=== PATIENT | male | born 1950 | race Caucasian/White ===

== ENCOUNTER 2020-10-27 14:17 | Inpatient (IN) ==
[2020-10-27 14:52] LABS: ABG BASE EXCESS -1.2 mmol/L (-2.0-2.0); ABG HCO3 23.6 mmol/L (22-26)
[2020-10-27 14:53] LABS: ABG ALLEN TEST POS
[2020-10-27 15:06] LABS: BASOPHILS % (AUTO) 0.3 % (0.2-1.0); EOSINOPHILS % (AUTO) 0.1 % (0.9-2.9); HEMATOCRIT 49.3 % (42.0-54.0); HEMOGLOBIN 15.9 g/dL (13.5-18.0); LYMPHOCYTES # (AUTO) 0.4 X10^3/uL (1.3-2.9); LYMPHOCYTES % (AUTO) 3.4 % (21.0-51.0); MEAN CORPUSCULAR HEMOGLOBIN 27.7 pg (27.0-34.0); MEAN CORPUSCULAR HGB CONC 32.3 g/dL (33.0-35.0); MEAN CORPUSCULAR VOLUME 85.6 fL (80.0-100.0); MEAN PLATELET VOLUME 7.2 fL (7.4-11.0); MONOCYTES # (AUTO) 0.4 x10^3/uL (0.3-0.8); MONOCYTES % (AUTO) 3.5 % (0.0-13.0); NEUTROPHILS # (AUTO) 9.9 x10^3/uL (2.2-4.8); NEUTROPHILS % (AUTO) 92.7 % (42.0-75.0); PLATELET COUNT 217 X10^3/uL (150.0-450.0); RED BLOOD COUNT 5.76 X10^6/uL (4.7-6.0); RED CELL DISTRIBUTION WIDTH 14.2 % (11.6-16.5); WHITE BLOOD COUNT 10.7 X10^3/uL (3.6-10.0)
--- NOTE | 2020-10-27 15:08 | RAD ---
HISTORYCOVID, INFUSIONSTUDYCHEST, 1 VIEWCOMPARISONMarch 2019[facility], AP portable projection, 1 imageFINDINGSNo cardiomegaly.Left lower lung hazy airspace opacities and patchy peripheral right lung airspace opacities.No pleural effusion.No pneumothorax.No acute osseous abnormality.IMPRESSIONLeft lower lung hazy airspace opacities and patchy peripheral right lung airspace opacities. Findings consistent with a Covid 19 respiratory infection.Electronically signed by: Kirk Muse (Oct 27, 2020 15:06:23)
[2020-10-27 15:10] VITALS: BMI 36.9
--- NOTE | 2020-10-27 15:18 | DR.FEVERAD ---
HPI Time seen Time Seen by Provider: 10/27/20 15:06 PCP Primary Care Physician: JEVON HPI Comment HPI Comment: Patient found to be febrile when he showed up for outpatient remdesivir infusion today. Sent to ED for eval by PCP. Complaints/Symptoms Chief Complaint:: PT. WAS HERE AN OUT PATIENT FOR REMDESIVIR INFUSION. UPON ARRIVAL TO THE HOSPITAL, PT'S O2 SAT WAS 64% ON ROOM AIR. DR. ESCOTO WAS NOTIFIED AND ADVISED STAFF TO BRING PT. TO THE ER FOR FURTHER EVALUATION. PT. BEGAN HAVING SYMPTOMS ON MONDAY. PT. C/O FEVER, CHILLS, COUGH, SHORTNESS OF BREATH AND DIARRHEA. O2 SAT 86% ON N/C @ 3LPM UPON ARRIVAL TO THE ER. Source History Provided: Patient and Other Mode of Arrival Mode of Arrival: Wheelchair Timing Onset of Chief Complaint: 10/22/20 PMH PMH Past Medical History: Yes Past Medical History: Hypertension Past Surgical History: Yes Surgical History: Cholecystectomy Family History History of Family Medical Conditions: Yes Family Medical History: Hypertension Social History Does patient currently use any type of tobacco product: No Have you used tobacco products in the last 12 months: No Type of Tobacco Use: None Does any household member use tobacco: No Alcohol Use: None Do you use any recreational Drugs:: No Lives With: Spouse Lives Where: Home Infectious screening In the last 2 months have you had wt loss of >10#?: NO Have you had fever, night sweats or hemotysis?: No Have you traveled outside the country in the last 6 months?: No Isolation: Droplet PE Vital Signs Vitals: Temperature 102.2 F Pulse Rate 103 Respiratory Rate 20 Blood Pressure 113/59 O2 Sat by Pulse Oximetry 89 General Limitations: No Limitations General Appearance: Alert and In No Apparent Distress Head Head Exam: Normal Inspection, Atraumatic and Normocephalic Eyes Eye exam: Normal Appearance, PERRL and EOMI Neck Neck Exam: Normal Inspection, Full ROM and Trachea Midline Respiratory Respiratory Exam: Bilateral: Rhonchi Cardiovascular Cardiovascular Exam: Regular Rate, Normal Rhythm and Normal Heart Sounds Abdominal Exam Abdominal Exam: Normal Inspection, Normal Bowel Sounds and Soft Extremities Extremities Exam: Normal Inspection and Full ROM Psychiatric Psychiatric Exam: Normal Affect and Normal Mood Skin Skin Exam: Warm, Dry and Intact COURSE Consultation Consultation Comments: Spoke with Dr. Escoto who accepts patient for admission. ROR Labs Reviewed Result Diagrams: 10/27/20 14:48 10/27/20 14:48 Laboratory: WBC 10.7 X10^3/uL (3.6-10.0) H 10/27/20 14:48 RBC 5.76 X10^6/uL (4.7-6.0) 10/27/20 14:48 Hgb 15.9 g/dL (13.5-18.0) 10/27/20 14:48 Hct 49.3 % (42.0-54.0) 10/27/20 14:48 MCV 85.6 fL (80.0-100.0) 10/27/20 14:48 MCH 27.7 pg (27.0-34.0) 10/27/20 14:48 MCHC 32.3 g/dL (33.0-35.0) L 10/27/20 14:48 RDW 14.2 % (11.6-16.5) 10/27/20 14:48 Plt Count 217 X10^3/uL (150.0-450.0) 10/27/20 14:48 Plt Count Comment Adequate (ADEQUATE) 10/27/20 14:48 MPV 7.2 fL (7.4-11.0) L 10/27/20 14:48 Neut % (Auto) 92.7 % (42.0-75.0) H 10/27/20 14:48 Lymph % (Auto) 3.4 % (21.0-51.0) L 10/27/20 14:48 [place] % (Auto) 3.5 % (0.0-13.0) 10/27/20 14:48 Eos % (Auto) 0.1 % (0.9-2.9) L 10/27/20 14:48 Baso % (Auto) 0.3 % (0.2-1.0) 10/27/20 14:48 Neut # (Auto) 9.9 x10^3/uL (2.2-4.8) H 10/27/20 14:48 Lymph # (Auto) 0.4 X10^3/uL (1.3-2.9) L 10/27/20 14:48 [place] # (Auto) 0.4 x10^3/uL (0.3-0.8) 10/27/20 14:48 Eos # (Auto) 0.0 x10^3/uL (0.0-0.2) 10/27/20 14:48 Baso # (Auto) 0.0 X10^3/uL (0.0-0.1) 10/27/20 14:48 Absolute Nucleated RBC 0.0 /100WBC 10/27/20 14:48 Total Counted 100 10/27/20 14:48 Neutrophils % (Manual) 88 % (39-76) H 10/27/20 14:48 Band Neutrophils % 7 % (0-10) 10/27/20 14:48 Lymphocytes % (Manual) 3 % (13-43) L 10/27/20 14:48 Monocytes % (Manual) 1 % (4-9) L 10/27/20 14:48 Eosinophils % (Manual) 1 % (0-6) 10/27/20 14:48 Plt Morphology Comment Normal (NORMAL) 10/27/20 14:48 RBC Morphology Normal (NORMAL) 10/27/20 14:48 D-Dimer 1.13 ug/ml (0.0-0.57) H* 10/27/20 14:48 Sample Site Lr 10/27/20 14:46 ABG pH 7.390 (7.35-7.45) 10/27/20 14:46 ABG pCO2 39.0 mmHg (35.0-45.0) 10/27/20 14:46 ABG pO2 45.0 mmHg (80.0-100.0) L* 10/27/20 14:46 ABG HCO3 23.6 mmol/L (22-26) 10/27/20 14:46 ABG O2 Saturation 80.0 % (90-100) L* 10/27/20 14:46 ABG Base Excess -1.2 mmol/L (-2.0-2.0) 10/27/20 14:46 Ramesh Test Pos 10/27/20 14:46 A-a Gradient 56.0 mmHg 10/27/20 14:46 FiO2 21.0 10/27/20 14:46 Blood Gas Comments Maude well cb 10/27/20 14:46 Sodium 131 mmol/L (136-145) L 10/27/20 14:48 Corrected Sodium TNP 10/27/20 14:48 Potassium 4.8 mmol/L (3.5-5.1) 10/27/20 14:48 Chloride 95 mmol/L (98-107) L 10/27/20 14:48 Carbon Dioxide 25.5 mmol/L (21-32) 10/27/20 14:48 BUN 24 mg/dL (7-18) H 10/27/20 14:48 Creatinine 1.70 mg/dL (0.70-1.30) H 10/27/20 14:48 Est GFR (MDRD) Af Amer 51 (>60) L 10/27/20 14:48 Est GFR (MDRD) Non-Af 42 (>60) L 10/27/20 14:48 Glucose 108 mg/dL (65-99) H 10/27/20 14:48 Calcium 9.1 mg/dL (8.5-10.1) 10/27/20 14:48 Corrected Calcium 10.0 mg/dL (8.5-10.1) 10/27/20 14:48 Ferritin 757 ng/mL (26-388) H 10/27/20 14:48 Total Bilirubin 0.30 mg/dL (0.2-1.0) 10/27/20 14:48 AST 57 Units/L (15-37) H 10/27/20 14:48 ALT 32 Units/L (12-78) 10/27/20 14:48 Alkaline Phosphatase 63 Units/L (46-116) 10/27/20 14:48 C-Reactive Protein 96.40 mg/L (0-3.0) H 10/27/20 14:48 B-Natriuretic Peptide 37.6 pg/mL (0-79) 10/27/20 14:48 Total Protein 7.6 g/dL (6.4-8.2) 10/27/20 14:48 Albumin 2.9 g/dL (3.4-5.0) L 10/27/20 14:48 Globulin 4.7 g/dL (2.5-4.5) H 10/27/20 14:48 Albumin/Globulin Ratio 0.6 Ratio (1.1-2.1) L 10/27/20 14:48 Influenza Type A (PCR) Negative (NEGATIVE) 10/27/20 15:21 Influenza Type B (PCR) Negative (NEGATIVE) 10/27/20 15:21 XRAY X-ray Results: Name: ANU WOO : 1950 Sex: M Location: ER Order Number(s): [id number] Procedure(s):CHEST, 1 VIEW Ordering Physician: Bishop Escoto Primary Care: Bishop Escoto Service Date: 10/27/20 Service Time: 1428 HISTORY COVID, INFUSION STUDY CHEST, 1 VIEW COMPARISON December 20, 2019 TECHNIQUE Chest radiographic imaging, AP portable projection, 1 image FINDINGS No cardiomegaly. Left lower lung hazy airspace opacities and patchy peripheral right lung airspace opacities. No pleural effusion. No pneumothorax. No acute osseous abnormality. IMPRESSION Left lower lung hazy airspace opacities and patchy peripheral right lung airspace opacities. Findings consistent with a Covid 19 respiratory infection. Electronically signed by: Kirk Muse (Oct 27, 2020 15:06:23) Report Electronically signed: 10/27/20 1508 CC: Bishop Escoto EKG [place]: Normal Rhythm: NSR Block: None Hypertrophy: None ST: Normal Opioid Opioid Risk Tool Total: 0 Total Score Risk Category: Low Risk Copyright: [employer] LIN predicting aberrant behaviors Diagnosis Discharge Problem: Pneumonia due to 2019 novel coronavirus
[2020-10-27] MEDS ORDERED: MOTRIN TAB 800 MG PO ONE ×2 (15:23→15:26)
[2020-10-27 15:28] LABS: ALANINE AMINOTRANSFERASE 32 Units/L (12-78); ALBUMIN 2.9 g/dL (3.4-5.0); ALKALINE PHOSPHATASE 63 Units/L (46-116); ASPARTATE AMINO TRANSFERASE 57 Units/L (15-37); BLOOD UREA NITROGEN 24 mg/dL (7-18); CALCIUM 9.1 mg/dL (8.5-10.1); CARBON DIOXIDE 25.5 mmol/L (21-32); CHLORIDE 95 mmol/L (98-107); SODIUM 131 mmol/L (136-145); TOTAL PROTEIN 7.6 g/dL (6.4-8.2); eGFR NON BLACK RACES 42 (>60)
[2020-10-27 15:42] LABS: BAND NEUTROPHILS % 7 % (0-10); PLATELET MORPHOLOGY COMMENT NORMAL (NORMAL)
[2020-10-27] MEDS ORDERED: SOLU-Medrol 125 MG VIAL IVP ONE (16:41)
[2020-10-27] MEDS ORDERED: REMDESIVIR 200 MG in NS 250 ML IV 250 ML IV ONE ×2 (16:43→18:02)
[2020-10-27] MEDS ORDERED: SOLU-Medrol 125 MG VIAL ONE (17:02)
[2020-10-27] MEDS ORDERED: NS 1000 ML 1,000 ML ONE (17:03)
[2020-10-27] MEDS ORDERED: NS 250 ML IV 250 ML IV ONE (17:03)
[2020-10-27] MEDS ORDERED: REMDESIVIR IV ONE (17:03)
[2020-10-27] MEDS ORDERED: LOVENOX INJ 100 MG SYR SC ONE (17:23)
[2020-10-27] MEDS: LOVENOX INJ 100 MG SYR SC SCH ×2 (17:29→23:11)
[2020-10-27] MEDS ORDERED: MAGIC MOUTHWASH MT PRN (18:02)
[2020-10-27] MEDS ORDERED: HumuLIN R SUBCUT PRN (18:02)
[2020-10-27] MEDS ORDERED: NS 1/2 1000 ML IV 1,000 ML IV SCH (19:00)
[2020-10-27] MEDS ORDERED: ACCUNEB 1.25 MG NEBULE NEB SCH (21:00)
[2020-10-27] MEDS ORDERED: MUCOMYST 20% 200 MG/ML NEB SCH (21:00)
[2020-10-27] MEDS ORDERED: XOPENEX 1.25 MG/3 ML NEBULE NEB SCH (21:00)
[2020-10-27] MEDS: DIFLUCAN PO SCH (23:08)
[2020-10-27] MEDS: LEVAQUIN PREMIX IV 500 MG 500 MG/100 ML BAG IV SCH (23:09)
[2020-10-27] MEDS: ZINC SULFATE PO SCH (23:09)
[2020-10-27] MEDS: VITAMIN D3 125 mcg (5,000 UNITS) PO SCH (23:09)
[2020-10-27] MEDS: ASCORBIC ACID INJ MULTI-DOSE VIAL 1,500 MG in NS 50 ML IV 50 ML IV SCH (23:10)
[2020-10-27] MEDS: LIPITOR TAB 80 MG PO SCH (23:10)
[2020-10-27] MEDS: MELATONIN PO SCH (23:11)
[2020-10-27] MEDS: MILK OF MAGNESIA PO SCH (23:12)
[2020-10-27] MEDS: PROTONIX TAB 40 MG PO SCH (23:12)
[2020-10-27] MEDS: ROBITUSSIN DM PO SCH (23:12)
[2020-10-27] MEDS: PEPCID TAB 20 MG PO SCH (23:12)
[2020-10-27] MEDS: SNACK - Diabetic Appropriate PO SCH (23:13)
[2020-10-27] MEDS: SINGULAIR TAB 10 MG PO SCH (23:13)
[2020-10-27] MEDS: SOLU-Medrol 125 MG VIAL IVP SCH (23:14)
[2020-10-27] MEDS: THEO-DUR TAB 300 MG 12-HR PO SCH (23:14)
[2020-10-27] MEDS: THIAMINE HCL INJ IVP SCH (23:15)
[2020-10-27] MEDS: FORTAZ or TAZICEF VIAL INJ IV SCH (23:15)
[2020-10-27] MEDS: TESSALON PERLES PO SCH (23:16)
[2020-10-27] MEDS: IVERMECTIN PO SCH (23:30)
[2020-10-28] MEDS: MUCOMYST 20% 200 MG/ML NEB SCH ×4 (01:00→18:00)
[2020-10-28] MEDS: ACCUNEB 1.25 MG NEBULE NEB SCH ×4 (01:00→18:00)
[2020-10-28] MEDS: ASCORBIC ACID INJ MULTI-DOSE VIAL 1,500 MG in NS 50 ML IV 50 ML IV SCH ×4 (02:50→21:55)
[2020-10-28] MEDS: SOLU-Medrol 125 MG VIAL IVP SCH ×4 (02:50→21:55)
[2020-10-28 04:53] LABS: ABG ALLEN TEST POS; ABG HCO3 20.9 mmol/L (22-26)
[2020-10-28] MEDS ORDERED: NS 100 ML IV + SPIKE MINIBAG* 100 ML IV ONE (05:16)
[2020-10-28 05:26] LABS: BASOPHILS % (AUTO) 0.5 % (0.2-1.0); HEMATOCRIT 50.2 % (42.0-54.0); HEMOGLOBIN 16.3 g/dL (13.5-18.0); LYMPHOCYTES # (AUTO) 0.4 X10^3/uL (1.3-2.9); LYMPHOCYTES % (AUTO) 4.2 % (21.0-51.0); MEAN CORPUSCULAR HEMOGLOBIN 27.8 pg (27.0-34.0); MEAN CORPUSCULAR HGB CONC 32.5 g/dL (33.0-35.0); MEAN CORPUSCULAR VOLUME 85.7 fL (80.0-100.0); MEAN PLATELET VOLUME 7.7 fL (7.4-11.0); MONOCYTES # (AUTO) 0.2 x10^3/uL (0.3-0.8); MONOCYTES % (AUTO) 2.6 % (0.0-13.0); NEUTROPHILS # (AUTO) 7.9 x10^3/uL (2.2-4.8); NEUTROPHILS % (AUTO) 92.7 % (42.0-75.0); PLATELET COUNT 221 X10^3/uL (150.0-450.0); RED BLOOD COUNT 5.87 X10^6/uL (4.7-6.0); RED CELL DISTRIBUTION WIDTH 14.6 % (11.6-16.5); WHITE BLOOD COUNT 8.5 X10^3/uL (3.6-10.0)
[2020-10-28 05:31] LABS: ALANINE AMINOTRANSFERASE 35 Units/L (12-78); ALBUMIN 2.8 g/dL (3.4-5.0); ALKALINE PHOSPHATASE 64 Units/L (46-116); ASPARTATE AMINO TRANSFERASE 69 Units/L (15-37); BLOOD UREA NITROGEN 27 mg/dL (7-18); CALCIUM 8.7 mg/dL (8.5-10.1); CHLORIDE 95 mmol/L (98-107); COR CA(FOR HYPOALB) 9.7 mg/dL (8.5-10.1); COR NA(FOR HYPERGLY) 133 mmol/L (136-145); CREATININE 1.41 mg/dL (0.70-1.30); SODIUM 131 mmol/L (136-145); TOTAL PROTEIN 7.6 g/dL (6.4-8.2); eGFR NON BLACK RACES 53 (>60)
[2020-10-28] MEDS ORDERED: NS 100 ML IV 100 ML IV ONE (06:10)
[2020-10-28] MEDS: FORTAZ or TAZICEF VIAL INJ IV SCH ×3 (06:13→21:55)
[2020-10-28] MEDS: TESSALON PERLES PO SCH ×3 (06:14→21:55)
[2020-10-28 06:17] LABS: BAND NEUTROPHILS % 1 % (0-10); PLATELET MORPHOLOGY COMMENT NORMAL (NORMAL)
--- NOTE | 2020-10-28 07:24 | CT ---
HISTORYCOVID+ ELEVATED DDIMER 1.13STUDYCTA CHESTCOMPARISONPremier Health [facility] Centert radi[facility] from 10/1920TECHNIQUECTA chest protocol with axial images from the thoracic inlet to upper abdomen with IV contrast. Sagittal and coronal reformats and MIP images were created. Automated exposure control was utilized.FINDINGSThe visualized thyroid gland appears benign. Mildly atherosclerotic normal caliber thoracic aorta. Pulmonary artery is normal in caliber centrally. No filling defect is identified to suggest pulmonary embolism. The heart is borderline in size. No pericardial effusion. 1 cm right lower paratracheal lymph node image 41 series 4. Cm short axis right hilar lymph node image 50 series 4. Small hiatal hernia. Cholecystectomy. Bilateral renal cysts. No acute osseous abnormality. The trachea and mainstem bronchi appear patent. There are bilateral ground-glass opacities throughout both lungs with a peripheral distribution. There are multiple lucencies within these opacities. 5 x 4 mm left lower lobe pulmonary nodule image 96 series 5. 6 x 4 mm left upper lobe more nodule image 26 series 5. No pleural effusion or pneumothorax.IMPRESSIONNo definite pulmonary embolism. Bilateral peripheral distribution of ground-glass opacities consistent with COVID 19. Background of emphysema. Likely reactive mild mediastinal and hilar adenopathy.Electronically signed by: Collin Torres (Oct 28, 2020 07:22:55)
[2020-10-28] MEDS ORDERED: ZOFRAN INJ 4 MG VIAL IVP PRN (07:43)
[2020-10-28] MEDS ORDERED: ZOFRAN INJ 4 MG VIAL ONE (07:47)
[2020-10-28] MEDS ORDERED: REMDESIVIR 100 MG in NS 250 ML IV 250 ML IV SCH (09:00)
[2020-10-28] MEDS: PULMICORT NEB TX 0.5 MG NEB SCH ×3 (09:05→21:10)
[2020-10-28] MEDS: LOVENOX INJ 100 MG SYR SC SCH ×2 (09:34→21:55)
[2020-10-28] MEDS: DIFLUCAN PO SCH (09:34)
[2020-10-28] MEDS: LEVAQUIN PREMIX IV 500 MG 500 MG/100 ML BAG IV SCH (09:34)
[2020-10-28] MEDS: ZyrTEC TAB 10 MG PO SCH (09:35)
[2020-10-28] MEDS: MILK OF MAGNESIA PO SCH ×2 (09:35→10:03)
[2020-10-28] MEDS: THIAMINE HCL INJ IVP SCH ×2 (09:36→21:55)
[2020-10-28] MEDS: VITAMIN D3 125 mcg (5,000 UNITS) PO SCH (09:36)
[2020-10-28] MEDS: ZINC SULFATE PO SCH (09:36)
[2020-10-28] MEDS: ROBITUSSIN DM PO SCH ×4 (09:37→21:55)
[2020-10-28] MEDS: PROTONIX TAB 40 MG PO SCH (09:37)
[2020-10-28] MEDS: THEO-DUR TAB 300 MG 12-HR PO SCH ×2 (09:37→21:55)
[2020-10-28] MEDS: PEPCID TAB 20 MG PO SCH ×2 (09:38→21:55)
[2020-10-28] MEDS ORDERED: BENADRYL INJ 50 MG VIAL IVP ONE (11:21)
[2020-10-28] MEDS ORDERED: TYLENOL 325 MG TAB PO ONE (11:21)
[2020-10-28] MEDS: ZOFRAN INJ 4 MG VIAL IVP PRN ×3 (12:03→23:55)
[2020-10-28] MEDS: NS 1000 ML 1,000 ML IV SCH ×2 (13:20→21:55)
[2020-10-28] MEDS: REMDESIVIR 100 MG in NS 250 ML IV 250 ML IV SCH (16:51)
--- NOTE | 2020-10-28 19:47 | DR.H&P ---
H&P - History & Physical for Day of: H&P Date: 10/27/20 - Chief Complaint Chief Complaint: FEVER, COUGH, SOB, WEAKNESS, DIARRHEA, COVID POSITIVE, LOW OXYGEN SATURATIONS - History of Present Illness History of Present Illness: IS A 70 YEAR OLD PATIENT OF OURS. HE PRESENTED TO THE OFFICE YESTERDAY WITH COMPLAINTS OF FEVER, COUGH, SHORTNESS OF BREATH, DIARRHEA, AND WEAKNESS. HE WAS TESTED FOR COVID-19 AND WAS POSITIVE. SYMPTOMS STARTED ABOUT 5 DAYS PRIOR. PATIENT REPORTS THAT HE RECENTLY TRAVELED TO [place]. HIS PMH INCLUDES HTN AND CHOLECYSTECTOMY. HIS OXYGEN SATURATIONS IN THE OFFICE WERE NOTED TO BE 64% ON ROOM AIR EXAMINATION REVEALED RALES THROUGHOUT. HE WAS SENT TO THE ER FOR FURTHER EVALUATION AND TREATMENT. ON ARRIVAL TO THE ER, VITALS WERE 102.2-106-20-86%NC @ 2LPM-134/59. LABS WERE OBTAINED. ABNORMAL LAB VALUES INCLUDE THE FOLLOWING: WBC 10.7, D-DIMER 1.13, SODIUM 131, CHLORIDE 95, BUN 24, CREATININE 1.70, GLUCOSE 108, FERRITIN 757, AST 57, CRP 96.40, ALBUMIN 2.9, GLOBULIN 4.7. AN ABG WAS OBTAINED AND REVEALED: PH 7.390, PC02 39, P02 45, HC03 23.6, 02 SAT 80, A-A GRADIENT 56, FI02 21. BLOOD CULTURES ARE PENDING. A CHEST XRAY WAS OBTAINED AND REVEALED: Left lower lung hazy airspace opacities and patchy peripheral right lung airspace opacities. Findings consistent with a Covid 19 respiratory infection. A CHEST CTA WAS OBTAINED AND REVEALED: definite pulmonary embolism. Bilateral peripheral distribution of ground-glass opacities consistent with COVID 19. Background of emphysema. Likely reactive mild mediastinal and hilar adenopathy. WHILE IN THE ER, HE WAS GIVEN MOTRIN 800MG PO X 1, SOLU-MEDROL 125MG IV X 1, AND REMDESIVIR 200MG IV X 1. HE WAS ADMITTED TO THE HOSPITAL FOR FURTHER EVALUATION AND TREATMENT OF PNEUMONIA DUE TO COVID-19 AND HYPOXIA. HE WAS STARTED ON NORMAL SALINE AT 75 ML/HR, REMDESIVIR 100MG IV DAILY, FORTAZ 1G IV Q12H, LEVAQUIN 750MG IV Q48H, ALBUTEROL NEBS QID, MUCOMYST IN NEBS QID, PULMICORT NEBS BID, ASCORBIC ACID 1500MG IV Q6H, LIPITOR 80MG PO HS, TESSALON PERLES 200MG PO TID, ZYRTEC 10MG PO DAILY, TUSSIONEX 5ML PO Q12H PRN, COLACE 100MG PO HS, LOVENOX 100MG BID, PEPCID 20MG PO BID, DIFLUCAN 100MG PO DAILY, ROBITUSSIN DM 10ML PO QID, IVERMECTIN- PHARMACY TO DOSE, MAGIC MOUTHWASH QID, MILK OF MAG BID PRN, MELATONIN 10MG PO HS, SOLU-MEDROL 125MG IV Q6H, SINGULAIR 10MG PO HS, PROTONIX 40MG PO DAILY, THIAMINE 200MG IV BID, ELIEZER-DUR 300MG PO BID, AND ZINC SULFATE 220MG PO DAILY. WE WILL OBTAIN AN ECHOCARDIOGRAM. OTHERWISE, WE WILL FOLLOW UP WITH AM LABS, CHEST XRAY, ABG, AND CONTINUE TO MONITOR. TIME SPENT ON CLINICAL ASSESSMENT, REVIEWING LABS AND IMAGING, DECISION MAKING, AND DOCUMENTATION GREATER THAN 75 MINUTES. - Past Medical History Past Medical History: Hypertension - Past Surgical History Surgical History: Cholecystectomy, Tonsillectomy - Family History Family Medical History: Cancer, Coronary Artery Disease - Social History Does patient currently use any type of tobacco product: No Have you used tobacco products in the last 12 months: No Type of Tobacco Use: None Does any household member use tobacco: No Alcohol Use: None Drug Use: None - Medications Home Medications: No Known Drug Allergies Allergy (Verified 10/27/20 15:06) CONTINUE taking the following medications simvastatin 20 mg PO HS 10/27/20 [History] aspirin 325 mg PO DAILY 10/28/20 [History] benzonatate mg PO 10/28/20 [History] hydrocodone-chlorpheniramine ml PO 10/28/20 [History] levofloxacin 10/28/20 [History] methylprednisolone mg 10/28/20 [History] valacyclovir 10/28/20 [History] - Review of Systems Constitutional: Fever, Chills, Weakness Eyes: No Symptoms Reported ENT: No Symptoms Reported Respiratory: See HPI, Cough, Shortness of Breath, SOB with Excertion Cardiovascular: No Symptoms Reported Gastrointestinal: Diarrhea Genitourinary: No Symptoms Reported Musculoskeletal: No Symptoms Reported Skin: No Symptoms Reported Neurological: Weakness - Physical Exam Vital Signs: Temperature 98.6 F Pulse Rate [Left Radial] 89 Pulse Rate 60 Respiratory Rate 24 Blood Pressure [Left Arm] 126/58 Blood Pressure 118/73 O2 Sat by Pulse Oximetry 92 Oriented: Normal Eyes: Normal Ear: Normal Nose: Normal Throat: Normal Respiratory: Rales Throughout Cardiovascular: Tachycardia : Normal Auscultation: Bowel Sounds: Normal Palpation: Normal Tenderness: Normal Skin: Normal Musculoskeletal: Normal Psychiatric: Normal Mood Description: Calm Affect: Normal Speech Pattern: Clear - Assessment/Plan (1) Pneumonia due to 2019 novel coronavirus Status: Acute Plan: ADMIT, SUPPLEMENTAL OXYGEN, NORMAL SALINE AT 75 ML/HR, REMDESIVIR 100MG IV DAILY, FORTAZ 1G IV Q12H, LEVAQUIN 750MG IV Q48H, ALBUTEROL NEBS QID, MUCOMYST IN NEBS QID, PULMICORT NEBS BID, ASCORBIC ACID 1500MG IV Q6H, LIPITOR 80MG PO HS, TESSALON PERLES 200MG PO TID, ZYRTEC 10MG PO DAILY, TUSSIONEX 5ML PO Q12H PRN, COLACE 100MG PO HS, LOVENOX 100MG BID, PEPCID 20MG PO BID, DIFLUCAN 100MG PO DAILY, ROBITUSSIN DM 10ML PO QID, IVERMECTIN- PHARMACY TO DOSE, MAGIC MOUTHWASH QID, MILK OF MAG BID PRN, MELATONIN 10MG PO HS, SOLU-MEDROL 125MG IV Q6H, SINGULAIR 10MG PO HS, PROTONIX 40MG PO DAILY, THIAMINE 200MG IV BID, ELIEZER- DUR 300MG PO BID, AND ZINC SULFATE 220MG PO DAILY. WE WILL OBTAIN AN ECHOCARDIOGRAM. (2) Hypoxia Status: Acute - Allergies Allergies/Adverse Reactions: Allergies Allergy/AdvReac Type Severity Reaction Status Date / Time No Known Drug Allergies Allergy Verified 10/27/20 15:06
[2020-10-28] MEDS: SINGULAIR TAB 10 MG PO SCH (21:55)
[2020-10-28] MEDS: LIPITOR TAB 80 MG PO SCH (21:55)
[2020-10-28] MEDS: MELATONIN PO SCH (21:55)
[2020-10-29] MEDS: MUCOMYST 20% 200 MG/ML NEB SCH ×4 (00:24→17:10)
[2020-10-29] MEDS: ACCUNEB 1.25 MG NEBULE NEB SCH ×4 (00:24→17:10)
[2020-10-29] MEDS: SNACK - Diabetic Appropriate PO SCH ×2 (00:45→20:00)
[2020-10-29] MEDS: MILK OF MAGNESIA PO SCH ×2 (01:10→10:16)
[2020-10-29] MEDS: PHENERGAN TAB 25 MG PO PRN ×3 (02:30→17:59)
[2020-10-29] MEDS: ASCORBIC ACID INJ MULTI-DOSE VIAL 1,500 MG in NS 50 ML IV 50 ML IV SCH ×4 (02:30→21:42)
[2020-10-29] MEDS: SOLU-Medrol 125 MG VIAL IVP SCH ×4 (02:51→21:44)
[2020-10-29 05:20] LABS: BASOPHILS % (AUTO) 0.1 % (0.2-1.0); HEMATOCRIT 45.1 % (42.0-54.0); HEMOGLOBIN 14.7 g/dL (13.5-18.0); LYMPHOCYTES # (AUTO) 0.5 X10^3/uL (1.3-2.9); LYMPHOCYTES % (AUTO) 3.9 % (21.0-51.0); MEAN CORPUSCULAR HEMOGLOBIN 27.7 pg (27.0-34.0); MEAN CORPUSCULAR HGB CONC 32.5 g/dL (33.0-35.0); MEAN CORPUSCULAR VOLUME 85.1 fL (80.0-100.0); MEAN PLATELET VOLUME 7.5 fL (7.4-11.0); MONOCYTES # (AUTO) 0.6 x10^3/uL (0.3-0.8); MONOCYTES % (AUTO) 4.2 % (0.0-13.0); NEUTROPHILS # (AUTO) 12.6 x10^3/uL (2.2-4.8); NEUTROPHILS % (AUTO) 91.8 % (42.0-75.0); PLATELET COUNT 250 X10^3/uL (150.0-450.0); RED CELL DISTRIBUTION WIDTH 14.3 % (11.6-16.5); WHITE BLOOD COUNT 13.7 X10^3/uL (3.6-10.0)
[2020-10-29 05:32] LABS: ALANINE AMINOTRANSFERASE 46 Units/L (12-78); ALBUMIN 2.5 g/dL (3.4-5.0); ALKALINE PHOSPHATASE 72 Units/L (46-116); ASPARTATE AMINO TRANSFERASE 91 Units/L (15-37); BLOOD UREA NITROGEN 26 mg/dL (7-18); CALCIUM 8.2 mg/dL (8.5-10.1); CARBON DIOXIDE 22.3 mmol/L (21-32); CHLORIDE 99 mmol/L (98-107); COR CA(FOR HYPOALB) 9.4 mg/dL (8.5-10.1); COR NA(FOR HYPERGLY) 134 mmol/L (136-145); SODIUM 133 mmol/L (136-145); TOTAL PROTEIN 6.6 g/dL (6.4-8.2); eGFR NON BLACK RACES 58 (>60)
[2020-10-29 05:52] LABS: ABG ALLEN TEST POS; ABG HCO3 23.8 mmol/L (22-26)
[2020-10-29] MEDS: FORTAZ or TAZICEF VIAL INJ IV SCH ×3 (05:55→22:49)
[2020-10-29] MEDS: TESSALON PERLES PO SCH ×3 (05:55→22:43)
[2020-10-29 06:02] LABS: PLATELET MORPHOLOGY COMMENT NORMAL (NORMAL)
--- NOTE | 2020-10-29 07:08 | RAD ---
HISTORYNo change mild cardiomegaly without congestive heart failure shortness of breathSTUDYChest AP [id number]/19/2021, CTA chest 10/2020FINDINGSThe heart is enlarged. No congestive heart failure is noted. The lungs are hypoinflated. Bilateral predominantly peripheral interstitial and ground-glass infiltrates are unchanged. No pleural effusions are identified. Bony thorax is unremarkable.IMPRESSIONNo change bilateral interstitial and ground-glass infiltrates predominantly peripherally located.Electronically signed by: THOMAS GRAY (Oct 29, 2020 07:06:52)
[2020-10-29] MEDS: DIFLUCAN PO SCH (08:25)
[2020-10-29] MEDS: LEVAQUIN PREMIX IV 500 MG 500 MG/100 ML BAG IV SCH (08:26)
[2020-10-29] MEDS: ZINC SULFATE PO SCH (08:27)
[2020-10-29] MEDS: PEPCID TAB 20 MG PO SCH ×2 (08:27→21:39)
[2020-10-29] MEDS: PROTONIX TAB 40 MG PO SCH (08:27)
[2020-10-29] MEDS: VITAMIN D3 125 mcg (5,000 UNITS) PO SCH (08:28)
[2020-10-29] MEDS: THIAMINE HCL INJ IVP SCH ×2 (08:28→21:47)
[2020-10-29] MEDS: ZyrTEC TAB 10 MG PO SCH (08:28)
[2020-10-29] MEDS: LOVENOX INJ 100 MG SYR SC SCH ×2 (08:29→21:40)
[2020-10-29] MEDS: ROBITUSSIN DM PO SCH ×4 (08:29→21:40)
[2020-10-29] MEDS: THEO-DUR TAB 300 MG 12-HR PO SCH ×2 (08:29→21:39)
[2020-10-29] MEDS: PULMICORT NEB TX 0.5 MG NEB SCH ×2 (09:41→21:10)
[2020-10-29] MEDS: MAXZIDE 37.5/25 MG PO SCH (10:15)
[2020-10-29] MEDS: COZAAR PO SCH (10:15)
[2020-10-29] MEDS: REMDESIVIR 100 MG in NS 250 ML IV 250 ML IV SCH (17:11)
[2020-10-29] MEDS ORDERED: TYLENOL 325 MG TAB PO PRN (20:29)
--- NOTE | 2020-10-29 21:14 | PCM.PROG ---
Progress Note - Progress Note for Day of Date of Exam: 10/28/20 - Subjective Subjective: WAS ADMITTED FOR TREATMENT OF PNEUMONIA DUE TO COVID-19 AND HYPOXIA. TODAY, HE IS ALERT, LYING IN BED ON MORNING ROUNDS. HE CONTINUES WITH COMPLAINT OF A NON-PRODUCTIVE COUGH, SHORTNESS OF BREATH, AND GENERALIZED WEAKNESS. HE DENIES SIGNIFICANT IMPROVEMENT IN SYMPTOMS SINCE ADMISSION. HE IS CURRENTLY ON HEATED HIGH FLOW OXYGEN AT 80% FI02. HIS OXYGEN SATURATIONS HAVE BEEN 88-95% THIS MORNING AND THROUGHOUT THE NIGHT. ON EXAMINATION, HEART IS REGULAR IN RATE AND RHYTHM. BILATERAL LUNGS ARE NOTED WITH RALES THROUGHOUT. ABDOMEN IS ROUND, SOFT, AND NON-TENDER WITH NORMAL BOWEL SOUNDS NOTED IN ALL QUADRANTS. HIS VITALS THIS MORNING ARE: 98.9-94-24-90%HHF-160/77. LABS WERE OBTAINED. ABNORMAL LAB VALUES INCLUDE THE FOLLOWING: SODIUM 131, CHLORIDE 95, BUN 27, CREATININE 1.41, GLUCOSE 166, FERRITIN 1254, AST 69, CRP 171.10, ALBUMIN 2.8, GLOBULIN 4.8. AN ABG WAS OBTAINED AND REVEALED: PH 7.410, PC02 33, P02 82, HC03 20.9, 02 SAT 96, A-A GRADIENT 447, FI02 80. BLOOD CULTURES ARE PENDING. A CHEST CTA WAS OBTAINED AND REVEALED: No definite pulmonary embolism. Bilateral peripheral distribution of ground-glass opacities consistent with COVID 19. Background of emphysema. Likely reactive mild mediastinal and hilar adenopathy. ECHO REVEALED AN EJECTION FRACTION OF 52%. HE IS CURRENTLY RECEIVING NORMAL SALINE AT 75 ML/HR, REMDESIVIR 100MG IV DAILY, FORTAZ 1G IV Q12H, LEVAQUIN 750MG IV Q48H, ALBUTEROL NEBS QID, MUCOMYST IN NEBS QID, PULMICORT NEBS BID, ASCORBIC ACID 1500MG IV Q6H, LIPITOR 80MG PO HS, TESSALON PERLES 200MG PO TID, ZYRTEC 10MG PO DAILY, TUSSIONEX 5ML PO Q12H PRN, COLACE 100MG PO HS, LOVENOX 100MG BID, PEPCID 20MG PO BID, DIFLUCAN 100MG PO DAILY, ROBITUSSIN DM 10ML PO QID, IVERMECTIN- PHARMACY TO DOSE, MAGIC MOUTHWASH QID, MILK OF MAG BID PRN, MELATONIN 10MG PO HS, SOLU-MEDROL 125MG IV Q6H, SINGULAIR 10MG PO HS, PROTONIX 40MG PO DAILY, THIAMINE 200MG IV BID, ELIEZER-DUR 300MG PO BID, AND ZINC SULFATE 220MG PO DAILY. WE WILL CONTINUE WITH CURRENT PLAN OF CARE TODAY. OTHERWISE, WE PLAN TO FOLLOW UP WITH AM LABS AND CONTINUE TO MONITOR. TIME SPENT ON CLINICAL ASSESSMENT, REVIEWING LABS AND IMAGING, DECISION MAKING, AND DOCUMENTATION GREATER THAN 75 MINUTES. - Past Medical Family Social History Past Med/Fam/Surg Hx: No changes since H&P Allergies: Allergies No Known Drug Allergies Allergy (Verified 10/27/20 15:06) - Review of Systems ROS: No change since H&P - Vital Signs and I&O's Vital Signs: Temperature 98.2 F Pulse Rate [Left Radial] 98 Pulse Rate 89 Respiratory Rate 20 Blood Pressure [Left Arm] 175/79 Blood Pressure 118/73 O2 Sat by Pulse Oximetry 93 Intake and Output: Intake & Output 10/27/20 10/28/20 10/29/20 10/30/20 11:59 11:59 11:59 11:59 Intake Total 1299 / 1299 3556 / 3556 1659 / 1659 Output Total 1550 / 1550 Balance 1299 / 1299 2005 1659 / 1659 - Physical Exam Oriented: Normal Eyes: Normal Ear: Normal Nose: Normal Throat: Normal Respiratory: Generalized, Rales Cardiovascular: Normal : Normal Auscultation: Bowel Sounds: Normal Palpation: Normal Tenderness: Normal Skin: Normal Musculoskeletal: Normal Psychiatric: Normal Mood Description: Calm Affect: Normal Speech Pattern: Clear, Appropriate - Laboratory and Diagnostics Result Diagrams: 10/29/20 04:10 10/29/20 04:10 Labs: 10/27/20 15:29 Blood Blood Culture - Preliminary 10/27/20 15:24 Blood Blood Culture - Preliminary Laboratory WBC 13.7 X10^3/uL (3.6-10.0) H 10/29/20 04:10 RBC 5.30 X10^6/uL (4.7-6.0) 10/29/20 04:10 Hgb 14.7 g/dL (13.5-18.0) 10/29/20 04:10 Hct 45.1 % (42.0-54.0) 10/29/20 04:10 MCV 85.1 fL (80.0-100.0) 10/29/20 04:10 MCH 27.7 pg (27.0-34.0) 10/29/20 04:10 MCHC 32.5 g/dL (33.0-35.0) L 10/29/20 04:10 RDW 14.3 % (11.6-16.5) 10/29/20 04:10 Plt Count 250 X10^3/uL (150.0-450.0) 10/29/20 04:10 Plt Count Comment Adequate (ADEQUATE) 10/29/20 04:10 MPV 7.5 fL (7.4-11.0) 10/29/20 04:10 Neut % (Auto) 91.8 % (42.0-75.0) H 10/29/20 04:10 Lymph % (Auto) 3.9 % (21.0-51.0) L 10/29/20 04:10 [place] % (Auto) 4.2 % (0.0-13.0) 10/29/20 04:10 Eos % (Auto) 0.0 % (0.9-2.9) L 10/29/20 04:10 Baso % (Auto) 0.1 % (0.2-1.0) L 10/29/20 04:10 Neut # (Auto) 12.6 x10^3/uL (2.2-4.8) H 10/29/20 04:10 Lymph # (Auto) 0.5 X10^3/uL (1.3-2.9) L 10/29/20 04:10 [place] # (Auto) 0.6 x10^3/uL (0.3-0.8) 10/29/20 04:10 Eos # (Auto) 0.0 x10^3/uL (0.0-0.2) 10/29/20 04:10 Baso # (Auto) 0.0 X10^3/uL (0.0-0.1) 10/29/20 04:10 Absolute Nucleated RBC 0.0 /100WBC 10/29/20 04:10 Total Counted 100 10/29/20 04:10 Neutrophils % (Manual) 88 % (39-76) H 10/29/20 04:10 Band Neutrophils % 1 % (0-10) 10/28/20 04:15 Lymphocytes % (Manual) 8 % (13-43) L 10/29/20 04:10 Monocytes % (Manual) 4 % (4-9) 10/29/20 04:10 Eosinophils % (Manual) 1 % (0-6) 10/27/20 14:48 Plt Morphology Comment Normal (NORMAL) 10/29/20 04:10 RBC Morphology Normal (NORMAL) 10/29/20 04:10 D-Dimer 0.97 ug/ml (0.0-0.57) H* 10/29/20 04:10 Sample Site Rr 10/29/20 05:15 ABG pH 7.440 (7.35-7.45) 10/29/20 05:15 ABG pCO2 35.0 mmHg (35.0-45.0) 10/29/20 05:15 ABG pO2 74.0 mmHg (80.0-100.0) L 10/29/20 05:15 ABG HCO3 23.8 mmol/L (22-26) 10/29/20 05:15 ABG O2 Saturation 95.0 % (90-100) 10/29/20 05:15 ABG Base Excess 0.0 mmol/L (-2.0-2.0) 10/29/20 05:15 Ramesh Test Pos 10/29/20 05:15 A-a Gradient 488.0 mmHg 10/29/20 05:15 FiO2 85.0 10/29/20 05:15 Blood Gas Comments Maude well, kh 10/29/20 05:15 Sodium 133 mmol/L (136-145) L 10/29/20 04:10 Corrected Sodium 134 mmol/L (136-145) L 10/29/20 04:10 Potassium 3.8 mmol/L (3.5-5.1) 10/29/20 04:10 Chloride 99 mmol/L (98-107) 10/29/20 04:10 Carbon Dioxide 22.3 mmol/L (21-32) 10/29/20 04:10 BUN 26 mg/dL (7-18) H 10/29/20 04:10 Creatinine 1.30 mg/dL (0.70-1.30) 10/29/20 04:10 Est GFR (MDRD) Af Amer > 60 (>60) 10/29/20 04:10 Est GFR (MDRD) Non-Af 58 (>60) L 10/29/20 04:10 Glucose 161 mg/dL (65-99) H 10/29/20 04:10 Calcium 8.2 mg/dL (8.5-10.1) L 10/29/20 04:10 Corrected Calcium 9.4 mg/dL (8.5-10.1) 10/29/20 04:10 Ferritin 1690 ng/mL (26-388) H 10/29/20 04:10 Total Bilirubin 0.50 mg/dL (0.2-1.0) 10/29/20 04:10 AST 91 Units/L (15-37) H 10/29/20 04:10 ALT 46 Units/L (12-78) 10/29/20 04:10 Alkaline Phosphatase 72 Units/L (46-116) 10/29/20 04:10 C-Reactive Protein 98.50 mg/L (0-3.0) H 10/29/20 04:10 B-Natriuretic Peptide 35.6 pg/mL (0-79) 10/29/20 04:10 Total Protein 6.6 g/dL (6.4-8.2) 10/29/20 04:10 Albumin 2.5 g/dL (3.4-5.0) L 10/29/20 04:10 Globulin 4.1 g/dL (2.5-4.5) 10/29/20 04:10 Albumin/Globulin Ratio 0.6 Ratio (1.1-2.1) L 10/29/20 04:10 Influenza Type A (PCR) Negative (NEGATIVE) 10/27/20 15:21 Influenza Type B (PCR) Negative (NEGATIVE) 10/27/20 15:21 Blood Type O POSITIVE 10/28/20 12:30 - Plan (1) Pneumonia due to 2019 novel coronavirus Status: Acute Plan: SUPPLEMENTAL OXYGEN, NORMAL SALINE AT 75 ML/HR, REMDESIVIR 100MG IV DAILY, FORTAZ 1G IV Q12H, LEVAQUIN 750MG IV Q48H, ALBUTEROL NEBS QID, MUCOMYST IN NEBS QID, PULMICORT NEBS BID, ASCORBIC ACID 1500MG IV Q6H, LIPITOR 80MG PO HS, TESSALON PERLES 200MG PO TID, ZYRTEC 10MG PO DAILY, TUSSIONEX 5ML PO Q12H PRN, COLACE 100MG PO HS, LOVENOX 100MG BID, PEPCID 20MG PO BID, DIFLUCAN 100MG PO DAILY, ROBITUSSIN DM 10ML PO QID, IVERMECTIN- PHARMACY TO DOSE, MAGIC MOUTHWASH QID, MILK OF MAG BID PRN, MELATONIN 10MG PO HS, SOLU-MEDROL 125MG IV Q6H, SINGULAIR 10MG PO HS, PROTONIX 40MG PO DAILY, THIAMINE 200MG IV BID, ELIEZER- DUR 300MG PO BID, AND ZINC SULFATE 220MG PO DAILY. (2) Hypoxia Status: Acute
--- NOTE | 2020-10-29 21:25 | PCM.PROG ---
Progress Note - Progress Note for Day of Date of Exam: 10/29/20 - Subjective Subjective: WAS ADMITTED FOR TREATMENT OF PNEUMONIA DUE TO COVID-19 AND HYPOXIA. TODAY, HE IS ALERT, LYING IN BED ON MORNING ROUNDS. HE CONTINUES WITH COMPLAINT OF A NON-PRODUCTIVE COUGH, SHORTNESS OF BREATH, AND GENERALIZED WEAKNESS. HE REPORTS SLIGHT IMPROVEMENT IN SYMPTOMS SINCE YESTERDAY. HE IS CURRENTLY ON HEATED HIGH FLOW OXYGEN AT 80% FI02. HIS OXYGEN SATURATIONS HAVE BEEN 90-98% THIS MORNING AND THROUGHOUT THE NIGHT. ON EXAMINATION, HEART IS REGULAR IN RATE AND RHYTHM. BILATERAL LUNGS ARE NOTED WITH RALES THROUGHOUT. ABDOMEN IS ROUND, SOFT, AND NON-TENDER WITH NORMAL BOWEL SOUNDS NOTED IN ALL QUADRANTS. HIS VITALS THIS MORNING ARE: 97.8-86-18-94%-167/69. LABS WERE OBTAINED. ABNORMAL LAB VALUES INCLUDE THE FOLLOWING: WBC 13.7, D-DIMER 0.97, SODIUM 133, BUN 26, GLUCOSE 161, CALCIUM 8.2, FERRITIN 1690, AST 91, CRP 98.50, ALBUMIN 2.5. AN ABG WAS OBTAINED AND REVEALED: PH 7.440, PC02 35, P02 74, HC03 23.8, 02 SAT 95, A-A GRADIENT 488, FI02 85. BLOOD CULTURES ARE PENDING. A CHEST CTA WAS OBTAINED AND REVEALED: change bilateral interstitial and ground-glass infiltrates predominantly peripherally located. HE IS CURRENTLY RECEIVING NORMAL SALINE AT 75 ML/HR, REMDESIVIR 100MG IV DAILY, FORTAZ 1G IV Q12H, LEVAQUIN 750MG IV Q48H, ALBUTEROL NEBS QID, MUCOMYST IN NEBS QID, PULMICORT NEBS BID, ASCORBIC ACID 1500MG IV Q6H, LIPITOR 80MG PO HS, TESSALON PERLES 200MG PO TID, ZYRTEC 10MG PO DAILY, TUSSIONEX 5ML PO Q12H PRN, COLACE 100MG PO HS, LOVENOX 100MG BID, PEPCID 20MG PO BID, DIFLUCAN 100MG PO DAILY, ROBITUSSIN DM 10ML PO QID, IVERMECTIN- PHARMACY TO DOSE, MAGIC MOUTHWASH QID, MILK OF MAG BID PRN, MELATONIN 10MG PO HS, SOLU-MEDROL 125MG IV Q6H, SINGULAIR 10MG PO HS, PROTONIX 40MG PO DAILY, THIAMINE 200MG IV BID, ELIEZER-DUR 300MG PO BID, AND ZINC SULFATE 220MG PO DAILY. WE WILL CONTINUE WITH CURRENT PLAN OF CARE TODAY. OTHERWISE, WE PLAN TO FOLLOW UP WITH AM LABS AND CONTINUE TO MONITOR. TIME SPENT ON CLINICAL ASSESSMENT, REVIEWING LABS AND IMAGING, DECISION MAKING, AND DOCUMENTATION GREATER THAN 75 MINUTES. - Past Medical Family Social History Past Med/Fam/Surg Hx: No changes since H&P Allergies: Allergies No Known Drug Allergies Allergy (Verified 10/27/20 15:06) - Review of Systems ROS: No change since H&P - Vital Signs and I&O's Vital Signs: Temperature 98.2 F Pulse Rate [Left Radial] 98 Pulse Rate 89 Respiratory Rate 20 Blood Pressure [Left Arm] 175/79 Blood Pressure 118/73 O2 Sat by Pulse Oximetry 93 Intake and Output: Intake & Output 10/27/20 10/28/20 10/29/20 10/30/20 11:59 11:59 11:59 11:59 Intake Total 1299 / 1299 3556 / 3556 1659 / 1659 Output Total 1550 / 1550 Balance 1299 / 1299 2005 1659 / 1659 - Physical Exam Oriented: Normal Eyes: Normal Ear: Normal Nose: Normal Throat: Normal Respiratory: Generalized, Rales Cardiovascular: Normal : Normal Auscultation: Bowel Sounds: Normal Tenderness: Normal Skin: Normal Musculoskeletal: Normal Psychiatric: Normal Mood Description: Calm Affect: Normal Speech Pattern: Clear, Appropriate - Laboratory and Diagnostics Result Diagrams: 10/29/20 04:10 10/29/20 04:10 Labs: 10/27/20 15:29 Blood Blood Culture - Preliminary 10/27/20 15:24 Blood Blood Culture - Preliminary Laboratory WBC 13.7 X10^3/uL (3.6-10.0) H 10/29/20 04:10 RBC 5.30 X10^6/uL (4.7-6.0) 10/29/20 04:10 Hgb 14.7 g/dL (13.5-18.0) 10/29/20 04:10 Hct 45.1 % (42.0-54.0) 10/29/20 04:10 MCV 85.1 fL (80.0-100.0) 10/29/20 04:10 MCH 27.7 pg (27.0-34.0) 10/29/20 04:10 MCHC 32.5 g/dL (33.0-35.0) L 10/29/20 04:10 RDW 14.3 % (11.6-16.5) 10/29/20 04:10 Plt Count 250 X10^3/uL (150.0-450.0) 10/29/20 04:10 Plt Count Comment Adequate (ADEQUATE) 10/29/20 04:10 MPV 7.5 fL (7.4-11.0) 10/29/20 04:10 Neut % (Auto) 91.8 % (42.0-75.0) H 10/29/20 04:10 Lymph % (Auto) 3.9 % (21.0-51.0) L 10/29/20 04:10 [place] % (Auto) 4.2 % (0.0-13.0) 10/29/20 04:10 Eos % (Auto) 0.0 % (0.9-2.9) L 10/29/20 04:10 Baso % (Auto) 0.1 % (0.2-1.0) L 10/29/20 04:10 Neut # (Auto) 12.6 x10^3/uL (2.2-4.8) H 10/29/20 04:10 Lymph # (Auto) 0.5 X10^3/uL (1.3-2.9) L 10/29/20 04:10 [place] # (Auto) 0.6 x10^3/uL (0.3-0.8) 10/29/20 04:10 Eos # (Auto) 0.0 x10^3/uL (0.0-0.2) 10/29/20 04:10 Baso # (Auto) 0.0 X10^3/uL (0.0-0.1) 10/29/20 04:10 Absolute Nucleated RBC 0.0 /100WBC 10/29/20 04:10 Total Counted 100 10/29/20 04:10 Neutrophils % (Manual) 88 % (39-76) H 10/29/20 04:10 Band Neutrophils % 1 % (0-10) 10/28/20 04:15 Lymphocytes % (Manual) 8 % (13-43) L 10/29/20 04:10 Monocytes % (Manual) 4 % (4-9) 10/29/20 04:10 Eosinophils % (Manual) 1 % (0-6) 10/27/20 14:48 Plt Morphology Comment Normal (NORMAL) 10/29/20 04:10 RBC Morphology Normal (NORMAL) 10/29/20 04:10 D-Dimer 0.97 ug/ml (0.0-0.57) H* 10/29/20 04:10 Sample Site Rr 10/29/20 05:15 ABG pH 7.440 (7.35-7.45) 10/29/20 05:15 ABG pCO2 35.0 mmHg (35.0-45.0) 10/29/20 05:15 ABG pO2 74.0 mmHg (80.0-100.0) L 10/29/20 05:15 ABG HCO3 23.8 mmol/L (22-26) 10/29/20 05:15 ABG O2 Saturation 95.0 % (90-100) 10/29/20 05:15 ABG Base Excess 0.0 mmol/L (-2.0-2.0) 10/29/20 05:15 Ramesh Test Pos 10/29/20 05:15 A-a Gradient 488.0 mmHg 10/29/20 05:15 FiO2 85.0 10/29/20 05:15 Blood Gas Comments Maude well, kh 10/29/20 05:15 Sodium 133 mmol/L (136-145) L 10/29/20 04:10 Corrected Sodium 134 mmol/L (136-145) L 10/29/20 04:10 Potassium 3.8 mmol/L (3.5-5.1) 10/29/20 04:10 Chloride 99 mmol/L (98-107) 10/29/20 04:10 Carbon Dioxide 22.3 mmol/L (21-32) 10/29/20 04:10 BUN 26 mg/dL (7-18) H 10/29/20 04:10 Creatinine 1.30 mg/dL (0.70-1.30) 10/29/20 04:10 Est GFR (MDRD) Af Amer > 60 (>60) 10/29/20 04:10 Est GFR (MDRD) Non-Af 58 (>60) L 10/29/20 04:10 Glucose 161 mg/dL (65-99) H 10/29/20 04:10 Calcium 8.2 mg/dL (8.5-10.1) L 10/29/20 04:10 Corrected Calcium 9.4 mg/dL (8.5-10.1) 10/29/20 04:10 Ferritin 1690 ng/mL (26-388) H 10/29/20 04:10 Total Bilirubin 0.50 mg/dL (0.2-1.0) 10/29/20 04:10 AST 91 Units/L (15-37) H 10/29/20 04:10 ALT 46 Units/L (12-78) 10/29/20 04:10 Alkaline Phosphatase 72 Units/L (46-116) 10/29/20 04:10 C-Reactive Protein 98.50 mg/L (0-3.0) H 10/29/20 04:10 B-Natriuretic Peptide 35.6 pg/mL (0-79) 10/29/20 04:10 Total Protein 6.6 g/dL (6.4-8.2) 10/29/20 04:10 Albumin 2.5 g/dL (3.4-5.0) L 10/29/20 04:10 Globulin 4.1 g/dL (2.5-4.5) 10/29/20 04:10 Albumin/Globulin Ratio 0.6 Ratio (1.1-2.1) L 10/29/20 04:10 Influenza Type A (PCR) Negative (NEGATIVE) 10/27/20 15:21 Influenza Type B (PCR) Negative (NEGATIVE) 10/27/20 15:21 Blood Type O POSITIVE 10/28/20 12:30 - Plan (1) Pneumonia due to 2019 novel coronavirus Status: Acute Plan: SUPPLEMENTAL OXYGEN, NORMAL SALINE AT 75 ML/HR, REMDESIVIR 100MG IV DAILY, FORTAZ 1G IV Q12H, LEVAQUIN 750MG IV Q48H, ALBUTEROL NEBS QID, MUCOMYST IN NEBS QID, PULMICORT NEBS BID, ASCORBIC ACID 1500MG IV Q6H, LIPITOR 80MG PO HS, TESSALON PERLES 200MG PO TID, ZYRTEC 10MG PO DAILY, TUSSIONEX 5ML PO Q12H PRN, COLACE 100MG PO HS, LOVENOX 100MG BID, PEPCID 20MG PO BID, DIFLUCAN 100MG PO DAILY, ROBITUSSIN DM 10ML PO QID, IVERMECTIN- PHARMACY TO DOSE, MAGIC MOUTHWASH QID, MILK OF MAG BID PRN, MELATONIN 10MG PO HS, SOLU-MEDROL 125MG IV Q6H, SINGULAIR 10MG PO HS, PROTONIX 40MG PO DAILY, THIAMINE 200MG IV BID, ELIEZER- DUR 300MG PO BID, AND ZINC SULFATE 220MG PO DAILY. (2) Hypoxia Status: Acute
[2020-10-29] MEDS: SINGULAIR TAB 10 MG PO SCH (21:39)
[2020-10-29] MEDS: LIPITOR TAB 80 MG PO SCH (21:39)
[2020-10-29] MEDS: MELATONIN PO SCH (21:39)
[2020-10-29] MEDS: IVERMECTIN PO SCH (21:39)
[2020-10-29] MEDS: NS 1000 ML 1,000 ML IV SCH (22:45)
[2020-10-30] MEDS: ACCUNEB 1.25 MG NEBULE NEB SCH ×4 (00:53→17:14)
[2020-10-30] MEDS: MUCOMYST 20% 200 MG/ML NEB SCH ×4 (00:53→17:15)
[2020-10-30] MEDS: NS 1000 ML 1,000 ML IV SCH ×4 (00:56→16:42)
[2020-10-30] MEDS: MILK OF MAGNESIA PO SCH ×4 (00:59→21:36)
[2020-10-30] MEDS: ASCORBIC ACID INJ MULTI-DOSE VIAL 1,500 MG in NS 50 ML IV 50 ML IV SCH ×4 (02:43→21:10)
[2020-10-30] MEDS: PHENERGAN TAB 25 MG PO PRN ×4 (02:45→21:37)
[2020-10-30] MEDS: SOLU-Medrol 125 MG VIAL IVP SCH ×4 (02:45→21:15)
[2020-10-30] MEDS ORDERED: NS 100 ML IV 100 ML IV ONE (05:12)
[2020-10-30] MEDS: TESSALON PERLES PO SCH ×3 (05:23→21:17)
[2020-10-30] MEDS: FORTAZ or TAZICEF VIAL INJ IV SCH ×3 (05:25→21:16)
[2020-10-30 05:31] LABS: ABG ALLEN TEST POS; ABG BASE EXCESS 1.1 mmol/L (-2.0-2.0); ABG HCO3 25.1 mmol/L (22-26)
--- NOTE | 2020-10-30 06:15 | RAD ---
HISTORYShortness of breathSTUDYChest AP [id number] October 2020FINDINGSThe heart remains enlarged. No definite congestive heart failure is noted. Bilateral predominantly peripheral ground-glass and interstitial infiltrates are again identified not significantly changed in degree or distribution from the prior examination. The lungs are somewhat more hypo inflated than on the prior examination. No definite pleural effusions are identified. Bony thorax is unremarkable.IMPRESSIONLungs less well aerated than on the prior examinationNo change bilateral interstitial and ground-glass infiltrates when compared to the prior examinationElectronically signed by: THOMAS GRAY (Oct 30, 2020 06:13:52)
[2020-10-30 06:47] LABS: BASOPHILS % (AUTO) 0 % (0.2-1.0); HEMATOCRIT 45.7 % (42.0-54.0); HEMOGLOBIN 14.8 g/dL (13.5-18.0); LYMPHOCYTES # (AUTO) 0.5 X10^3/uL (1.3-2.9); LYMPHOCYTES % (AUTO) 3.1 % (21.0-51.0); MEAN CORPUSCULAR HEMOGLOBIN 27.6 pg (27.0-34.0); MEAN CORPUSCULAR HGB CONC 32.3 g/dL (33.0-35.0); MEAN CORPUSCULAR VOLUME 85.3 fL (80.0-100.0); MEAN PLATELET VOLUME 7.4 fL (7.4-11.0); MONOCYTES # (AUTO) 0.8 x10^3/uL (0.3-0.8); MONOCYTES % (AUTO) 4.8 % (0.0-13.0); NEUTROPHILS % (AUTO) 92.1 % (42.0-75.0); PLATELET COUNT 304 X10^3/uL (150.0-450.0); RED BLOOD COUNT 5.35 X10^6/uL (4.7-6.0); RED CELL DISTRIBUTION WIDTH 14.3 % (11.6-16.5); WHITE BLOOD COUNT 16.3 X10^3/uL (3.6-10.0)
[2020-10-30 06:55] LABS: ALANINE AMINOTRANSFERASE 52 Units/L (12-78); ALBUMIN 2.6 g/dL (3.4-5.0); ALKALINE PHOSPHATASE 98 Units/L (46-116); ASPARTATE AMINO TRANSFERASE 80 Units/L (15-37); BLOOD UREA NITROGEN 25 mg/dL (7-18); CALCIUM 8.2 mg/dL (8.5-10.1); CHLORIDE 102 mmol/L (98-107); COR CA(FOR HYPOALB) 9.3 mg/dL (8.5-10.1); COR NA(FOR HYPERGLY) 138 mmol/L (136-145); CREATININE 1.33 mg/dL (0.70-1.30); MAGNESIUM 2.1 mg/dL (1.7-2.9); SODIUM 137 mmol/L (136-145); TOTAL PROTEIN 6.6 g/dL (6.4-8.2); eGFR NON BLACK RACES 56 (>60)
[2020-10-30 08:00] LABS: BAND NEUTROPHILS % 2 % (0-10); PLATELET MORPHOLOGY COMMENT NORMAL (NORMAL)
[2020-10-30] MEDS: DIFLUCAN PO SCH (09:04)
[2020-10-30] MEDS: THEO-DUR TAB 300 MG 12-HR PO SCH ×2 (09:05→21:15)
[2020-10-30] MEDS: THIAMINE HCL INJ IVP SCH ×2 (09:05→21:15)
[2020-10-30] MEDS: COZAAR PO SCH (09:05)
[2020-10-30] MEDS: ZyrTEC TAB 10 MG PO SCH (09:06)
[2020-10-30] MEDS: VITAMIN D3 125 mcg (5,000 UNITS) PO SCH (09:06)
[2020-10-30] MEDS: LOVENOX INJ 100 MG SYR SC SCH ×2 (09:06→21:22)
[2020-10-30] MEDS: MAXZIDE 37.5/25 MG PO SCH (09:06)
[2020-10-30] MEDS: ZINC SULFATE PO SCH (09:07)
[2020-10-30] MEDS: LEVAQUIN PREMIX IV 500 MG 500 MG/100 ML BAG IV SCH (09:07)
[2020-10-30] MEDS: PROTONIX TAB 40 MG PO SCH (09:07)
[2020-10-30] MEDS: PEPCID TAB 20 MG PO SCH ×2 (09:08→21:14)
[2020-10-30] MEDS: ROBITUSSIN DM PO SCH ×4 (09:12→21:14)
[2020-10-30] MEDS: PULMICORT NEB TX 0.5 MG NEB SCH ×2 (09:48→20:30)
[2020-10-30] MEDS ORDERED: NS 100 ML IV + SPIKE MINIBAG* 100 ML IV ONE (14:23)
--- NOTE | 2020-10-30 14:41 | PCM.PROG ---
Progress Note - Progress Note for Day of Date of Exam: 10/30/20 - Subjective Subjective: WAS ADMITTED FOR TREATMENT OF PNEUMONIA DUE TO COVID-19 AND HYPOXIA. TODAY, HE IS ALERT, LYING IN BED ON MORNING ROUNDS. HE CONTINUES WITH COMPLAINT OF A NON-PRODUCTIVE COUGH, SHORTNESS OF BREATH, AND GENERALIZED WEAKNESS. HE REPORTS SLIGHT IMPROVEMENT IN SYMPTOMS SINCE YESTERDAY. HE IS CURRENTLY ON HEATED HIGH FLOW OXYGEN AT 80% FI02. HIS OXYGEN SATURATIONS HAVE BEEN 89-97% THIS MORNING AND THROUGHOUT THE NIGHT. ON EXAMINATION, HEART IS REGULAR IN RATE AND RHYTHM. BILATERAL LUNGS ARE NOTED WITH RALES THROUGHOUT. ABDOMEN IS ROUND, SOFT, AND NON-TENDER WITH NORMAL BOWEL SOUNDS NOTED IN ALL QUADRANTS. HIS VITALS THIS MORNING ARE: 97.7-87-26-97%-58/70. LABS WERE OBTAINED. ABNORMAL LAB VALUES INCLUDE THE FOLLOWING: WBC 16.3, D-DIMER 0.94, BUN 25, CREATININE 1.33, GLUCOSE 152, CALCIUM 8.2, FERRITIN 758, AST 80, CRP 47.40, ALBUMIN 2.6. BLOOD CULTURES ARE PENDING. AN ABG WAS OBTAINED AND REVEALED: PH 7.440, PC02 37, P02 70, HC03 25.1, 02 SAT 94, A-A GRADIENT 504, FI02 87. BLOOD CULTURES ARE PENDING. A CHEST XRAY WAS OBTAINED AND REVEALED: Lungs less well aerated than on the prior examination. No change bilateral interstitial and ground-glass infiltrates when compared to the prior examination. HE IS CURRENTLY RECEIVING NORMAL SALINE AT 75 ML/HR, REMDESIVIR 100MG IV DAILY, FORTAZ 1G IV Q12H, LEVAQUIN 750MG IV Q48H, ALBUTEROL NEBS QID, MUCOMYST IN NEBS QID, PULMICORT NEBS BID, ASCORBIC ACID 1500MG IV Q6H, LIPITOR 80MG PO HS, TESSALON PERLES 200MG PO TID, ZYRTEC 10MG PO DAILY, TUSSIONEX 5ML PO Q12H PRN, COLACE 100MG PO HS, LOVENOX 100MG BID, PEPCID 20MG PO BID, DIFLUCAN 100MG PO DAILY, ROBITUSSIN DM 10ML PO QID, IVERMECTIN- PHARMACY TO DOSE, MAGIC MOUTHWASH QID, MILK OF MAG BID PRN, MELATONIN 10MG PO HS, SOLU-MEDROL 125MG IV Q6H, SINGULAIR 10MG PO HS, PROTONIX 40MG PO DAILY, THIAMINE 200MG IV BID, ELIEZER-DUR 300MG PO BID, AND ZINC SULFATE 220MG PO DAILY. WE WILL CONTINUE WITH CURRENT PLAN OF CARE TODAY. OTHERWISE, WE PLAN TO FOLLOW UP WITH AM LABS AND CONTINUE TO MONITOR. TIME SPENT ON CLINICAL ASSESSMENT, REVIEWING LABS AND IMAGING, DECISION MAKING, AND DOCUMENTATION GREATER THAN 75 MINUTES. - Past Medical Family Social History Past Med/Fam/Surg Hx: No changes since H&P Allergies: Allergies No Known Drug Allergies Allergy (Verified 10/27/20 15:06) - Review of Systems ROS: No change since H&P - Vital Signs and I&O's Vital Signs: Temperature 97.7 F Pulse Rate [Left Radial] 87 Pulse Rate 87 Respiratory Rate 20 Blood Pressure [Left Arm] 158/70 Blood Pressure 118/73 O2 Sat by Pulse Oximetry 97 Intake and Output: Intake & Output 10/28/20 10/29/20 10/30/20 10/31/20 11:59 11:59 11:59 11:59 Intake Total 1299 / 1299 3556 / 3556 3966 / 3966 Output Total 1550 / 1550 Balance 1299 / 1299 2005 3966 / 3966 - Physical Exam Oriented: Normal Eyes: Normal Ear: Normal Nose: Normal Throat: Normal Respiratory: Generalized, Rales Cardiovascular: Normal : Normal Auscultation: Bowel Sounds: Normal Tenderness: Normal Skin: Normal Musculoskeletal: Normal Psychiatric: Normal Mood Description: Calm Affect: Normal Speech Pattern: Clear, Appropriate - Laboratory and Diagnostics Result Diagrams: 10/30/20 05:30 10/30/20 05:30 Labs: 10/27/20 15:29 Blood Blood Culture - Preliminary 10/27/20 15:24 Blood Blood Culture - Preliminary Laboratory WBC 16.3 X10^3/uL (3.6-10.0) H 10/30/20 05:30 RBC 5.35 X10^6/uL (4.7-6.0) 10/30/20 05:30 Hgb 14.8 g/dL (13.5-18.0) 10/30/20 05:30 Hct 45.7 % (42.0-54.0) 10/30/20 05:30 MCV 85.3 fL (80.0-100.0) 10/30/20 05:30 MCH 27.6 pg (27.0-34.0) 10/30/20 05:30 MCHC 32.3 g/dL (33.0-35.0) L 10/30/20 05:30 RDW 14.3 % (11.6-16.5) 10/30/20 05:30 Plt Count 304 X10^3/uL (150.0-450.0) 10/30/20 05:30 Plt Count Comment Adequate (ADEQUATE) 10/30/20 05:30 MPV 7.4 fL (7.4-11.0) 10/30/20 05:30 Neut % (Auto) 92.1 % (42.0-75.0) H 10/30/20 05:30 Lymph % (Auto) 3.1 % (21.0-51.0) L 10/30/20 05:30 [place] % (Auto) 4.8 % (0.0-13.0) 10/30/20 05:30 Eos % (Auto) 0.0 % (0.9-2.9) L 10/30/20 05:30 Baso % (Auto) 0 % (0.2-1.0) L 10/30/20 05:30 Neut # (Auto) 15.0 x10^3/uL (2.2-4.8) H 10/30/20 05:30 Lymph # (Auto) 0.5 X10^3/uL (1.3-2.9) L 10/30/20 05:30 [place] # (Auto) 0.8 x10^3/uL (0.3-0.8) 10/30/20 05:30 Eos # (Auto) 0.0 x10^3/uL (0.0-0.2) 10/30/20 05:30 Baso # (Auto) 0.0 X10^3/uL (0.0-0.1) 10/30/20 05:30 Absolute Nucleated RBC 0.1 /100WBC 10/30/20 05:30 Total Counted 100 10/30/20 05:30 Neutrophils % (Manual) 90 % (39-76) H 10/30/20 05:30 Band Neutrophils % 2 % (0-10) 10/30/20 05:30 Lymphocytes % (Manual) 4 % (13-43) L 10/30/20 05:30 Monocytes % (Manual) 4 % (4-9) 10/30/20 05:30 Eosinophils % (Manual) 1 % (0-6) 10/27/20 14:48 Plt Morphology Comment Normal (NORMAL) 10/30/20 05:30 RBC Morphology Normal (NORMAL) 10/30/20 05:30 D-Dimer 0.94 ug/ml (0.0-0.57) H* 10/30/20 05:30 Sample Site Lr 10/30/20 05:00 ABG pH 7.440 (7.35-7.45) 10/30/20 05:00 ABG pCO2 37.0 mmHg (35.0-45.0) 10/30/20 05:00 ABG pO2 70.0 mmHg (80.0-100.0) L 10/30/20 05:00 ABG HCO3 25.1 mmol/L (22-26) 10/30/20 05:00 ABG O2 Saturation 94.0 % (90-100) 10/30/20 05:00 ABG Base Excess 1.1 mmol/L (-2.0-2.0) 10/30/20 05:00 Ramesh Test Pos 10/30/20 05:00 A-a Gradient 504.0 mmHg 10/30/20 05:00 FiO2 87.0 10/30/20 05:00 Blood Gas Comments Maude well sw 10/30/20 05:00 Sodium 137 mmol/L (136-145) 10/30/20 05:30 Corrected Sodium 138 mmol/L (136-145) 10/30/20 05:30 Potassium 3.7 mmol/L (3.5-5.1) 10/30/20 05:30 Chloride 102 mmol/L (98-107) 10/30/20 05:30 Carbon Dioxide 24.0 mmol/L (21-32) 10/30/20 05:30 BUN 25 mg/dL (7-18) H 10/30/20 05:30 Creatinine 1.33 mg/dL (0.70-1.30) H 10/30/20 05:30 Est GFR (MDRD) Af Amer > 60 (>60) 10/30/20 05:30 Est GFR (MDRD) Non-Af 56 (>60) L 10/30/20 05:30 Glucose 152 mg/dL (65-99) H 10/30/20 05:30 Calcium 8.2 mg/dL (8.5-10.1) L 10/30/20 05:30 Corrected Calcium 9.3 mg/dL (8.5-10.1) 10/30/20 05:30 Magnesium 2.1 mg/dL (1.7-2.9) 10/30/20 05:30 Ferritin 758 ng/mL (26-388) H 10/30/20 05:30 Total Bilirubin 0.50 mg/dL (0.2-1.0) 10/30/20 05:30 AST 80 Units/L (15-37) H 10/30/20 05:30 ALT 52 Units/L (12-78) 10/30/20 05:30 Alkaline Phosphatase 98 Units/L (46-116) 10/30/20 05:30 C-Reactive Protein 47.40 mg/L (0-3.0) H 10/30/20 05:30 B-Natriuretic Peptide 57.6 pg/mL (0-79) 10/30/20 05:30 Total Protein 6.6 g/dL (6.4-8.2) 10/30/20 05:30 Albumin 2.6 g/dL (3.4-5.0) L 10/30/20 05:30 Globulin 4.0 g/dL (2.5-4.5) 10/30/20 05:30 Albumin/Globulin Ratio 0.7 Ratio (1.1-2.1) L 10/30/20 05:30 Influenza Type A (PCR) Negative (NEGATIVE) 10/27/20 15:21 Influenza Type B (PCR) Negative (NEGATIVE) 10/27/20 15:21 Blood Type O POSITIVE 10/28/20 12:30 - Plan (1) Pneumonia due to 2019 novel coronavirus Status: Acute Plan: SUPPLEMENTAL OXYGEN, NORMAL SALINE AT 75 ML/HR, REMDESIVIR 100MG IV DAILY, FORTAZ 1G IV Q12H, LEVAQUIN 750MG IV Q48H, ALBUTEROL NEBS QID, MUCOMYST IN NEBS QID, PULMICORT NEBS BID, ASCORBIC ACID 1500MG IV Q6H, LIPITOR 80MG PO HS, TESSALON PERLES 200MG PO TID, ZYRTEC 10MG PO DAILY, TUSSIONEX 5ML PO Q12H PRN, COLACE 100MG PO HS, LOVENOX 100MG BID, PEPCID 20MG PO BID, DIFLUCAN 100MG PO DAILY, ROBITUSSIN DM 10ML PO QID, IVERMECTIN- PHARMACY TO DOSE, MAGIC MOUTHWASH QID, MILK OF MAG BID PRN, MELATONIN 10MG PO HS, SOLU-MEDROL 125MG IV Q6H, SINGULAIR 10MG PO HS, PROTONIX 40MG PO DAILY, THIAMINE 200MG IV BID, ELIEZER- DUR 300MG PO BID, AND ZINC SULFATE 220MG PO DAILY. (2) Hypoxia Status: Acute
[2020-10-30] MEDS: REMDESIVIR 100 MG in NS 250 ML IV 250 ML IV SCH (17:15)
[2020-10-30] MEDS: SNACK - Diabetic Appropriate PO SCH (20:00)
[2020-10-30] MEDS ORDERED: MAALOX or MYLANTA PO PRN (20:25)
[2020-10-30] MEDS: LIPITOR TAB 80 MG PO SCH (21:11)
[2020-10-30] MEDS: MELATONIN PO SCH (21:13)
[2020-10-30] MEDS: SINGULAIR TAB 10 MG PO SCH (21:14)
[2020-10-31] MEDS: MUCOMYST 20% 200 MG/ML NEB SCH ×5 (00:25→20:00)
[2020-10-31] MEDS: ACCUNEB 1.25 MG NEBULE NEB SCH ×5 (00:25→20:00)
[2020-10-31] MEDS: TUSSIONEX PENNKINETIC SUSP PO PRN ×2 (02:28→22:44)
[2020-10-31] MEDS: SOLU-Medrol 125 MG VIAL IVP SCH ×4 (04:00→20:43)
[2020-10-31] MEDS: ASCORBIC ACID INJ MULTI-DOSE VIAL 1,500 MG in NS 50 ML IV 50 ML IV SCH ×4 (04:00→20:40)
[2020-10-31 04:43] LABS: ABG ALLEN TEST POS; ABG BASE EXCESS 4.2 mmol/L (-2.0-2.0); ABG HCO3 28.4 mmol/L (22-26)
[2020-10-31] MEDS: TESSALON PERLES PO SCH ×3 (06:00→22:43)
[2020-10-31] MEDS: FORTAZ or TAZICEF VIAL INJ IV SCH ×3 (06:00→22:42)
[2020-10-31 06:31] LABS: ALANINE AMINOTRANSFERASE 55 Units/L (12-78); ALBUMIN 2.4 g/dL (3.4-5.0); ALKALINE PHOSPHATASE 137 Units/L (46-116); ASPARTATE AMINO TRANSFERASE 79 Units/L (15-37); BLOOD UREA NITROGEN 24 mg/dL (7-18); CALCIUM 7.7 mg/dL (8.5-10.1); CARBON DIOXIDE 29.8 mmol/L (21-32); CHLORIDE 102 mmol/L (98-107); COR NA(FOR HYPERGLY) 139 mmol/L (136-145); SODIUM 138 mmol/L (136-145); TOTAL PROTEIN 5.8 g/dL (6.4-8.2); eGFR NON BLACK RACES > 60 (>60)
[2020-10-31 06:57] LABS: BASOPHILS % (AUTO) 0 % (0.2-1.0); HEMATOCRIT 39.4 % (42.0-54.0); HEMOGLOBIN 13.1 g/dL (13.5-18.0); LYMPHOCYTES # (AUTO) 0.4 X10^3/uL (1.3-2.9); LYMPHOCYTES % (AUTO) 2.1 % (21.0-51.0); MEAN CORPUSCULAR HEMOGLOBIN 27.8 pg (27.0-34.0); MEAN CORPUSCULAR HGB CONC 33.2 g/dL (33.0-35.0); MEAN CORPUSCULAR VOLUME 83.8 fL (80.0-100.0); MEAN PLATELET VOLUME 7.2 fL (7.4-11.0); MONOCYTES # (AUTO) 0.8 x10^3/uL (0.3-0.8); MONOCYTES % (AUTO) 4.9 % (0.0-13.0); NEUTROPHILS # (AUTO) 15.6 x10^3/uL (2.2-4.8); PLATELET COUNT 259 X10^3/uL (150.0-450.0); RED CELL DISTRIBUTION WIDTH 14.2 % (11.6-16.5); WHITE BLOOD COUNT 16.8 X10^3/uL (3.6-10.0)
--- NOTE | 2020-10-31 08:11 | RAD ---
HISTORYSOBSTUDYAP chestCOMPARISONJanuary 2020FINDINGSThere is no significant change in appearance of heart, lungs or mediastinum. Bilateral airspace disease is again noted, greatest in the left lower lobe. The upper lobes remain relatively clear. No large pleural effusion or pneumothorax identified.IMPRESSIONNo definite change in appearance of the bilateral pneumonia.Electronically signed by: DOROTHY HINDS (Oct 31, 2020 08:09:09)
[2020-10-31 09:24] LABS: BAND NEUTROPHILS % 1 % (0-10); PLATELET MORPHOLOGY COMMENT NORMAL (NORMAL)
[2020-10-31] MEDS: PULMICORT NEB TX 0.5 MG NEB SCH ×2 (09:30→20:00)
[2020-10-31] MEDS: NS 1000 ML 1,000 ML IV SCH ×2 (09:54→22:43)
[2020-10-31] MEDS: PHENERGAN TAB 25 MG PO PRN ×2 (09:55→20:43)
[2020-10-31] MEDS: ZyrTEC TAB 10 MG PO SCH (09:55)
[2020-10-31] MEDS: ZINC SULFATE PO SCH (09:55)
[2020-10-31] MEDS: THIAMINE HCL INJ IVP SCH ×2 (09:56→20:41)
[2020-10-31] MEDS: VITAMIN D3 125 mcg (5,000 UNITS) PO SCH (09:56)
[2020-10-31] MEDS: ROBITUSSIN DM PO SCH ×4 (09:56→20:43)
[2020-10-31] MEDS: THEO-DUR TAB 300 MG 12-HR PO SCH ×2 (09:56→20:42)
[2020-10-31] MEDS: PEPCID TAB 20 MG PO SCH ×2 (09:57→20:43)
[2020-10-31] MEDS: PROTONIX TAB 40 MG PO SCH (09:57)
[2020-10-31] MEDS: MAXZIDE 37.5/25 MG PO SCH (09:57)
[2020-10-31] MEDS: LEVAQUIN PREMIX IV 500 MG 500 MG/100 ML BAG IV SCH (09:58)
[2020-10-31] MEDS: LOVENOX INJ 100 MG SYR SC SCH ×2 (09:58→22:43)
[2020-10-31] MEDS: DIFLUCAN PO SCH (09:59)
[2020-10-31] MEDS: COZAAR PO SCH (09:59)
[2020-10-31] MEDS: MILK OF MAGNESIA PO SCH ×2 (10:00→20:52)
--- NOTE | 2020-10-31 11:58 | PCM.PROG ---
Progress Note - Progress Note for Day of Date of Exam: 10/31/20 - Subjective Subjective: WAS ADMITTED FOR TREATMENT OF PNEUMONIA DUE TO COVID-19 AND HYPOXIA. TODAY, HE IS ALERT, LYING IN BED ON MORNING ROUNDS. HE CONTINUES WITH COMPLAINT OF A NON-PRODUCTIVE COUGH, SHORTNESS OF BREATH, AND GENERALIZED WEAKNESS, BUT CONTINUES TO REPORT IMPROVEMENT SINCE PREVIOUS DAY. HE IS CURRENTLY ON HEATED HIGH FLOW OXYGEN AT 80% FI02. HIS OXYGEN SATURATIONS HAVE BEEN 87-97% THIS MORNING AND THROUGHOUT THE NIGHT. HE RECEIVED A UNIT OF CONVALESCENT PLASMA YESTERDAY AFTERNOON. ON EXAMINATION, HEART IS REGULAR IN RATE AND RHYTHM. BILATERAL LUNGS ARE NOTED WITH RALES THROUGHOUT. ABDOMEN IS ROUND, SOFT, AND NON-TENDER WITH NORMAL BOWEL SOUNDS NOTED IN ALL QUADRANTS. HIS VITALS THIS MORNING ARE: 98.0-96-24-87%-185/85. LABS WERE OBTAINED. ABNORMAL LAB VALUES INCLUDE THE FOLLOWING: WBC 16.8, HGB 13.1, HCT 39.4, D-DIMER 2.16, POTASSIUM 3.4, BUN 24, GLUCOSE 161, CALCIUM 7.7, FERRITIN 600, AST 79, ALK PHOS 137, CRP 23.80, TOTAL PROTEIN 5.8, ALBUMIN 2.4. BLOOD CULTURES ARE PENDING. AN ABG WAS OBTAINED AND REVEALED: PH 7.460, PC02 40, P02 75, HC03 28.4, 02 SAT 96, BASE EXCESS 4.2, A-A GRADIENT 531, FI02 92. BLOOD CULTURES ARE PENDING. A CHEST XRAY WAS OBTAINED AND REVEALED: No definite change in appearance of the bilateral pneumonia. HE IS CURRENTLY RECEIVING NORMAL SALINE AT 75 ML/HR, REMDESIVIR 100MG IV DAILY, FORTAZ 1G IV Q12H, LEVAQUIN 750MG IV Q48H, ALBUTEROL NEBS QID, MUCOMYST IN NEBS QID, PULMICORT NEBS BID, ASCORBIC ACID 1500MG IV Q6H, LIPITOR 80MG PO HS, TESSALON PERLES 200MG PO TID, ZYRTEC 10MG PO DAILY, TUSSIONEX 5ML PO Q12H PRN, COLACE 100MG PO HS, LOVENOX 100MG BID, PEPCID 20MG PO BID, DIFLUCAN 100MG PO DAILY, ROBITUSSIN DM 10ML PO QID, IVERMECTIN- PHARMACY TO DOSE, MAGIC MOUTHWASH QID, MILK OF MAG BID PRN, MELATONIN 10MG PO HS, SOLU- MEDROL 125MG IV Q6H, SINGULAIR 10MG PO HS, PROTONIX 40MG PO DAILY, THIAMINE 200MG IV BID, ELIEZER-DUR 300MG PO BID, AND ZINC SULFATE 220MG PO DAILY. WE WILL CONTINUE WITH CURRENT PLAN OF CARE TODAY. OTHERWISE, WE PLAN TO FOLLOW UP WITH AM LABS AND CONTINUE TO MONITOR. TIME SPENT ON CLINICAL ASSESSMENT, REVIEWING LABS AND IMAGING, DECISION MAKING, AND DOCUMENTATION GREATER THAN 75 MINUTES. - Past Medical Family Social History Past Med/Fam/Surg Hx: No changes since H&P Allergies: Allergies No Known Drug Allergies Allergy (Verified 10/27/20 15:06) - Review of Systems ROS: No change since H&P - Vital Signs and I&O's Vital Signs: Temperature 98 F Pulse Rate [Left Radial] 96 Pulse Rate 82 Respiratory Rate 24 Blood Pressure [Left Arm] 185/85 Blood Pressure 118/73 O2 Sat by Pulse Oximetry 87 Intake and Output: Intake & Output 10/28/20 10/29/20 10/30/20 10/31/20 11:59 11:59 11:59 11:59 Intake Total 1299 / 1299 3556 / 3556 3966 / 3966 2528 / 2528 Output Total 1550 / 1550 700 / 700 Balance 1299 / 1299 2005 3966 / 3966 1828 / 1828 - Physical Exam Oriented: Normal Eyes: Normal Ear: Normal Nose: Normal Throat: Normal Respiratory: Generalized, Rales Cardiovascular: Normal : Normal Auscultation: Bowel Sounds: Normal Tenderness: Normal Skin: Normal Musculoskeletal: Normal Psychiatric: Normal Mood Description: Calm Affect: Normal Speech Pattern: Clear, Appropriate - Laboratory and Diagnostics Result Diagrams: 10/31/20 06:07 10/31/20 06:07 Labs: 10/27/20 15:29 Blood Blood Culture - Preliminary 10/27/20 15:24 Blood Blood Culture - Preliminary Laboratory WBC 16.8 X10^3/uL (3.6-10.0) H 10/31/20 06:07 RBC 4.70 X10^6/uL (4.7-6.0) 10/31/20 06:07 Hgb 13.1 g/dL (13.5-18.0) L 10/31/20 06:07 Hct 39.4 % (42.0-54.0) L 10/31/20 06:07 MCV 83.8 fL (80.0-100.0) 10/31/20 06:07 MCH 27.8 pg (27.0-34.0) 10/31/20 06:07 MCHC 33.2 g/dL (33.0-35.0) 10/31/20 06:07 RDW 14.2 % (11.6-16.5) 10/31/20 06:07 Plt Count 259 X10^3/uL (150.0-450.0) 10/31/20 06:07 Plt Count Comment Adequate (ADEQUATE) 10/31/20 06:07 MPV 7.2 fL (7.4-11.0) L 10/31/20 06:07 Neut % (Auto) 93.0 % (42.0-75.0) H 10/31/20 06:07 Lymph % (Auto) 2.1 % (21.0-51.0) L 10/31/20 06:07 [place]ffie % (Auto) 4.9 % (0.0-13.0) 10/31/20 06:07 Eos % (Auto) 0.0 % (0.9-2.9) L 10/31/20 06:07 Baso % (Auto) 0 % (0.2-1.0) L 10/31/20 06:07 Neut # (Auto) 15.6 x10^3/uL (2.2-4.8) H 10/31/20 06:07 Lymph # (Auto) 0.4 X10^3/uL (1.3-2.9) L 10/31/20 06:07 [place]duffie # (Auto) 0.8 x10^3/uL (0.3-0.8) 10/31/20 06:07 Eos # (Auto) 0.0 x10^3/uL (0.0-0.2) 10/31/20 06:07 Baso # (Auto) 0.0 X10^3/uL (0.0-0.1) 10/31/20 06:07 Absolute Nucleated RBC 0.1 /100WBC 10/31/20 06:07 Total Counted 100 10/31/20 06:07 Neutrophils % (Manual) 93 % (39-76) H 10/31/20 06:07 Band Neutrophils % 1 % (0-10) 10/31/20 06:07 Lymphocytes % (Manual) 2 % (13-43) L 10/31/20 06:07 Monocytes % (Manual) 4 % (4-9) 10/31/20 06:07 Eosinophils % (Manual) 1 % (0-6) 10/27/20 14:48 Plt Morphology Comment Normal (NORMAL) 10/31/20 06:07 RBC Morphology Normal (NORMAL) 10/31/20 06:07 D-Dimer 2.16 ug/ml (0.0-0.57) H* 10/31/20 06:07 Sample Site Lr 10/31/20 04:38 ABG pH 7.460 (7.35-7.45) H 10/31/20 04:38 ABG pCO2 40.0 mmHg (35.0-45.0) 10/31/20 04:38 ABG pO2 75.0 mmHg (80.0-100.0) L 10/31/20 04:38 ABG HCO3 28.4 mmol/L (22-26) H 10/31/20 04:38 ABG O2 Saturation 96.0 % (90-100) 10/31/20 04:38 ABG Base Excess 4.2 mmol/L (-2.0-2.0) H 10/31/20 04:38 Ramesh Test Pos 10/31/20 04:38 A-a Gradient 531.0 mmHg 10/31/20 04:38 FiO2 92.0 10/31/20 04:38 Blood Gas Comments Maude well ae 10/31/20 04:38 Sodium 138 mmol/L (136-145) 10/31/20 06:07 Corrected Sodium 139 mmol/L (136-145) 10/31/20 06:07 Potassium 3.4 mmol/L (3.5-5.1) L 10/31/20 06:07 Chloride 102 mmol/L (98-107) 10/31/20 06:07 Carbon Dioxide 29.8 mmol/L (21-32) 10/31/20 06:07 BUN 24 mg/dL (7-18) H 10/31/20 06:07 Creatinine 1.20 mg/dL (0.70-1.30) 10/31/20 06:07 Est GFR (MDRD) Af Amer > 60 (>60) 10/31/20 06:07 Est GFR (MDRD) Non-Af > 60 (>60) 10/31/20 06:07 Glucose 161 mg/dL (65-99) H 10/31/20 06:07 Calcium 7.7 mg/dL (8.5-10.1) L 10/31/20 06:07 Corrected Calcium 9.0 mg/dL (8.5-10.1) 10/31/20 06:07 Magnesium 2.1 mg/dL (1.7-2.9) 10/30/20 05:30 Ferritin 600 ng/mL (26-388) H 10/31/20 06:07 Total Bilirubin 0.60 mg/dL (0.2-1.0) 10/31/20 06:07 AST 79 Units/L (15-37) H 10/31/20 06:07 ALT 55 Units/L (12-78) 10/31/20 06:07 Alkaline Phosphatase 137 Units/L (46-116) H 10/31/20 06:07 C-Reactive Protein 23.80 mg/L (0-3.0) H 10/31/20 06:07 B-Natriuretic Peptide 74.9 pg/mL (0-79) 10/31/20 06:07 Total Protein 5.8 g/dL (6.4-8.2) L 10/31/20 06:07 Albumin 2.4 g/dL (3.4-5.0) L 10/31/20 06:07 Globulin 3.4 g/dL (2.5-4.5) 10/31/20 06:07 Albumin/Globulin Ratio 0.7 Ratio (1.1-2.1) L 10/31/20 06:07 Influenza Type A (PCR) Negative (NEGATIVE) 10/27/20 15:21 Influenza Type B (PCR) Negative (NEGATIVE) 10/27/20 15:21 Blood Type O POSITIVE 10/28/20 12:30 - Plan (1) Pneumonia due to 2019 novel coronavirus Status: Acute Plan: SUPPLEMENTAL OXYGEN, NORMAL SALINE AT 75 ML/HR, REMDESIVIR 100MG IV DAILY, FORTAZ 1G IV Q12H, LEVAQUIN 750MG IV Q48H, ALBUTEROL NEBS QID, MUCOMYST IN NEBS QID, PULMICORT NEBS BID, ASCORBIC ACID 1500MG IV Q6H, LIPITOR 80MG PO HS, TESSALON PERLES 200MG PO TID, ZYRTEC 10MG PO DAILY, TUSSIONEX 5ML PO Q12H PRN, COLACE 100MG PO HS, LOVENOX 100MG BID, PEPCID 20MG PO BID, DIFLUCAN 100MG PO DAILY, ROBITUSSIN DM 10ML PO QID, IVERMECTIN- PHARMACY TO DOSE, MAGIC MOUTHWA SH QID, MILK OF MAG BID PRN, MELATONIN 10MG PO HS, SOLU-MEDROL 125MG IV Q6H, SINGULAIR 10MG PO HS, PROTONIX 40MG PO DAILY, THIAMINE 200MG IV BID, ELIEZER-DUR 300MG PO BID, AND ZINC SULFATE 220MG PO DAILY. (2) Hypoxia Status: Acute
[2020-10-31] MEDS ORDERED: ACCUNEB 1.25 MG NEBULE ONE (17:07)
[2020-10-31] MEDS: REMDESIVIR 100 MG in NS 250 ML IV 250 ML IV SCH (18:52)
[2020-10-31] MEDS: LIPITOR TAB 80 MG PO SCH (20:40)
[2020-10-31] MEDS: MELATONIN PO SCH (20:41)
[2020-10-31] MEDS: SINGULAIR TAB 10 MG PO SCH (20:42)
[2020-10-31] MEDS: SNACK - Diabetic Appropriate PO SCH (20:51)
[2020-11-01] MEDS: ASCORBIC ACID INJ MULTI-DOSE VIAL 1,500 MG in NS 50 ML IV 50 ML IV SCH ×4 (02:09→21:34)
[2020-11-01] MEDS: SOLU-Medrol 125 MG VIAL IVP SCH ×4 (02:10→21:36)
[2020-11-01 05:30] LABS: ABG ALLEN TEST POS; ABG BASE EXCESS 6.7 mmol/L (-2.0-2.0); ABG HCO3 31.9 mmol/L (22-26)
[2020-11-01] MEDS: FORTAZ or TAZICEF VIAL INJ IV SCH ×3 (05:52→21:34)
[2020-11-01] MEDS: TESSALON PERLES PO SCH ×3 (05:52→21:34)
[2020-11-01 06:38] LABS: ALANINE AMINOTRANSFERASE 66 Units/L (12-78); ALBUMIN 2.5 g/dL (3.4-5.0); ALKALINE PHOSPHATASE 192 Units/L (46-116); ASPARTATE AMINO TRANSFERASE 86 Units/L (15-37); BLOOD UREA NITROGEN 23 mg/dL (7-18); CARBON DIOXIDE 29.1 mmol/L (21-32); CHLORIDE 103 mmol/L (98-107); COR CA(FOR HYPOALB) 9.2 mg/dL (8.5-10.1); COR NA(FOR HYPERGLY) 142 mmol/L (136-145); CREATININE 1.33 mg/dL (0.70-1.30); SODIUM 140 mmol/L (136-145); TOTAL PROTEIN 6.4 g/dL (6.4-8.2); eGFR NON BLACK RACES 56 (>60)
[2020-11-01 06:39] LABS: BASOPHILS % (AUTO) 0.1 % (0.2-1.0); HEMATOCRIT 45.4 % (42.0-54.0); HEMOGLOBIN 14.6 g/dL (13.5-18.0); LYMPHOCYTES # (AUTO) 0.3 X10^3/uL (1.3-2.9); LYMPHOCYTES % (AUTO) 2.3 % (21.0-51.0); MEAN CORPUSCULAR HEMOGLOBIN 27.5 pg (27.0-34.0); MEAN CORPUSCULAR HGB CONC 32.1 g/dL (33.0-35.0); MEAN CORPUSCULAR VOLUME 85.6 fL (80.0-100.0); MEAN PLATELET VOLUME 7.1 fL (7.4-11.0); MONOCYTES # (AUTO) 0.6 x10^3/uL (0.3-0.8); MONOCYTES % (AUTO) 4.2 % (0.0-13.0); NEUTROPHILS # (AUTO) 13.9 x10^3/uL (2.2-4.8); NEUTROPHILS % (AUTO) 93.4 % (42.0-75.0); PLATELET COUNT 301 X10^3/uL (150.0-450.0); RED BLOOD COUNT 5.31 X10^6/uL (4.7-6.0); RED CELL DISTRIBUTION WIDTH 14.4 % (11.6-16.5); WHITE BLOOD COUNT 14.9 X10^3/uL (3.6-10.0)
--- NOTE | 2020-11-01 07:18 | RAD ---
HISTORYcovidSTUDYPortable AP [id number] size is probably unchanged although cardiac margins remain partly obscured by adjacent confluent airspace disease, left lung greater than right. There are no new areas of consolidation identified. The left diaphragm remains obscured by the parenchymal abnormality. No complicating pneumothorax or large pleural effusion is identified.IMPRESSIONNo change in appearance of the bilateral pneumonia.Electronically signed by: DOROTHY HINDS (Nov 01, 2020 07:16:40)
[2020-11-01 08:08] LABS: BAND NEUTROPHILS % 1 % (0-10)
[2020-11-01 08:09] LABS: PLATELET MORPHOLOGY COMMENT NORMAL (NORMAL)
[2020-11-01] MEDS: PULMICORT NEB TX 0.5 MG NEB SCH ×2 (09:00→21:30)
[2020-11-01] MEDS: MUCOMYST 20% 200 MG/ML NEB SCH ×4 (09:00→21:30)
[2020-11-01] MEDS: ACCUNEB 1.25 MG NEBULE NEB SCH ×4 (09:00→21:30)
[2020-11-01] MEDS: COZAAR PO SCH (11:11)
[2020-11-01] MEDS: DIFLUCAN PO SCH (11:12)
[2020-11-01] MEDS: LEVAQUIN PREMIX IV 500 MG 500 MG/100 ML BAG IV SCH (11:12)
[2020-11-01] MEDS: LOVENOX INJ 100 MG SYR SC SCH ×2 (11:12→21:35)
[2020-11-01] MEDS: MILK OF MAGNESIA PO SCH ×2 (11:13→21:37)
[2020-11-01] MEDS: MAXZIDE 37.5/25 MG PO SCH (11:13)
[2020-11-01] MEDS: PEPCID TAB 20 MG PO SCH ×2 (11:14→21:37)
[2020-11-01] MEDS: ROBITUSSIN DM PO SCH ×4 (11:15→21:37)
[2020-11-01] MEDS: PROTONIX TAB 40 MG PO SCH (11:16)
[2020-11-01] MEDS: THEO-DUR TAB 300 MG 12-HR PO SCH ×2 (11:16→21:35)
[2020-11-01] MEDS: ZINC SULFATE PO SCH (11:17)
[2020-11-01] MEDS: ZyrTEC TAB 10 MG PO SCH (11:17)
[2020-11-01] MEDS: THIAMINE HCL INJ IVP SCH ×2 (11:30→21:34)
[2020-11-01] MEDS: VITAMIN D3 125 mcg (5,000 UNITS) PO SCH (11:31)
[2020-11-01] MEDS: NS 1000 ML 1,000 ML IV SCH (15:15)
[2020-11-01] MEDS ORDERED: NS 100 ML IV 100 ML IV ONE ×2 (17:59→20:31)
[2020-11-01] MEDS ORDERED: FORTAZ or TAZICEF VIAL INJ ONE (20:31)
[2020-11-01] MEDS: LIPITOR TAB 80 MG PO SCH (21:34)
[2020-11-01] MEDS: MELATONIN PO SCH (21:35)
[2020-11-01] MEDS: SINGULAIR TAB 10 MG PO SCH (21:36)
[2020-11-01] MEDS: PHENERGAN TAB 25 MG PO PRN (21:38)
--- NOTE | 2020-11-01 21:55 | PCM.PROG ---
Progress Note - Progress Note for Day of Date of Exam: 11/01/20 - Subjective Subjective: WAS ADMITTED FOR TREATMENT OF PNEUMONIA DUE TO COVID-19 AND HYPOXIA. TODAY, HE IS ALERT, LYING IN BED ON MORNING ROUNDS. HE CONTINUES WITH COMPLAINT OF A NON-PRODUCTIVE COUGH, SHORTNESS OF BREATH, AND GENERALIZED WEAKNESS, BUT CONTINUES TO REPORT IMPROVEMENT SINCE PREVIOUS DAY. HE IS CURRENTLY ON HEATED HIGH FLOW OXYGEN AT 80% FI02. HIS OXYGEN SATURATIONS HAVE BEEN 88-94% THIS MORNING AND THROUGHOUT THE NIGHT. HE HAS RECEIVED ONE UNIT OF CONVALESCENT PLASMA. ON EXAMINATION, HEART IS REGULAR IN RATE AND RHYTHM. BILATERAL LUNGS ARE NOTED WITH RALES THROUGHOUT. ABDOMEN IS ROUND, SOFT, AND NON-TENDER WITH NORMAL BOWEL SOUNDS NOTED IN ALL QUADRANTS. HIS VITALS THIS MORNING ARE: 98.0-96-24-88%-185/85. LABS WERE OBTAINED. ABNORMAL LAB VALUES INCLUDE THE FOLLOWING: WBC 16.8, HGB 13.1, HCT 39.4, D-DIMER 2.16, POTASSIUM 3.4, BUN 24, GLUCOSE 161, CALCIUM 7.7, FERRITIN 600, AST 79, ALK PHOS 137, CRP 23.80, TOTAL PRTOEIN 5.8, ALBUMIN 2.4. BLOOD CULTURES ARE PENDING. AN ABG WAS OBTAINED AND REVEALED: PH 7.440, PC02 47, P02 60, HC03 31.9, 02 SAT 92, A-A GRADIENT 459, FI02 81. BLOOD CULTURES ARE PENDING. A CHEST XRAY WAS OBTAINED AND REVEALED: No change in appearance of the bilateral pneumonia. HE IS CURRENTLY RECEIVING NORMAL SALINE AT 75 ML/HR, REMDESIVIR 100MG IV DAILY, FORTAZ 1G IV Q12H, LEVAQUIN 750MG IV Q48H, ALBUTEROL NEBS QID, MUCOMYST IN NEBS QID, PULMICORT NEBS BID, ASCORBIC ACID 1500MG IV Q6H, LIPITOR 80MG PO HS, TESSALON PERLES 200MG PO TID, ZYRTEC 10MG PO DAILY, TUSSIONEX 5ML PO Q12H PRN, COLACE 100MG PO HS, LOVENOX 100MG BID, PEPCID 20MG PO BID, DIFLUCAN 100MG PO DAILY, ROBITUSSIN DM 10ML PO QID, IVERMECTIN- PHARMACY TO DOSE, MAGIC MOUTHWASH QID, MILK OF MAG BID PRN, MELATONIN 10MG PO HS, SOLU-MEDROL 125MG IV Q6H, SINGULAIR 10MG PO HS, PROTONIX 40MG PO DAILY, THIAMINE 200MG IV BID, ELIEZER-DUR 300MG PO BID, AND ZINC SULFATE 220MG PO DAILY. WE WILL CONTINUE WITH CURRENT PLAN OF CARE TODAY. OTHERWISE, WE PLAN TO FOLLOW UP WITH AM LABS AND CONTINUE TO MONITOR. TIME SPENT ON CLINICAL ASSESSMENT, REVIEWING LABS AND IMAGING, DECISION MAKING, AND DOCUMENTATION GREATER THAN 75 MINUTES. - Past Medical Family Social History Past Med/Fam/Surg Hx: No changes since H&P Allergies: Allergies No Known Drug Allergies Allergy (Verified 10/27/20 15:06) - Review of Systems ROS: No change since H&P - Vital Signs and I&O's Vital Signs: Temperature 97.8 F Pulse Rate [Left Radial] 90 Pulse Rate 91 Respiratory Rate 20 Blood Pressure [Left Arm] 175/75 Blood Pressure 118/73 O2 Sat by Pulse Oximetry 90 Intake and Output: Intake & Output 10/30/20 10/31/20 11/01/20 11/02/20 11:59 11:59 11:59 11:59 Intake Total 3966 / 3966 2528 / 2528 3091 / 3091 1300 / 1300 Output Total 700 / 700 3040 / 3040 750 / 750 Balance 3966 / 3966 1828 / 1828 51 / 51 550 / 550 - Physical Exam Oriented: Normal Eyes: Normal Ear: Normal Nose: Normal Throat: Normal Respiratory: Generalized, Diminished, Rales Cardiovascular: Normal : Normal Auscultation: Bowel Sounds: Normal Palpation: Normal Tenderness: Normal Skin: Normal Musculoskeletal: Normal Psychiatric: Normal Mood Description: Calm Affect: Normal Speech Pattern: Clear, Appropriate - Laboratory and Diagnostics Result Diagrams: 11/01/20 05:35 11/01/20 05:35 Labs: 10/27/20 15:29 Blood Blood Culture - Preliminary 10/27/20 15:24 Blood Blood Culture - Preliminary Laboratory WBC 14.9 X10^3/uL (3.6-10.0) H 11/01/20 05:35 RBC 5.31 X10^6/uL (4.7-6.0) 11/01/20 05:35 Hgb 14.6 g/dL (13.5-18.0) 11/01/20 05:35 Hct 45.4 % (42.0-54.0) 11/01/20 05:35 MCV 85.6 fL (80.0-100.0) 11/01/20 05:35 MCH 27.5 pg (27.0-34.0) 11/01/20 05:35 MCHC 32.1 g/dL (33.0-35.0) L 11/01/20 05:35 RDW 14.4 % (11.6-16.5) 11/01/20 05:35 Plt Count 301 X10^3/uL (150.0-450.0) 11/01/20 05:35 Plt Count Comment Adequate (ADEQUATE) 11/01/20 05:35 MPV 7.1 fL (7.4-11.0) L 11/01/20 05:35 Neut % (Auto) 93.4 % (42.0-75.0) H 11/01/20 05:35 Lymph % (Auto) 2.3 % (21.0-51.0) L 11/01/20 05:35 [place] % (Auto) 4.2 % (0.0-13.0) 11/01/20 05:35 Eos % (Auto) 0.0 % (0.9-2.9) L 11/01/20 05:35 Baso % (Auto) 0.1 % (0.2-1.0) L 11/01/20 05:35 Neut # (Auto) 13.9 x10^3/uL (2.2-4.8) H 11/01/20 05:35 Lymph # (Auto) 0.3 X10^3/uL (1.3-2.9) L 11/01/20 05:35 [place] # (Auto) 0.6 x10^3/uL (0.3-0.8) 11/01/20 05:35 Eos # (Auto) 0.0 x10^3/uL (0.0-0.2) 11/01/20 05:35 Baso # (Auto) 0.0 X10^3/uL (0.0-0.1) 11/01/20 05:35 Absolute Nucleated RBC 0.0 /100WBC 11/01/20 05:35 Total Counted 100 11/01/20 05:35 Neutrophils % (Manual) 94 % (39-76) H 11/01/20 05:35 Band Neutrophils % 1 % (0-10) 11/01/20 05:35 Lymphocytes % (Manual) 2 % (13-43) L 11/01/20 05:35 Monocytes % (Manual) 3 % (4-9) L 11/01/20 05:35 Eosinophils % (Manual) 1 % (0-6) 10/27/20 14:48 Plt Morphology Comment Normal (NORMAL) 11/01/20 05:35 RBC Morphology Normal (NORMAL) 11/01/20 05:35 D-Dimer 2.72 ug/ml (0.0-0.57) H* 11/01/20 05:35 Sample Site Lr 11/01/20 05:00 ABG pH 7.440 (7.35-7.45) 11/01/20 05:00 ABG pCO2 47.0 mmHg (35.0-45.0) H 11/01/20 05:00 ABG pO2 60.0 mmHg (80.0-100.0) L 11/01/20 05:00 ABG HCO3 31.9 mmol/L (22-26) H* 11/01/20 05:00 ABG O2 Saturation 92.0 % (90-100) 11/01/20 05:00 ABG Base Excess 6.7 mmol/L (-2.0-2.0) H 11/01/20 05:00 Ramesh Test Pos 11/01/20 05:00 A-a Gradient 459.0 mmHg 11/01/20 05:00 FiO2 81 11/01/20 05:00 Blood Gas Comments [facility] well 11/01/20 05:00 Sodium 140 mmol/L (136-145) 11/01/20 05:35 Corrected Sodium 142 mmol/L (136-145) 11/01/20 05:35 Potassium 3.2 mmol/L (3.5-5.1) L 11/01/20 05:35 Chloride 103 mmol/L (98-107) 11/01/20 05:35 Carbon Dioxide 29.1 mmol/L (21-32) 11/01/20 05:35 BUN 23 mg/dL (7-18) H 11/01/20 05:35 Creatinine 1.33 mg/dL (0.70-1.30) H 11/01/20 05:35 Est GFR (MDRD) Af Amer > 60 (>60) 11/01/20 05:35 Est GFR (MDRD) Non-Af 56 (>60) L 11/01/20 05:35 Glucose 164 mg/dL (65-99) H 11/01/20 05:35 Calcium 8.0 mg/dL (8.5-10.1) L 11/01/20 05:35 Corrected Calcium 9.2 mg/dL (8.5-10.1) 11/01/20 05:35 Magnesium 2.1 mg/dL (1.7-2.9) 10/30/20 05:30 Ferritin 543 ng/mL (26-388) H 11/01/20 05:35 Total Bilirubin 0.70 mg/dL (0.2-1.0) 11/01/20 05:35 AST 86 Units/L (15-37) H 11/01/20 05:35 ALT 66 Units/L (12-78) 11/01/20 05:35 Alkaline Phosphatase 192 Units/L (46-116) H 11/01/20 05:35 C-Reactive Protein 18.00 mg/L (0-3.0) H 11/01/20 05:35 B-Natriuretic Peptide 123 pg/mL (0-79) H 11/01/20 05:35 Total Protein 6.4 g/dL (6.4-8.2) 11/01/20 05:35 Albumin 2.5 g/dL (3.4-5.0) L 11/01/20 05:35 Globulin 3.9 g/dL (2.5-4.5) 11/01/20 05:35 Albumin/Globulin Ratio 0.6 Ratio (1.1-2.1) L 11/01/20 05:35 Influenza Type A (PCR) Negative (NEGATIVE) 10/27/20 15:21 Influenza Type B (PCR) Negative (NEGATIVE) 10/27/20 15:21 Blood Type O POSITIVE 10/28/20 12:30 - Plan (1) Pneumonia due to 2019 novel coronavirus Status: Acute Plan: SUPPLEMENTAL OXYGEN, NORMAL SALINE AT 75 ML/HR, REMDESIVIR 100MG IV DAILY, FORTAZ 1G IV Q12H, LEVAQUIN 750MG IV Q48H, ALBUTEROL NEBS QID, MUCOMYST IN NEBS QID, PULMICORT NEBS BID, ASCORBIC ACID 1500MG IV Q6H, LIPITOR 80MG PO HS, TESSALON PERLES 200MG PO TID, ZYRTEC 10MG PO DAILY, TUSSIONEX 5ML PO Q12H PRN, COLACE 100MG PO HS, LOVENOX 100MG BID, PEPCID 20MG PO BID, DIFLUCAN 100MG PO DAILY, ROBITUSSIN DM 10ML PO QID, IVERMECTIN- PHARMACY TO DOSE, MAGIC MOUTHWASH QID, MILK OF MAG BID PRN, MELATONIN 10MG PO HS, SOLU-MEDROL 125MG IV Q6H, SINGULAIR 10MG PO HS, PROTONIX 40MG PO DAILY, THIAMINE 200MG IV BID, ELIEZER- DUR 300MG PO BID, AND ZINC SULFATE 220MG PO DAILY. (2) Hypoxia Status: Acute
[2020-11-01] MEDS: SNACK - Diabetic Appropriate PO SCH (22:50)
[2020-11-02] MEDS: NS 1000 ML 1,000 ML IV SCH ×2 (01:12→21:00)
[2020-11-02] MEDS: SOLU-Medrol 125 MG VIAL IVP SCH ×4 (02:20→22:00)
[2020-11-02] MEDS: ASCORBIC ACID INJ MULTI-DOSE VIAL 1,500 MG in NS 50 ML IV 50 ML IV SCH ×4 (02:20→22:00)
[2020-11-02] MEDS ORDERED: FORTAZ or TAZICEF VIAL INJ ONE (03:52)
[2020-11-02] MEDS ORDERED: NS 100 ML IV 100 ML IV ONE ×2 (03:52→22:26)
[2020-11-02 05:10] LABS: ABG BASE EXCESS 7.5 mmol/L (-2.0-2.0)
[2020-11-02 05:11] LABS: ABG ALLEN TEST POSS; ABG HCO3 31.1 mmol/L (22-26)
[2020-11-02] MEDS: FORTAZ or TAZICEF VIAL INJ IV SCH ×3 (05:34→22:00)
[2020-11-02] MEDS: TESSALON PERLES PO SCH ×3 (05:35→22:00)
[2020-11-02 06:25] LABS: BASOPHILS % (AUTO) 0.1 % (0.2-1.0); HEMATOCRIT 42.7 % (42.0-54.0); LYMPHOCYTES # (AUTO) 0.3 X10^3/uL (1.3-2.9); MEAN CORPUSCULAR HEMOGLOBIN 27.6 pg (27.0-34.0); MEAN CORPUSCULAR HGB CONC 32.7 g/dL (33.0-35.0); MEAN CORPUSCULAR VOLUME 84.3 fL (80.0-100.0); MEAN PLATELET VOLUME 7.4 fL (7.4-11.0); MONOCYTES # (AUTO) 0.6 x10^3/uL (0.3-0.8); MONOCYTES % (AUTO) 3.9 % (0.0-13.0); NEUTROPHILS # (AUTO) 13.6 x10^3/uL (2.2-4.8); PLATELET COUNT 288 X10^3/uL (150.0-450.0); RED BLOOD COUNT 5.07 X10^6/uL (4.7-6.0); RED CELL DISTRIBUTION WIDTH 14.2 % (11.6-16.5); WHITE BLOOD COUNT 14.5 X10^3/uL (3.6-10.0)
[2020-11-02 06:41] LABS: ALANINE AMINOTRANSFERASE 71 Units/L (12-78); ALBUMIN 2.5 g/dL (3.4-5.0); ALKALINE PHOSPHATASE 202 Units/L (46-116); ASPARTATE AMINO TRANSFERASE 76 Units/L (15-37); BLOOD UREA NITROGEN 23 mg/dL (7-18); CALCIUM 7.8 mg/dL (8.5-10.1); CARBON DIOXIDE 27.2 mmol/L (21-32); CHLORIDE 101 mmol/L (98-107); COR NA(FOR HYPERGLY) 141 mmol/L (136-145); CREATININE 1.23 mg/dL (0.70-1.30); SODIUM 139 mmol/L (136-145); TOTAL PROTEIN 6.2 g/dL (6.4-8.2); eGFR NON BLACK RACES > 60 (>60)
[2020-11-02 07:10] LABS: BAND NEUTROPHILS % 1 % (0-10); PLATELET MORPHOLOGY COMMENT NORMAL (NORMAL)
--- NOTE | 2020-11-02 07:20 | RAD ---
HISTORYShortness of breathSTUDYChest AP [id number] size difficult to assess due to obscuration of the left hea rt border. Bilateral predominantly peripheral interstitial and ground-glass infiltrates are unchanged . There is improved aeration of the left lower lobe when compared to the prior examination. No pleura l effusions are identified. Bony thorax is unremarkable.IMPRESSIONNo change diffuse bilateral predomi nantly peripheral ground-glass and interstitial infiltratesImproved aeration of the left lower lobe w hen compared to the prior examinationElectronically signed by: THOMAS GRAY (Nov 02, 2020 07:19:14)
[2020-11-02] MEDS: PHENERGAN TAB 25 MG PO PRN ×2 (07:56→22:24)
[2020-11-02] MEDS: DIFLUCAN PO SCH (08:59)
[2020-11-02] MEDS: COZAAR PO SCH (08:59)
[2020-11-02] MEDS: LOVENOX INJ 100 MG SYR SC SCH ×2 (08:59→22:18)
[2020-11-02] MEDS: VITAMIN D3 125 mcg (5,000 UNITS) PO SCH (09:00)
[2020-11-02] MEDS: ZyrTEC TAB 10 MG PO SCH (09:00)
[2020-11-02] MEDS: ZINC SULFATE PO SCH (09:00)
[2020-11-02] MEDS: THIAMINE HCL INJ IVP SCH ×2 (09:01→22:13)
[2020-11-02] MEDS: MAXZIDE 37.5/25 MG PO SCH (09:01)
[2020-11-02] MEDS: PEPCID TAB 20 MG PO SCH ×2 (09:01→22:00)
[2020-11-02] MEDS: THEO-DUR TAB 300 MG 12-HR PO SCH ×2 (09:01→22:00)
[2020-11-02] MEDS: PROTONIX TAB 40 MG PO SCH (09:02)
[2020-11-02] MEDS: ROBITUSSIN DM PO SCH ×4 (09:02→22:17)
[2020-11-02] MEDS: MILK OF MAGNESIA PO SCH ×2 (09:21→22:00)
[2020-11-02] MEDS ORDERED: KLOR-CON PO PRN (09:44)
[2020-11-02] MEDS ORDERED: K-DUR TAB 20 MEQ PO PRN (09:44)
[2020-11-02] MEDS ORDERED: POTASSIUM CHLORIDE LIQ 20 MEQ UDC PO PRN (09:44)
[2020-11-02] MEDS ORDERED: POTASSIUM CHL 40 MEQ/NS 0.45% 500 ML IV PRN (09:44)
[2020-11-02] MEDS ORDERED: K-RIDER 10 MEQ/NS 100 ML 10 MEQ/100 ML BAG IV PRN (09:44)
[2020-11-02] MEDS ORDERED: MICRO K EXTEN CAP 10 MEQ PO PRN (09:44)
[2020-11-02] MEDS ORDERED: POTASSIUM CHL 60 MEQ/NS 0.45% 500 ML IV PRN (09:44)
[2020-11-02] MEDS: ACCUNEB 1.25 MG NEBULE NEB SCH ×4 (09:55→20:54)
[2020-11-02] MEDS: PULMICORT NEB TX 0.5 MG NEB SCH ×2 (09:55→20:54)
[2020-11-02] MEDS: MUCOMYST 20% 200 MG/ML NEB SCH ×4 (09:55→20:54)
[2020-11-02] MEDS: LEVAQUIN PREMIX IV 500 MG 500 MG/100 ML BAG IV SCH (10:15)
[2020-11-02] MEDS ORDERED: ZOFRAN INJ 4 MG VIAL 16 MG, ATIVAN INJ 2 MG VIAL 1 MG, DECADRON INJ 10 MG in NS 50 ML I... IV PRN (10:18)
[2020-11-02] MEDS: LEVSIN/MAALOX/LIDOC VISC PO SCH ×4 (11:10→22:19)
[2020-11-02] MEDS: SNACK - Diabetic Appropriate PO SCH (21:00)
--- NOTE | 2020-11-02 21:25 | PCM.PROG ---
Progress Note - Progress Note for Day of Date of Exam: 11/02/20 - Subjective Subjective: WAS ADMITTED FOR TREATMENT OF PNEUMONIA DUE TO COVID-19 AND HYPOXIA. TODAY, HE IS ALERT, LYING IN BED ON MORNING ROUNDS. HE CONTINUES WITH COMPLAINT OF A NON-PRODUCTIVE COUGH, SHORTNESS OF BREATH, AND GENERALIZED WEAKNESS, BUT CONTINUES TO REPORT IMPROVEMENT SINCE PREVIOUS DAY. HE DOES ADMIT TO SEVERE NAUSEA THIS MORNING. HE IS CURRENTLY ON HEATED HIGH FLOW OXYGEN, BUT HAS BEEN DRCREASED TO 70% FI02. HIS OXYGEN SATURATIONS HAVE BEEN 89-95% THIS MORNING AND THROUGHOUT THE NIGHT. HE HAS RECEIVED ONE UNIT OF CONVALESCENT PLASMA SINCE ADMISSION. ON EXAMINATION, HEART IS REGULAR IN RATE AND RHYTHM. BILATERAL LUNGS ARE NOTED WITH DIMINISHED LUNG SOUNDS THROUGHOUT. ABDOMEN IS ROUND, SOFT, AND NON-TENDER WITH NORMAL BOWEL SOUNDS NOTED IN ALL QUADRANTS. HIS VITALS THIS MORNING ARE: 97.6-88-28-89%-175/86. LABS WERE OBTAINED. ABNORMAL LAB VALUES INCLUDE THE FOLLOWING: WBC 14.5, D-DIMER 2.99, POTASSIUM 2.9, BUN 23, GLUCOSE 172, CALCIUM 7.8, FERRITIN 563, AST 76, ALK PHOS 202, CRP 12.10, BNP 110, TOTAL PROTEIN 6.2, ALBUMIN 2.5. BLOOD CULTURES ARE PENDING. AN ABG WAS OBTAINED AND REVEALED: PH 7.510, PC02 39, P02 61, HC03 31.1, 02 SAT 93, BASE EXCESS 7.5, A-A GRADIENT 396, FI02 71. BLOOD CULTURES ARE PENDING. A CHEST XRAY WAS OBTAINED AND REVEALED: No change diffuse bilateral predominantly peripheral ground-glass and interstitial infiltrates. Improved aeration of the left lower lobe when compared to the prior examination. HE IS CURRENTLY RECEIVING NORMAL SALINE AT 75 ML/HR, REMDESIVIR 100MG IV DAILY, FORTAZ 1G IV Q12H, LEVAQUIN 750MG IV Q48H, ALBUTEROL NEBS QID, MUCOMYST IN NEBS QID, PULMICORT NEBS BID, ASCORBIC ACID 1500MG IV Q6H, LIPITOR 80MG PO HS, TESSALON PERLES 200MG PO TID, ZYRTEC 10MG PO DAILY, TUSSIONEX 5ML PO Q12H PRN, COLACE 100MG PO HS, LOVENOX 100MG BID, PEPCID 20MG PO BID, DIFLUCAN 100MG PO DAILY, ROBITUSSIN DM 10ML PO QID, IVERMECTIN- PHARMACY TO DOSE, MAGIC MOUTHWASH QID, MILK OF MAG BID PRN, MELATONIN 10MG PO HS, SOLU-MEDROL 125MG IV Q6H, SINGULAIR 10MG PO HS, PROTONIX 40MG PO DAILY, THIAMINE 200MG IV BID, ELIEZER-DUR 300MG PO BID, AND ZINC SULFATE 220MG PO DAILY. WE WILL CONTINUE WITH CURRENT PLAN OF CARE TODAY AND ADD ZOFRAN COCKTAIL Q8H PRN AND GI COCKTAIL 15ML PO QID. OTHERWISE, WE PLAN TO FOLLOW UP WITH AM LABS AND CONTINUE TO MONITOR. TIME SPENT ON CLINICAL ASSESSMENT, REVIEWING LABS AND IMAGING, DECISION MAKING, AND DOCUMENTATION GREATER THAN 75 MINUTES. - Past Medical Family Social History Past Med/Fam/Surg Hx: No changes since H&P Allergies: Allergies No Known Drug Allergies Allergy (Verified 10/27/20 15:06) - Review of Systems ROS: No change since H&P - Vital Signs and I&O's Vital Signs: Temperature 98.6 F Pulse Rate [Left Radial] 86 Pulse Rate 85 Respiratory Rate 24 Blood Pressure [Left Arm] 163/77 Blood Pressure 118/73 O2 Sat by Pulse Oximetry 92 Intake and Output: Intake & Output 10/31/20 11/01/20 11/02/20 11/03/20 11:59 11:59 11:59 11:59 Intake Total 2528 / 2528 3091 / 3091 3580 / 3580 1220 / 1220 Output Total 700 / 700 3040 / 3040 2100 / 2100 1300 / 1300 Balance 1828 / 1828 51 / 51 1480 / 1480 -80 / -80 - Physical Exam Oriented: Normal Eyes: Normal Ear: Normal Nose: Normal Throat: Normal Respiratory: Generalized, Diminished Cardiovascular: Normal : Normal Auscultation: Bowel Sounds: Normal Palpation: Normal Tenderness: Normal Skin: Normal Musculoskeletal: Normal Psychiatric: Normal Mood Description: Calm Affect: Normal Speech Pattern: Clear, Appropriate - Laboratory and Diagnostics Result Diagrams: 11/02/20 04:44 11/02/20 20:54 Labs: 10/27/20 15:29 Blood Blood Culture - Final 10/27/20 15:24 Blood Blood Culture - Final Laboratory WBC 14.5 X10^3/uL (3.6-10.0) H 11/02/20 04:44 RBC 5.07 X10^6/uL (4.7-6.0) 11/02/20 04:44 Hgb 14.0 g/dL (13.5-18.0) 11/02/20 04:44 Hct 42.7 % (42.0-54.0) 11/02/20 04:44 MCV 84.3 fL (80.0-100.0) 11/02/20 04:44 MCH 27.6 pg (27.0-34.0) 11/02/20 04:44 MCHC 32.7 g/dL (33.0-35.0) L 11/02/20 04:44 RDW 14.2 % (11.6-16.5) 11/02/20 04:44 Plt Count 288 X10^3/uL (150.0-450.0) 11/02/20 04:44 Plt Count Comment Adequate (ADEQUATE) 11/02/20 04:44 MPV 7.4 fL (7.4-11.0) 11/02/20 04:44 Neut % (Auto) 94.0 % (42.0-75.0) H 11/02/20 04:44 Lymph % (Auto) 2.0 % (21.0-51.0) L 11/02/20 04:44 [place] % (Auto) 3.9 % (0.0-13.0) 11/02/20 04:44 Eos % (Auto) 0.0 % (0.9-2.9) L 11/02/20 04:44 Baso % (Auto) 0.1 % (0.2-1.0) L 11/02/20 04:44 Neut # (Auto) 13.6 x10^3/uL (2.2-4.8) H 11/02/20 04:44 Lymph # (Auto) 0.3 X10^3/uL (1.3-2.9) L 11/02/20 04:44 [place] # (Auto) 0.6 x10^3/uL (0.3-0.8) 11/02/20 04:44 Eos # (Auto) 0.0 x10^3/uL (0.0-0.2) 11/02/20 04:44 Baso # (Auto) 0.0 X10^3/uL (0.0-0.1) 11/02/20 04:44 Absolute Nucleated RBC 0.1 /100WBC 11/02/20 04:44 Total Counted 100 11/02/20 04:44 Neutrophils % (Manual) 93 % (39-76) H 11/02/20 04:44 Band Neutrophils % 1 % (0-10) 11/02/20 04:44 Lymphocytes % (Manual) 1 % (13-43) L 11/02/20 04:44 Monocytes % (Manual) 5 % (4-9) 11/02/20 04:44 Eosinophils % (Manual) 1 % (0-6) 10/27/20 14:48 Plt Morphology Comment Normal (NORMAL) 11/02/20 04:44 RBC Morphology Normal (NORMAL) 11/02/20 04:44 D-Dimer 2.99 ug/ml (0.0-0.57) H* 11/02/20 04:44 Sample Site L rad 11/02/20 05:00 ABG pH 7.510 (7.35-7.45) H 11/02/20 05:00 ABG pCO2 39.0 mmHg (35.0-45.0) 11/02/20 05:00 ABG pO2 61.0 mmHg (80.0-100.0) L 11/02/20 05:00 ABG HCO3 31.1 mmol/L (22-26) H* 11/02/20 05:00 ABG O2 Saturation 93.0 % (90-100) 11/02/20 05:00 ABG Base Excess 7.5 mmol/L (-2.0-2.0) H 11/02/20 05:00 Ramesh Test Poss 11/02/20 05:00 A-a Gradient 396.0 mmHg 11/02/20 05:00 FiO2 71.0 11/02/20 05:00 Blood Gas Comments [facility] well kb 11/02/20 05:00 Sodium 139 mmol/L (136-145) 11/02/20 04:44 Corrected Sodium 141 mmol/L (136-145) 11/02/20 04:44 Potassium 3.3 mmol/L (3.5-5.1) L 11/02/20 20:54 Chloride 101 mmol/L (98-107) 11/02/20 04:44 Carbon Dioxide 27.2 mmol/L (21-32) 11/02/20 04:44 BUN 23 mg/dL (7-18) H 11/02/20 04:44 Creatinine 1.23 mg/dL (0.70-1.30) 11/02/20 04:44 Est GFR (MDRD) Af Amer > 60 (>60) 11/02/20 04:44 Est GFR (MDRD) Non-Af > 60 (>60) 11/02/20 04:44 Glucose 172 mg/dL (65-99) H 11/02/20 04:44 Calcium 7.8 mg/dL (8.5-10.1) L 11/02/20 04:44 Corrected Calcium 9.0 mg/dL (8.5-10.1) 11/02/20 04:44 Magnesium 2.6 mg/dL (1.7-2.9) 11/02/20 04:44 Ferritin 563 ng/mL (26-388) H 11/02/20 04:44 Total Bilirubin 0.90 mg/dL (0.2-1.0) 11/02/20 04:44 AST 76 Units/L (15-37) H 11/02/20 04:44 ALT 71 Units/L (12-78) 11/02/20 04:44 Alkaline Phosphatase 202 Units/L (46-116) H 11/02/20 04:44 C-Reactive Protein 12.10 mg/L (0-3.0) H 11/02/20 04:44 B-Natriuretic Peptide 110 pg/mL (0-79) H 11/02/20 04:44 Total Protein 6.2 g/dL (6.4-8.2) L 11/02/20 04:44 Albumin 2.5 g/dL (3.4-5.0) L 11/02/20 04:44 Globulin 3.7 g/dL (2.5-4.5) 11/02/20 04:44 Albumin/Globulin Ratio 0.7 Ratio (1.1-2.1) L 11/02/20 04:44 Influenza Type A (PCR) Negative (NEGATIVE) 10/27/20 15:21 Influenza Type B (PCR) Negative (NEGATIVE) 10/27/20 15:21 Blood Type O POSITIVE 10/28/20 12:30 - Plan (1) Pneumonia due to 2019 novel coronavirus Status: Acute Plan: SUPPLEMENTAL OXYGEN, NORMAL SALINE AT 75 ML/HR, REMDESIVIR 100MG IV DAILY, FORTAZ 1G IV Q12H, LEVAQUIN 750MG IV Q48H, ALBUTEROL NEBS QID, MUCOMYST IN NEBS QID, PULMICORT NEBS BID, ASCORBIC ACID 1500MG IV Q6H, LIPITOR 80MG PO HS, TESSALON PERLES 200MG PO TID, ZYRTEC 10MG PO DAILY, TUSSIONEX 5ML PO Q12H PRN, COLACE 100MG PO HS, LOVENOX 100MG BID, PEPCID 20MG PO BID, DIFLUCAN 100MG PO DAILY, ROBITUSSIN DM 10ML PO QID, IVERMECTIN- PHARMACY TO DOSE, MAGIC MOUTHWASH QID, MILK OF MAG BID PRN, MELATONIN 10MG PO HS, SOLU-MEDROL 125MG IV Q6H, SINGULAIR 10MG PO HS, PROTONIX 40MG PO DAILY, THIAMINE 200MG IV BID, ELIEZER- DUR 300MG PO BID, AND ZINC SULFATE 220MG PO DAILY, ZOFRAN COCKTAIL Q8H PRN NAUSEA, GI COCKTAIL 15ML PO QID (2) Hypoxia Status: Acute
[2020-11-02] MEDS: MELATONIN PO SCH (22:00)
[2020-11-02] MEDS: LIPITOR TAB 80 MG PO SCH (22:00)
[2020-11-02] MEDS: SINGULAIR TAB 10 MG PO SCH (22:00)
[2020-11-03] MEDS ORDERED: POTASSIUM CHL 60 MEQ/NS 0.45% 500 ML IV PRN (01:28)
[2020-11-03] MEDS ORDERED: KLOR-CON PO PRN (01:28)
[2020-11-03] MEDS ORDERED: MAGNESIUM SULFATE 1 GRAM/100 mL PREMIX 1 GM/100 ML BAG IV PRN (01:28)
[2020-11-03] MEDS ORDERED: POTASSIUM CHLORIDE LIQ 20 MEQ UDC PO PRN (01:28)
[2020-11-03] MEDS ORDERED: K-RIDER 10 MEQ/NS 100 ML 10 MEQ/100 ML BAG IV PRN (01:28)
[2020-11-03] MEDS ORDERED: K-DUR TAB 20 MEQ PO PRN (01:28)
[2020-11-03] MEDS ORDERED: MICRO K EXTEN CAP 10 MEQ PO PRN (01:28)
[2020-11-03] MEDS ORDERED: POTASSIUM CHL 40 MEQ/NS 0.45% 500 ML IV PRN (01:28)
[2020-11-03] MEDS: ASCORBIC ACID INJ MULTI-DOSE VIAL 1,500 MG in NS 50 ML IV 50 ML IV SCH ×4 (03:01→21:18)
[2020-11-03] MEDS: SOLU-Medrol 125 MG VIAL IVP SCH ×4 (03:01→21:20)
[2020-11-03 05:32] LABS: ABG BASE EXCESS 9.1 mmol/L (-2.0-2.0)
[2020-11-03 05:33] LABS: ABG ALLEN TEST POS; ABG HCO3 32.7 mmol/L (22-26)
[2020-11-03] MEDS ORDERED: NS 100 ML IV 100 ML IV ONE (05:55)
[2020-11-03] MEDS: NS 1000 ML 1,000 ML IV SCH (06:01)
[2020-11-03] MEDS: TESSALON PERLES PO SCH ×3 (06:03→21:17)
[2020-11-03] MEDS: FORTAZ or TAZICEF VIAL INJ IV SCH ×3 (06:03→21:19)
[2020-11-03 06:23] LABS: BASOPHILS % (AUTO) 0.1 % (0.2-1.0); HEMATOCRIT 39.5 % (42.0-54.0); LYMPHOCYTES # (AUTO) 0.2 X10^3/uL (1.3-2.9); LYMPHOCYTES % (AUTO) 1.6 % (21.0-51.0); MEAN CORPUSCULAR HEMOGLOBIN 27.7 pg (27.0-34.0); MEAN CORPUSCULAR HGB CONC 32.9 g/dL (33.0-35.0); MEAN CORPUSCULAR VOLUME 84.4 fL (80.0-100.0); MEAN PLATELET VOLUME 7.8 fL (7.4-11.0); MONOCYTES # (AUTO) 0.4 x10^3/uL (0.3-0.8); MONOCYTES % (AUTO) 2.9 % (0.0-13.0); NEUTROPHILS # (AUTO) 12.7 x10^3/uL (2.2-4.8); NEUTROPHILS % (AUTO) 95.4 % (42.0-75.0); PLATELET COUNT 262 X10^3/uL (150.0-450.0); RED BLOOD COUNT 4.68 X10^6/uL (4.7-6.0); RED CELL DISTRIBUTION WIDTH 13.9 % (11.6-16.5); WHITE BLOOD COUNT 13.3 X10^3/uL (3.6-10.0)
[2020-11-03 06:33] LABS: ALANINE AMINOTRANSFERASE 59 Units/L (12-78); ALBUMIN 2.2 g/dL (3.4-5.0); ALKALINE PHOSPHATASE 166 Units/L (46-116); ASPARTATE AMINO TRANSFERASE 51 Units/L (15-37); BLOOD UREA NITROGEN 21 mg/dL (7-18); CALCIUM 7.5 mg/dL (8.5-10.1); CARBON DIOXIDE 29.1 mmol/L (21-32); CHLORIDE 103 mmol/L (98-107); COR CA(FOR HYPOALB) 8.9 mg/dL (8.5-10.1); COR NA(FOR HYPERGLY) 141 mmol/L (136-145); CREATININE 1.14 mg/dL (0.70-1.30); SODIUM 140 mmol/L (136-145); TOTAL PROTEIN 5.6 g/dL (6.4-8.2); eGFR NON BLACK RACES > 60 (>60)
[2020-11-03 07:20] LABS: PLATELET MORPHOLOGY COMMENT NORMAL (NORMAL)
--- NOTE | 2020-11-03 07:23 | RAD ---
HISTORYSOBSTUDYCHEST, 1 VIEWCOMPARISONOne day prior.TECHNIQUEAP view of the chestFINDINGSCardiac silhouette is mostly obscured. No significant change in bilateral airspace disease. No discernible pleural effusion or pneumothorax. Soft tissue attenuation limits evaluation.IMPRESSIONNo significant change.Electronically signed by: Collin Torres (Nov 03, 2020 07:20:56)
[2020-11-03] MEDS: ACCUNEB 1.25 MG NEBULE NEB SCH (08:09)
[2020-11-03] MEDS: MUCOMYST 20% 200 MG/ML NEB SCH ×3 (08:09→16:49)
[2020-11-03] MEDS: PULMICORT NEB TX 0.5 MG NEB SCH ×2 (08:09→20:05)
[2020-11-03] MEDS: LEVSIN/MAALOX/LIDOC VISC PO SCH ×4 (08:10→21:03)
[2020-11-03] MEDS: LEVAQUIN PREMIX IV 500 MG 500 MG/100 ML BAG IV SCH (09:00)
[2020-11-03] MEDS: PEPCID TAB 20 MG PO SCH ×2 (09:00→21:21)
[2020-11-03] MEDS: ROBITUSSIN DM PO SCH ×4 (09:00→21:17)
[2020-11-03] MEDS: VITAMIN D3 125 mcg (5,000 UNITS) PO SCH (09:00)
[2020-11-03] MEDS: ZyrTEC TAB 10 MG PO SCH (09:00)
[2020-11-03] MEDS: THEO-DUR TAB 300 MG 12-HR PO SCH ×2 (09:00→21:18)
[2020-11-03] MEDS: DIFLUCAN PO SCH (09:00)
[2020-11-03] MEDS: MAXZIDE 37.5/25 MG PO SCH (09:00)
[2020-11-03] MEDS: PROTONIX TAB 40 MG PO SCH (09:00)
[2020-11-03] MEDS: ZINC SULFATE PO SCH (09:00)
[2020-11-03] MEDS: COZAAR PO SCH (09:00)
[2020-11-03] MEDS: LOVENOX INJ 100 MG SYR SC SCH ×2 (09:05→21:05)
[2020-11-03] MEDS: MILK OF MAGNESIA PO SCH (11:05)
[2020-11-03] MEDS: BROVANA IN SCH ×2 (11:27→20:00)
[2020-11-03] MEDS ORDERED: MUCOMYST 20% 200 MG/ML NEB SCH (11:30)
--- NOTE | 2020-11-03 11:41 | PCM.PROG ---
Progress Note - Progress Note for Day of Date of Exam: 11/03/20 - Subjective Subjective: WAS ADMITTED FOR TREATMENT OF PNEUMONIA DUE TO COVID-19 AND HYPOXIA. TODAY, HE IS ALERT, LYING IN BED ON MORNING ROUNDS. HE CONTINUES WITH COMPLAINT OF A NON-PRODUCTIVE COUGH, SHORTNESS OF BREATH, AND GENERALIZED WEAKNESS. HE REPORTS THAT SHORTNESS OF BREATH IS SLIGHTLY WORSE TODAY. NAUSEA HAS SLIGHTLY IMPROVED. HE IS CURRENTLY ON HEATED HIGH FLOW OXYGEN. HIS FI02 WAS INCREASED TO 80% THROUGHOUT THE NIGHT DUE TO HIS SATURATIONS DROPPING INTO THE LOW 80s. HIS OXYGEN SATURATIONS HAVE BEEN 87-90% SINCE INCREASING IT. HE HAS RECEIVED ONE UNIT OF CONVALESCENT PLASMA SINCE ADMISSION. ON EXAMINATION, HEART IS REGULAR IN RATE AND RHYTHM. BILATERAL LUNGS ARE NOTED WITH DIMINISHED LUNG SOUNDS THROUGHOUT. ABDOMEN IS ROUND, SOFT, AND NON-TENDER WITH NORMAL BOWEL SOUNDS NOTED IN ALL QUADRANTS. HIS VITALS THIS MORNING ARE: 97.8-78-26-90%-150/71. LABS WERE OBTAINED. ABNORMAL LAB VALUES INCLUDE THE FOLLOWING: WBC 13.3, RBC 4.68, HGB 13.0, HCT 39.5, D-DIMER 3.22, POTASSIUM 2.9, BUN 21, GLUCOSE 161, CALCIUM 7.5, AST 51, ALK PHOS 166, CRP 6.60, TOTAL PROTEIN 5.6, ALBUMIN 2.2. BLOOD CULTURES ARE PENDING. AN ABG WAS OBTAINED AND REVEALED: PH 7.510, PC02 39, P02 61, HC03 31.1, 02 SAT 93, BASE EXCESS 7.5, A-A GRADIENT 396, FI02 71. A CHEST XRAY WAS OBTAINED AND REVEALED: Cardiac silhouette is mostly obscured. No significant change in bilateral airspace disease. No discernible pleural effusion or pneumothorax. Soft tissue attenuation limits evaluation. HE IS CURRENTLY RECEIVING NORMAL SALINE AT 75 ML/HR, REMDESIVIR 100MG IV DAILY, FORTAZ 1G IV Q12H, LEVAQUIN 750MG IV Q48H, ALBUTEROL NEBS QID, MUCOMYST IN NEBS QID, PULMICORT NEBS BID, ASCORBIC ACID 1500MG IV Q6H, LIPITOR 80MG PO HS, TESSALON PERLES 200MG PO TID, ZYRTEC 10MG PO DAILY, TUSSIONEX 5ML PO Q12H PRN, COLACE 100MG PO HS, LOVENOX 100MG BID, PEPCID 20MG PO BID, DIFLUCAN 100MG PO DAILY, ROBITUSSIN DM 10ML PO QID, IVERMECTIN- PHARMACY TO DOSE, ZOFRAN COCKTAIL Q8H PRN, GI COCKTAIL 15ML PO QID, MAGIC MOUTHWASH QID, MILK OF MAG BID PRN, MELATONIN 10MG PO HS, SOLU-MEDROL 125MG IV Q6H, SINGULAIR 10MG PO HS, PROTONIX 40MG PO DAILY, THIAMINE 200MG IV BID, ELIEZER-DUR 300MG PO BID, AND ZINC SULFATE 220MG PO DAILY. TODAY, WE WILL BROVANA TX, KLONOPIN 0.5G PO BID, AND INCREASE ALBUTEROL DOSAGE. OTHERWISE, WE PLAN TO FOLLOW UP WITH AM LABS AND CONTINUE TO MONITOR. TIME SPENT ON CLINICAL ASSESSMENT, REVIEWING LABS AND IMAGING, DECISION MAKING, AND DOCUMENTATION GREATER THAN 75 MINUTES. - Past Medical Family Social History Past Med/Fam/Surg Hx: No changes since H&P Allergies: Allergies No Known Drug Allergies Allergy (Verified 10/27/20 15:06) - Review of Systems ROS: No change since H&P - Vital Signs and I&O's Vital Signs: Temperature 97.8 F Pulse Rate [Left Radial] 78 Pulse Rate 78 Respiratory Rate 26 Blood Pressure [Left Arm] 150/71 Blood Pressure 118/73 O2 Sat by Pulse Oximetry 90 Intake and Output: Intake & Output 10/31/20 11/01/20 11/02/20 11/03/20 11:59 11:59 11:59 11:59 Intake Total 2528 / 2528 3091 / 3091 3580 / 3580 3245 / 3245 Output Total 700 / 700 3040 / 3040 2100 / 2100 2500 / 2500 Balance 1828 / 1828 51 / 51 1480 / 1480 745 / 745 - Physical Exam Oriented: Normal Eyes: Normal Ear: Normal Nose: Normal Throat: Normal Respiratory: Generalized, Diminished Cardiovascular: Normal : Normal Auscultation: Bowel Sounds: Normal Palpation: Normal Tenderness: Normal Skin: Normal Musculoskeletal: Normal Psychiatric: Normal Mood Description: Calm Affect: Normal Speech Pattern: Clear, Appropriate - Laboratory and Diagnostics Result Diagrams: 11/03/20 05:20 11/03/20 08:54 Labs: 10/27/20 15:29 Blood Blood Culture - Final 10/27/20 15:24 Blood Blood Culture - Final Laboratory WBC 13.3 X10^3/uL (3.6-10.0) H 11/03/20 05:20 RBC 4.68 X10^6/uL (4.7-6.0) L 11/03/20 05:20 Hgb 13.0 g/dL (13.5-18.0) L 11/03/20 05:20 Hct 39.5 % (42.0-54.0) L 11/03/20 05:20 MCV 84.4 fL (80.0-100.0) 11/03/20 05:20 MCH 27.7 pg (27.0-34.0) 11/03/20 05:20 MCHC 32.9 g/dL (33.0-35.0) L 11/03/20 05:20 RDW 13.9 % (11.6-16.5) 11/03/20 05:20 Plt Count 262 X10^3/uL (150.0-450.0) 11/03/20 05:20 Plt Count Comment Adequate (ADEQUATE) 11/03/20 05:20 MPV 7.8 fL (7.4-11.0) 11/03/20 05:20 Neut % (Auto) 95.4 % (42.0-75.0) H 11/03/20 05:20 Lymph % (Auto) 1.6 % (21.0-51.0) L 11/03/20 05:20 Sanders % (Auto) 2.9 % (0.0-13.0) 11/03/20 05:20 Eos % (Auto) 0.0 % (0.9-2.9) L 11/03/20 05:20 Baso % (Auto) 0.1 % (0.2-1.0) L 11/03/20 05:20 Neut # (Auto) 12.7 x10^3/uL (2.2-4.8) H 11/03/20 05:20 Lymph # (Auto) 0.2 X10^3/uL (1.3-2.9) L 11/03/20 05:20 Sanders # (Auto) 0.4 x10^3/uL (0.3-0.8) 11/03/20 05:20 Eos # (Auto) 0.0 x10^3/uL (0.0-0.2) 11/03/20 05:20 Baso # (Auto) 0.0 X10^3/uL (0.0-0.1) 11/03/20 05:20 Absolute Nucleated RBC 0.0 /100WBC 11/03/20 05:20 Total Counted 100 11/03/20 05:20 Neutrophils % (Manual) 95 % (39-76) H 11/03/20 05:20 Band Neutrophils % 1 % (0-10) 11/02/20 04:44 Lymphocytes % (Manual) 1 % (13-43) L 11/03/20 05:20 Monocytes % (Manual) 4 % (4-9) 11/03/20 05:20 Eosinophils % (Manual) 1 % (0-6) 10/27/20 14:48 Plt Morphology Comment Normal (NORMAL) 11/03/20 05:20 RBC Morphology Normal (NORMAL) 11/03/20 05:20 D-Dimer 3.22 ug/ml (0.0-0.57) H* 11/03/20 05:20 Sample Site Rr 11/03/20 05:20 ABG pH 7.520 (7.35-7.45) H 11/03/20 05:20 ABG pCO2 40.0 mmHg (35.0-45.0) 11/03/20 05:20 ABG pO2 61.0 mmHg (80.0-100.0) L 11/03/20 05:20 ABG HCO3 32.7 mmol/L (22-26) H* 11/03/20 05:20 ABG O2 Saturation 94.0 % (90-100) 11/03/20 05:20 ABG Base Excess 9.1 mmol/L (-2.0-2.0) H 11/03/20 05:20 Ramesh Test Pos 11/03/20 05:20 A-a Gradient 459.0 mmHg 11/03/20 05:20 FiO2 80.0 11/03/20 05:20 Blood Gas Comments [facility] rosendo, 11/03/20 05:20 Sodium 140 mmol/L (136-145) 11/03/20 05:20 Corrected Sodium 141 mmol/L (136-145) 11/03/20 05:20 Potassium 3.3 mmol/L (3.5-5.1) L 11/03/20 08:54 Chloride 103 mmol/L (98-107) 11/03/20 05:20 Carbon Dioxide 29.1 mmol/L (21-32) 11/03/20 05:20 BUN 21 mg/dL (7-18) H 11/03/20 05:20 Creatinine 1.14 mg/dL (0.70-1.30) 11/03/20 05:20 Est GFR (MDRD) Af Amer > 60 (>60) 11/03/20 05:20 Est GFR (MDRD) Non-Af > 60 (>60) 11/03/20 05:20 Glucose 161 mg/dL (65-99) H 11/03/20 05:20 Calcium 7.5 mg/dL (8.5-10.1) L 11/03/20 05:20 Corrected Calcium 8.9 mg/dL (8.5-10.1) 11/03/20 05:20 Magnesium 2.4 mg/dL (1.7-2.9) 11/03/20 01:51 Ferritin 563 ng/mL (26-388) H 11/02/20 04:44 Total Bilirubin 0.90 mg/dL (0.2-1.0) 11/03/20 05:20 AST 51 Units/L (15-37) H 11/03/20 05:20 ALT 59 Units/L (12-78) 11/03/20 05:20 Alkaline Phosphatase 166 Units/L (46-116) H 11/03/20 05:20 C-Reactive Protein 6.60 mg/L (0-3.0) H 11/03/20 05:20 B-Natriuretic Peptide 110 pg/mL (0-79) H 11/02/20 04:44 Total Protein 5.6 g/dL (6.4-8.2) L 11/03/20 05:20 Albumin 2.2 g/dL (3.4-5.0) L 11/03/20 05:20 Globulin 3.4 g/dL (2.5-4.5) 11/03/20 05:20 Albumin/Globulin Ratio 0.6 Ratio (1.1-2.1) L 11/03/20 05:20 Influenza Type A (PCR) Negative (NEGATIVE) 10/27/20 15:21 Influenza Type B (PCR) Negative (NEGATIVE) 10/27/20 15:21 Blood Type O POSITIVE 10/28/20 12:30 - Plan (1) Pneumonia due to 2019 novel coronavirus Status: Acute Plan: SUPPLEMENTAL OXYGEN, NORMAL SALINE AT 75 ML/HR, REMDESIVIR 100MG IV DAILY, FORTAZ 1G IV Q12H, LEVAQUIN 750MG IV Q48H, ALBUTEROL NEBS QID, MUCOMYST IN NEBS QID, BROVANA NEBS BID, PULMICORT NEBS BID, KLONOPIN 0.5MG PO BID, ASCORBIC ACID 1500MG IV Q6H, LIPITOR 80MG PO HS, TESSALON PERLES 200MG PO TID, ZYRTEC 10MG PO DAILY, TUSSIONEX 5ML PO Q12H PRN, COLACE 100MG PO HS, LOVENOX 100MG BID, PEPCID 20MG PO BID, DIFLUCAN 100MG PO DAILY, ROBITUSSIN DM 10ML PO QID, IVERMECTIN- PHARMACY TO DOSE, MAGIC MOUTHWASH QID, MILK OF MAG BID PRN, MELATONIN 10MG PO HS, SOLU-MEDROL 125MG IV Q6H, SINGULAIR 10MG PO HS, PROTONIX 40MG PO DAILY, THIAMINE 200MG IV BID, ELIEZER-DUR 300MG PO BID, AND ZINC SULFATE 220MG PO DAILY, ZOFRAN COCKTAIL Q8H PRN NAUSEA, GI COCKTAIL 15ML PO QID (2) Hypoxia Status: Acute
[2020-11-03] MEDS: NS + KCL 20 MEQ/L 1,000 ML IV SCH (12:21)
[2020-11-03] MEDS: THIAMINE HCL INJ IVP SCH (12:22)
[2020-11-03] MEDS: PROVENTIL NEB TX 0.083% 2.5MG/ 3ML NEB SCH ×2 (13:57→16:49)
[2020-11-03] MEDS: KLONOPIN TAB 0.5 MG PO SCH ×2 (15:13→21:20)
[2020-11-03] MEDS: SNACK - Diabetic Appropriate PO SCH (21:15)
[2020-11-03] MEDS: MELATONIN PO SCH (21:16)
[2020-11-03] MEDS: SINGULAIR TAB 10 MG PO SCH (21:16)
[2020-11-03] MEDS: LIPITOR TAB 80 MG PO SCH (21:32)
[2020-11-04] MEDS: MILK OF MAGNESIA PO SCH ×3 (00:01→20:39)
[2020-11-04] MEDS: MUCOMYST 20% 200 MG/ML NEB SCH ×4 (00:30→18:55)
[2020-11-04] MEDS: PROVENTIL NEB TX 0.083% 2.5MG/ 3ML NEB SCH ×4 (00:30→18:55)
[2020-11-04] MEDS: NS + KCL 20 MEQ/L 1,000 ML IV SCH ×2 (01:30→11:22)
[2020-11-04] MEDS: SOLU-Medrol 125 MG VIAL IVP SCH ×4 (03:02→20:40)
[2020-11-04] MEDS: ASCORBIC ACID INJ MULTI-DOSE VIAL 1,500 MG in NS 50 ML IV 50 ML IV SCH ×4 (03:02→20:35)
[2020-11-04 04:42] LABS: ABG BASE EXCESS 7.5 mmol/L (-2.0-2.0)
[2020-11-04 04:43] LABS: ABG ALLEN TEST POS; ABG HCO3 31.1 mmol/L (22-26)
[2020-11-04] MEDS: TESSALON PERLES PO SCH ×3 (05:17→22:16)
[2020-11-04] MEDS: FORTAZ or TAZICEF VIAL INJ IV SCH ×3 (05:17→22:16)
[2020-11-04 06:46] LABS: BASOPHILS % (AUTO) 0.2 % (0.2-1.0); HEMATOCRIT 42.6 % (42.0-54.0); HEMOGLOBIN 13.9 g/dL (13.5-18.0); LYMPHOCYTES # (AUTO) 0.2 X10^3/uL (1.3-2.9); LYMPHOCYTES % (AUTO) 1.3 % (21.0-51.0); MEAN CORPUSCULAR HEMOGLOBIN 27.6 pg (27.0-34.0); MEAN CORPUSCULAR HGB CONC 32.6 g/dL (33.0-35.0); MEAN CORPUSCULAR VOLUME 84.5 fL (80.0-100.0); MEAN PLATELET VOLUME 7.7 fL (7.4-11.0); MONOCYTES # (AUTO) 0.4 x10^3/uL (0.3-0.8); MONOCYTES % (AUTO) 2.5 % (0.0-13.0); NEUTROPHILS # (AUTO) 15.8 x10^3/uL (2.2-4.8); PLATELET COUNT 293 X10^3/uL (150.0-450.0); RED BLOOD COUNT 5.04 X10^6/uL (4.7-6.0); RED CELL DISTRIBUTION WIDTH 13.8 % (11.6-16.5); WHITE BLOOD COUNT 16.4 X10^3/uL (3.6-10.0)
--- NOTE | 2020-11-04 06:52 | RAD ---
HISTORYSOBSTUDYCHEST, 1 VIEWCOMPARISONOne day prior.TECHNIQUEAP view of the chestFINDINGSThe cardiac silhouette is partially obscured. Mediastinal contours appear stable. No significant change in bilateral airspace and interstitial opacities. No discernible pneumothorax. Cannot exclude small pleural effusions. Soft tissue attenuation limits evaluation.IMPRESSIONNo significant change.Electronically signed by: Collin Torres (Nov 04, 2020 06:50:49)
[2020-11-04 07:04] LABS: ALANINE AMINOTRANSFERASE 59 Units/L (12-78); ALBUMIN 2.5 g/dL (3.4-5.0); ALKALINE PHOSPHATASE 183 Units/L (46-116); ASPARTATE AMINO TRANSFERASE 44 Units/L (15-37); BLOOD UREA NITROGEN 22 mg/dL (7-18); CALCIUM 7.7 mg/dL (8.5-10.1); CARBON DIOXIDE 28.8 mmol/L (21-32); CHLORIDE 104 mmol/L (98-107); COR CA(FOR HYPOALB) 8.9 mg/dL (8.5-10.1); COR NA(FOR HYPERGLY) 143 mmol/L (136-145); SODIUM 141 mmol/L (136-145); TOTAL PROTEIN 6.2 g/dL (6.4-8.2); eGFR NON BLACK RACES > 60 (>60)
[2020-11-04 07:42] LABS: BAND NEUTROPHILS % 2 % (0-10); PLATELET MORPHOLOGY COMMENT NORMAL (NORMAL)
[2020-11-04] MEDS: LEVSIN/MAALOX/LIDOC VISC PO SCH ×4 (09:56→20:32)
[2020-11-04] MEDS: DIFLUCAN PO SCH (09:57)
[2020-11-04] MEDS: COZAAR PO SCH (09:57)
[2020-11-04] MEDS: LOVENOX INJ 100 MG SYR SC SCH ×2 (09:58→21:21)
[2020-11-04] MEDS: KLONOPIN TAB 0.5 MG PO SCH ×2 (09:58→20:36)
[2020-11-04] MEDS: LEVAQUIN PREMIX IV 500 MG 500 MG/100 ML BAG IV SCH (09:58)
[2020-11-04] MEDS: MAXZIDE 37.5/25 MG PO SCH (09:59)
[2020-11-04] MEDS: PROTONIX TAB 40 MG PO SCH (10:00)
[2020-11-04] MEDS: PEPCID TAB 20 MG PO SCH ×2 (10:00→20:40)
[2020-11-04] MEDS: ROBITUSSIN DM PO SCH ×4 (10:00→20:41)
[2020-11-04] MEDS: THEO-DUR TAB 300 MG 12-HR PO SCH ×2 (10:00→20:37)
[2020-11-04] MEDS: VITAMIN D3 125 mcg (5,000 UNITS) PO SCH (10:01)
[2020-11-04] MEDS: ZINC SULFATE PO SCH (10:50)
[2020-11-04] MEDS: ZyrTEC TAB 10 MG PO SCH (10:50)
[2020-11-04 10:59] LABS: ABG ALLEN TEST POS; ABG BASE EXCESS 5.2 mmol/L (-2.0-2.0)
[2020-11-04] MEDS ORDERED: DECADRON IV PRN (11:00)
[2020-11-04] MEDS ORDERED: ZOFRAN IV PRN (11:00)
[2020-11-04] MEDS ORDERED: NS IV PRN (11:00)
[2020-11-04] MEDS: FLONASE NASAL SPRAY ENOSTRIL SCH (11:22)
[2020-11-04] MEDS ORDERED: NS 100 ML IV + SPIKE MINIBAG* 100 ML IV ONE (11:38)
[2020-11-04] MEDS: BROVANA IN SCH ×2 (11:58→20:40)
[2020-11-04] MEDS: PULMICORT NEB TX 0.5 MG NEB SCH ×2 (11:58→20:40)
--- NOTE | 2020-11-04 12:02 | PCM.PROG ---
Progress Note - Progress Note for Day of Date of Exam: 11/04/20 - Subjective Subjective: WAS ADMITTED FOR TREATMENT OF PNEUMONIA DUE TO COVID-19 AND HYPOXIA. TODAY, HE IS ALERT, LYING IN BED ON MORNING ROUNDS. HE CONTINUES WITH COMPLAINT OF A NON-PRODUCTIVE COUGH, SHORTNESS OF BREATH, AND GENERALIZED WEAKNESS. HE REPORTS THAT SHORTNESS OF BREATH IS SLIGHTLY WORSE TODAY. HE IS CURRENTLY ON HEATED HIGH FLOW OXYGEN. HIS FI02 WAS INCREASED TO 92% THIS MORNING DUE TO HYPOXIA AFTER A COUGHING SPELL. HIS SATURATIONS REPORTEDLY FELL TO THE LOW 80s. HE REPORTS FEELING BETTER AFTER OXYGEN WAS INCREASED AND HIS SATURATIONS ARE NOW 90-93%. HE HAS RECEIVED ONE UNIT OF CONVALESCENT PLASMA SINCE ADMISSION. ON EXAMINATION, HEART IS REGULAR IN RATE AND RHYTHM. BILATERAL LUNGS ARE NOTED WITH DIMINISHED LUNG SOUNDS THROUGHOUT. ABDOMEN IS ROUND, SOFT, AND NON-TENDER WITH NORMAL BOWEL SOUNDS NOTED IN ALL QUADRANTS. HIS VITALS THIS MORNING ARE: 98.1-80-28-91%-162/82. LABS WERE OBTAINED. ABNORMAL LAB VALUES INCLUDE THE FOLLOWING: WBC 16.4, D-DIMER 3.19, POTASSIUM 3.2, BUN 22, GLUCOSE 173, CALCIUM 7.7, AST 44, ALK PHOS 183, CRP 4.80, TOTAL PROTEIN 6.2, ALBUMIN 2.5. BLOOD CULTURES ARE PENDING. AN ABG WAS OBTAINED AT APPROXIMATELY 04:35 AND REVEALED: PH 7.510, PC02 39, P02 40, HC03 31.1, 02 SAT 81, BASE EXCESS 7.5, A-A GRADIENT 453, FI02 76. THIS WAS JUST AFTER PATIENT HAD A COUGHING SPELL. ABG WAS REPEATED AT APROXIMATELY 10:50 AFTER HIS OXYGEN HAD BEEN INCREASED AND REVEALED: PH 7.480, PC02 39, P02 70, HC03 29.0, 02 SAT 95, BASE EXCESS 5.2, FI02 92. A CHEST XRAY WAS OBTAINED AND REVEALED: Cardiac silhouette is mostly obscured. No significant change in bilateral airspace disease. No discernible pleural effusion or pneumothorax. Soft tissue attenuation limits evaluation. HE IS CURRENTLY RECEIVING NORMAL SALINE AT 75 ML/HR, REMDESIVIR 100MG IV DAILY, FORTAZ 1G IV Q12H, LEVAQUIN 750MG IV Q48H, ALBUTEROL NEBS Q6H, BROVANA NEB TX BID, MUCOMYST IN NEBS Q6H, PULMICORT NEBS BID, KLONOPIN 0.5MG PO BID, ASCORBIC ACID 1500MG IV Q6H, LIPITOR 80MG PO HS, TESSALON PERLES 200MG PO TID, ZYRTEC 10MG PO DAILY, TUSSIONEX 5ML PO Q12H PRN, COLACE 100MG PO HS, LOVENOX 100MG BID, PEPCID 20MG PO BID, DIFLUCAN 100MG PO DAILY, ROBITUSSIN DM 10ML PO QID, IVERMECTIN- PHARMACY TO DOSE, ZOFRAN COCKTAIL Q8H PRN, GI COCKTAIL 15ML PO QID, MAGIC MOUTHWASH QID, MILK OF MAG BID PRN, MELATONIN 10MG PO HS, SOLU-MEDROL 125MG IV Q6H, SINGULAIR 10MG PO HS, PROTONIX 40MG PO DAILY, THIAMINE 200MG IV BID, ELIEZER-DUR 300MG PO BID, AND ZINC SULFATE 220MG PO DAILY. TODAY, WE WILL ADD FLONASE 2 SPRAYS BID, SIMETHICONE 80MG PO TID, AND SCOPOLOMINE AT BEDTIME. OTHERWISE, WE PLAN TO FOLLOW UP WITH AM LABS AND CONTINUE TO MONITOR. TIME SPENT ON CLINICAL ASSESSMENT, REVIEWING LABS AND IMAGING, DECISION MAKING, AND DOCUMENTATION GREATER THAN 75 MINUTES. - Past Medical Family Social History Past Med/Fam/Surg Hx: No changes since H&P Allergies: Allergies No Known Drug Allergies Allergy (Verified 10/27/20 15:06) - Review of Systems ROS: No change since H&P - Vital Signs and I&O's Vital Signs: Temperature 98.1 F Pulse Rate [Left Radial] 80 Pulse Rate 80 Respiratory Rate 18 Blood Pressure [Left Arm] 162/82 Blood Pressure 118/73 O2 Sat by Pulse Oximetry 91 Intake and Output: Intake & Output 11/02/20 11/03/20 11/04/20 11/05/20 11:59 11:59 11:59 11:59 Intake Total 3580 / 3580 3245 / 3245 2720 / 2720 Output Total 2099 / 2100 2500 / 2500 1900 / 1900 Balance 1480 / 1480 745 / 745 820 / 820 - Physical Exam Oriented: Normal Eyes: Normal Ear: Normal Nose: Normal Throat: Normal Respiratory: Generalized, Diminished Cardiovascular: Normal : Normal Auscultation: Bowel Sounds: Normal Palpation: Normal Tenderness: Normal Skin: Normal Musculoskeletal: Normal Psychiatric: Normal Mood Description: Calm Affect: Normal Speech Pattern: Clear, Appropriate - Laboratory and Diagnostics Result Diagrams: 11/04/20 05:17 11/04/20 05:17 Labs: 10/27/20 15:29 Blood Blood Culture - Final 10/27/20 15:24 Blood Blood Culture - Final Laboratory WBC 16.4 X10^3/uL (3.6-10.0) H 11/04/20 05:17 RBC 5.04 X10^6/uL (4.7-6.0) 11/04/20 05:17 Hgb 13.9 g/dL (13.5-18.0) 11/04/20 05:17 Hct 42.6 % (42.0-54.0) 11/04/20 05:17 MCV 84.5 fL (80.0-100.0) 11/04/20 05:17 MCH 27.6 pg (27.0-34.0) 11/04/20 05:17 MCHC 32.6 g/dL (33.0-35.0) L 11/04/20 05:17 RDW 13.8 % (11.6-16.5) 11/04/20 05:17 Plt Count 293 X10^3/uL (150.0-450.0) 11/04/20 05:17 Plt Count Comment Adequate (ADEQUATE) 11/04/20 05:17 MPV 7.7 fL (7.4-11.0) 11/04/20 05:17 Neut % (Auto) 96.0 % (42.0-75.0) H 11/04/20 05:17 Lymph % (Auto) 1.3 % (21.0-51.0) L 11/04/20 05:17 Daniels % (Auto) 2.5 % (0.0-13.0) 11/04/20 05:17 Eos % (Auto) 0.0 % (0.9-2.9) L 11/04/20 05:17 Baso % (Auto) 0.2 % (0.2-1.0) 11/04/20 05:17 Neut # (Auto) 15.8 x10^3/uL (2.2-4.8) H 11/04/20 05:17 Lymph # (Auto) 0.2 X10^3/uL (1.3-2.9) L 11/04/20 05:17 Daniels # (Auto) 0.4 x10^3/uL (0.3-0.8) 11/04/20 05:17 Eos # (Auto) 0.0 x10^3/uL (0.0-0.2) 11/04/20 05:17 Baso # (Auto) 0.0 X10^3/uL (0.0-0.1) 11/04/20 05:17 Absolute Nucleated RBC 0.1 /100WBC 11/04/20 05:17 Total Counted 100 11/04/20 05:17 Neutrophils % (Manual) 93 % (39-76) H 11/04/20 05:17 Band Neutrophils % 2 % (0-10) 11/04/20 05:17 Lymphocytes % (Manual) 3 % (13-43) L 11/04/20 05:17 Monocytes % (Manual) 2 % (4-9) L 11/04/20 05:17 Eosinophils % (Manual) 1 % (0-6) 10/27/20 14:48 Plt Morphology Comment Normal (NORMAL) 11/04/20 05:17 RBC Morphology Normal (NORMAL) 11/04/20 05:17 D-Dimer 3.19 ug/ml (0.0-0.57) H* 11/04/20 05:17 Sample Site Rrad 11/04/20 10:52 ABG pH 7.480 (7.35-7.45) H 11/04/20 10:52 ABG pCO2 39.0 mmHg (35.0-45.0) 11/04/20 10:52 ABG pO2 70.0 mmHg (80.0-100.0) L 11/04/20 10:52 ABG HCO3 29.0 mmol/L (22-26) H 11/04/20 10:52 ABG O2 Saturation 95.0 % (90-100) 11/04/20 10:52 ABG Base Excess 5.2 mmol/L (-2.0-2.0) H 11/04/20 10:52 Ramesh Test Pos 11/04/20 10:52 A-a Gradient 537.0 mmHg 11/04/20 10:52 FiO2 92.0 11/04/20 10:52 Blood Gas Comments Pt jesus well elj 11/04/20 10:52 Sodium 141 mmol/L (136-145) 11/04/20 05:17 Corrected Sodium 143 mmol/L (136-145) 11/04/20 05:17 Potassium 3.2 mmol/L (3.5-5.1) L 11/04/20 05:17 Chloride 104 mmol/L (98-107) 11/04/20 05:17 Carbon Dioxide 28.8 mmol/L (21-32) 11/04/20 05:17 BUN 22 mg/dL (7-18) H 11/04/20 05:17 Creatinine 1.20 mg/dL (0.70-1.30) 11/04/20 05:17 Est GFR (MDRD) Af Amer > 60 (>60) 11/04/20 05:17 Est GFR (MDRD) Non-Af > 60 (>60) 11/04/20 05:17 Glucose 173 mg/dL (65-99) H 11/04/20 05:17 Calcium 7.7 mg/dL (8.5-10.1) L 11/04/20 05:17 Corrected Calcium 8.9 mg/dL (8.5-10.1) 11/04/20 05:17 Magnesium 2.4 mg/dL (1.7-2.9) 11/03/20 01:51 Ferritin 563 ng/mL (26-388) H 11/02/20 04:44 Total Bilirubin 0.90 mg/dL (0.2-1.0) 11/04/20 05:17 AST 44 Units/L (15-37) H 11/04/20 05:17 ALT 59 Units/L (12-78) 11/04/20 05:17 Alkaline Phosphatase 183 Units/L (46-116) H 11/04/20 05:17 C-Reactive Protein 4.80 mg/L (0-3.0) H 11/04/20 05:17 B-Natriuretic Peptide 62.1 pg/mL (0-79) 11/04/20 05:17 Total Protein 6.2 g/dL (6.4-8.2) L 11/04/20 05:17 Albumin 2.5 g/dL (3.4-5.0) L 11/04/20 05:17 Globulin 3.7 g/dL (2.5-4.5) 11/04/20 05:17 Albumin/Globulin Ratio 0.7 Ratio (1.1-2.1) L 11/04/20 05:17 Influenza Type A (PCR) Negative (NEGATIVE) 10/27/20 15:21 Influenza Type B (PCR) Negative (NEGATIVE) 10/27/20 15:21 Blood Type O POSITIVE 10/28/20 12:30 - Plan (1) Pneumonia due to 2019 novel coronavirus Status: Acute Plan: SUPPLEMENTAL OXYGEN, NORMAL SALINE AT 75 ML/HR, REMDESIVIR 100MG IV DAILY, FORTAZ 1G IV Q12H, LEVAQUIN 750MG IV Q48H, ALBUTEROL NEBS QID, MUCOMYST IN NEBS QID, BROVANA NEBS BID, PULMICORT NEBS BID, KLONOPIN 0.5MG PO BID, ASCORBIC ACID 1500MG IV Q6H, LIPITOR 80MG PO HS, TESSALON PERLES 200MG PO TID, ZYRTEC 10MG PO DAILY, TUSSIONEX 5ML PO Q12H PRN, COLACE 100MG PO HS, LOVENOX 100MG BID, PEPCID 20MG PO BID, DIFLUCAN 100MG PO DAILY, ROBITUSSIN DM 10ML PO QID, IVERMECTIN- PHARMACY TO DOSE, MAGIC MOUTHWASH QID, MILK OF MAG BID PRN, MELATONIN 10MG PO HS, SOLU-MEDROL 125MG IV Q6H, SINGULAIR 10MG PO HS, PROTONIX 40MG PO DAILY, THIAMINE 200MG IV BID, ELIEZER-DUR 300MG PO BID, AND ZINC SULFATE 220MG PO DAILY, ZOFRAN COCKTAIL Q8H PRN NAUSEA, GI COCKTAIL 15ML PO QID, SIMETUCIBE 80MG PO TID, SCOPOLOMINE T BEDTIME, FLONASE 2 SPRAYS BID (2) Hypoxia Status: Acute
[2020-11-04] MEDS: MYLICON TAB 80 MG CHEW PO SCH ×2 (15:04→22:16)
[2020-11-04] MEDS: SNACK - Diabetic Appropriate PO SCH (20:34)
[2020-11-04] MEDS: LIPITOR TAB 80 MG PO SCH (20:36)
[2020-11-04] MEDS: SINGULAIR TAB 10 MG PO SCH (20:37)
[2020-11-04] MEDS: MELATONIN PO SCH (20:38)
[2020-11-04] MEDS: PATIENT'S HOME MEDICATION PO SCH (20:39)
[2020-11-05] MEDS: PROVENTIL NEB TX 0.083% 2.5MG/ 3ML NEB SCH ×4 (00:45→18:20)
[2020-11-05] MEDS: MUCOMYST 20% 200 MG/ML NEB SCH ×4 (00:45→18:20)
[2020-11-05] MEDS: NS + KCL 20 MEQ/L 1,000 ML IV SCH ×2 (01:00→13:24)
[2020-11-05] MEDS: ASCORBIC ACID INJ MULTI-DOSE VIAL 1,500 MG in NS 50 ML IV 50 ML IV SCH ×5 (03:14→21:15)
[2020-11-05] MEDS: SOLU-Medrol 125 MG VIAL IVP SCH ×4 (03:14→20:37)
[2020-11-05] MEDS: FORTAZ or TAZICEF VIAL INJ IV SCH ×3 (05:24→22:46)
[2020-11-05] MEDS: TESSALON PERLES PO SCH ×3 (05:25→22:45)
[2020-11-05] MEDS: MYLICON TAB 80 MG CHEW PO SCH ×3 (05:26→22:46)
[2020-11-05 05:39] LABS: BASOPHILS % (AUTO) 0.2 % (0.2-1.0); HEMOGLOBIN 13.3 g/dL (13.5-18.0); LYMPHOCYTES # (AUTO) 0.2 X10^3/uL (1.3-2.9); LYMPHOCYTES % (AUTO) 1.3 % (21.0-51.0); MEAN CORPUSCULAR HEMOGLOBIN 27.6 pg (27.0-34.0); MEAN CORPUSCULAR HGB CONC 32.3 g/dL (33.0-35.0); MEAN CORPUSCULAR VOLUME 85.4 fL (80.0-100.0); MEAN PLATELET VOLUME 7.8 fL (7.4-11.0); MONOCYTES # (AUTO) 0.3 x10^3/uL (0.3-0.8); NEUTROPHILS # (AUTO) 15.8 x10^3/uL (2.2-4.8); NEUTROPHILS % (AUTO) 96.5 % (42.0-75.0); PLATELET COUNT 286 X10^3/uL (150.0-450.0); RED CELL DISTRIBUTION WIDTH 14.2 % (11.6-16.5); WHITE BLOOD COUNT 16.4 X10^3/uL (3.6-10.0)
[2020-11-05 05:43] LABS: ABG BASE EXCESS 7.8 mmol/L (-2.0-2.0)
[2020-11-05 05:44] LABS: ABG ALLEN TEST POS
[2020-11-05 05:49] LABS: ALANINE AMINOTRANSFERASE 52 Units/L (12-78); ALBUMIN 2.2 g/dL (3.4-5.0); ALKALINE PHOSPHATASE 160 Units/L (46-116); ASPARTATE AMINO TRANSFERASE 40 Units/L (15-37); BLOOD UREA NITROGEN 20 mg/dL (7-18); CALCIUM 7.3 mg/dL (8.5-10.1); CARBON DIOXIDE 30.2 mmol/L (21-32); CHLORIDE 102 mmol/L (98-107); COR CA(FOR HYPOALB) 8.7 mg/dL (8.5-10.1); COR NA(FOR HYPERGLY) 140 mmol/L (136-145); CREATININE 1.12 mg/dL (0.70-1.30); SODIUM 138 mmol/L (136-145); TOTAL PROTEIN 5.6 g/dL (6.4-8.2); eGFR NON BLACK RACES > 60 (>60)
[2020-11-05 06:29] LABS: PLATELET MORPHOLOGY COMMENT NORMAL (NORMAL)
--- NOTE | 2020-11-05 07:55 | RAD ---
HISTORYSOBSTUDYCHEST, 1 [id number] cardiomediastinal silhouette is stable. Similar left-sided airspace opacities. Slightly improved aeration in the right lung. The bony thorax appears intact.IMPRESSIONSlightly improved aeration in the right lung. Similar left-sided airspace opacities.Electronically signed by: THOMAS GRAY (Nov 05, 2020 07:53:07)
[2020-11-05] MEDS: COZAAR PO SCH (09:06)
[2020-11-05] MEDS: LEVSIN/MAALOX/LIDOC VISC PO SCH ×4 (09:07→20:37)
[2020-11-05] MEDS: DIFLUCAN PO SCH (09:07)
[2020-11-05] MEDS: FLONASE NASAL SPRAY ENOSTRIL SCH (09:07)
[2020-11-05] MEDS: KLONOPIN TAB 0.5 MG PO SCH ×2 (09:07→20:42)
[2020-11-05] MEDS: LEVAQUIN PREMIX IV 500 MG 500 MG/100 ML BAG IV SCH (09:07)
[2020-11-05] MEDS: MAXZIDE 37.5/25 MG PO SCH (09:08)
[2020-11-05] MEDS: MILK OF MAGNESIA PO SCH ×2 (09:08→20:39)
[2020-11-05] MEDS: PROTONIX TAB 40 MG PO SCH (09:09)
[2020-11-05] MEDS: PEPCID TAB 20 MG PO SCH ×2 (09:09→20:44)
[2020-11-05] MEDS: THEO-DUR TAB 300 MG 12-HR PO SCH ×2 (09:09→20:41)
[2020-11-05] MEDS: ROBITUSSIN DM PO SCH ×4 (09:09→20:42)
[2020-11-05] MEDS: ZyrTEC TAB 10 MG PO SCH (09:10)
[2020-11-05] MEDS: LOVENOX INJ 100 MG SYR SC SCH ×4 (09:10→21:10)
[2020-11-05] MEDS: VITAMIN D3 125 mcg (5,000 UNITS) PO SCH (09:10)
[2020-11-05] MEDS: ZINC SULFATE PO SCH (09:10)
[2020-11-05] MEDS: PULMICORT NEB TX 0.5 MG NEB SCH ×2 (09:35→21:40)
[2020-11-05] MEDS: BROVANA IN SCH ×2 (09:40→21:30)
--- NOTE | 2020-11-05 11:00 | PCM.PROG ---
Progress Note - Progress Note for Day of Date of Exam: 11/05/20 - Subjective Subjective: WAS ADMITTED FOR TREATMENT OF PNEUMONIA DUE TO COVID-19 AND HYPOXIA. TODAY, HE IS ALERT, SITTING ON THE SIDE OF THE BED ON MORNING ROUNDS. HE CONTINUES WITH COMPLAINT OF A NON-PRODUCTIVE COUGH, SHORTNESS OF BREATH, AND GENERALIZED WEAKNESS. HE DENIES SIGNIFICANT IMPROVEMENT IN SYMPTOMS SINCE YESTERDAY. HE IS CURRENTLY ON HEATED HIGH FLOW OXYGEN AT 93% FI02. HIS SATURATIONS HAVE BEEN 90-97% THIS MORNING AND THROUGHOUT THE NIGHT. HE HAS RECEIVED ONE UNIT OF CONVALESCENT PLASMA SINCE ADMISSION. ON EXAMINATION, HEART IS REGULAR IN RATE AND RHYTHM. BILATERAL LUNGS ARE NOTED WITH DIMINISHED LUNG SOUNDS THROUGHOUT. ABDOMEN IS ROUND, SOFT, AND NON-TENDER WITH NORMAL BOWEL SOUNDS NOTED IN ALL QUADRANTS. HIS VITALS THIS MORNING ARE: 98.2-78-22-92%-169/79. LABS WERE OBTAINED. ABNORMAL LAB VALUES INCLUDE THE FOLLOWING: WBC 16.4, HGB 13.3, HCT 41.0, D-DIMER 3.08, BUN 20, GLUCOSE 167, C ALCIUM 7.3, AST 40, ALK PHOS 160, CRP 3.30, BNP 88.2, TOTAL PROTEIN 5.6, ALBUMIN 2.2. AN ABG WAS OBTAINED AND REVEALED: PH 7.490, PC02 42, P02 55, HC03 32, 02 SAT 91, BASE EXCESS 7.8, A-A GRADIENT 556, FI02 93. A CHEST XRAY WAS OBTAINED AND REVEALED: Slightly improved aeration in the right lung. Similar left-sided airspace opacities. HE IS CURRENTLY RECEIVING NORMAL SALINE AT 75 ML/HR, REMDESIVIR 100MG IV DAILY, FORTAZ 1G IV Q12H, LEVAQUIN 750MG IV Q48H, ALBUTEROL NEBS Q6H, BROVANA NEB TX BID, MUCOMYST IN NEBS Q6H, PULMICORT NEBS BID, KLONOPIN 0.5MG PO BID, ASCORBIC ACID 1500MG IV Q6H, LIPITOR 80MG PO HS, TESSALON PERLES 200MG PO TID, ZYRTEC 10MG PO DAILY, TUSSIONEX 5ML PO Q12H PRN, COLACE 100MG PO HS, LOVENOX 100MG BID, PEPCID 20MG PO BID, DIFLUCAN 100MG PO DAILY, ROBITUSSIN DM 10ML PO QID, IVERMECTIN- PHARMACY TO DOSE, ZOFRAN COCKTAIL Q8H PRN, GI COCKTAIL 15ML PO QID, MAGIC MOUTHWASH QID, MILK OF MAG BID PRN, MELATONIN 10MG PO HS, SOLU-MEDROL 125MG IV Q6H, SINGULAIR 10MG PO HS, PROTONIX 40MG PO DAILY, THIAMINE 200MG IV BID, ELIEZER-DUR 300MG PO BID, ZINC SULFATE 220MG PO DAILY, FLON ASE 2 SPRAYS BID, SIMETHICONE 80MG PO TID, AND SCOPOLOMINE AT BEDTIME. TODAY, WE WILL ORDER FOR THE SMART VEST TO BE WORN THROUGHOUT THE DAY. WE WILL MAKE TUSSIONEX SCHEDULED. OTHERWISE, WE PLAN TO FOLLOW UP WITH AM LABS AND CONTINUE TO MONITOR. TIME SPENT ON CLINICAL ASSESSMENT, REVIEWING LABS AND IMAGING, DECISION MAKING, AND DOCUMENTATION GREATER THAN 75 MINUTES. - Past Medical Family Social History Past Med/Fam/Surg Hx: No changes since H&P Allergies: Allergies No Known Drug Allergies Allergy (Verified 10/27/20 15:06) - Review of Systems ROS: No change since H&P - Vital Signs and I&O's Vital Signs: Temperature 98.2 F Pulse Rate [Left Radial] 78 Pulse Rate 87 Respiratory Rate 22 Blood Pressure [Left Arm] 169/79 Blood Pressure 118/73 O2 Sat by Pulse Oximetry 92 Intake and Output: Intake & Output 11/02/20 11/03/20 11/04/20 11/05/20 11:59 11:59 11:59 11:59 Intake Total 3580 / 3580 3245 / 3245 2720 / 2720 3760 / 3760 Output Total 2100 / 2100 2500 / 2500 1900 / 1900 2500 / 2500 Balance 1480 / 1480 745 / 745 820 / 820 1260 / 1260 - Physical Exam Oriented: Normal Eyes: Normal Ear: Normal Nose: Normal Throat: Normal Respiratory: Generalized, Diminished Cardiovascular: Normal : Normal Auscultation: Bowel Sounds: Normal Tenderness: Normal Skin: Normal Musculoskeletal: Normal Psychiatric: Normal Mood Description: Calm Affect: Normal Speech Pattern: Clear, Appropriate - Laboratory and Diagnostics Result Diagrams: 11/05/20 04:00 11/05/20 04:00 Labs: 10/27/20 15:29 Blood Blood Culture - Final 10/27/20 15:24 Blood Blood Culture - Final Laboratory WBC 16.4 X10^3/uL (3.6-10.0) H 11/05/20 04:00 RBC 4.80 X10^6/uL (4.7-6.0) 11/05/20 04:00 Hgb 13.3 g/dL (13.5-18.0) L 11/05/20 04:00 Hct 41.0 % (42.0-54.0) L 11/05/20 04:00 MCV 85.4 fL (80.0-100.0) 11/05/20 04:00 MCH 27.6 pg (27.0-34.0) 11/05/20 04:00 MCHC 32.3 g/dL (33.0-35.0) L 11/05/20 04:00 RDW 14.2 % (11.6-16.5) 11/05/20 04:00 Plt Count 286 X10^3/uL (150.0-450.0) 11/05/20 04:00 Plt Count Comment Adequate (ADEQUATE) 11/05/20 04:00 MPV 7.8 fL (7.4-11.0) 11/05/20 04:00 Neut % (Auto) 96.5 % (42.0-75.0) H 11/05/20 04:00 Lymph % (Auto) 1.3 % (21.0-51.0) L 11/05/20 04:00 [place] % (Auto) 2.0 % (0.0-13.0) 11/05/20 04:00 Eos % (Auto) 0.0 % (0.9-2.9) L 11/05/20 04:00 Baso % (Auto) 0.2 % (0.2-1.0) 11/05/20 04:00 Neut # (Auto) 15.8 x10^3/uL (2.2-4.8) H 11/05/20 04:00 Lymph # (Auto) 0.2 X10^3/uL (1.3-2.9) L 11/05/20 04:00 [place] # (Auto) 0.3 x10^3/uL (0.3-0.8) 11/05/20 04:00 Eos # (Auto) 0.0 x10^3/uL (0.0-0.2) 11/05/20 04:00 Baso # (Auto) 0.0 X10^3/uL (0.0-0.1) 11/05/20 04:00 Absolute Nucleated RBC 0.1 /100WBC 11/05/20 04:00 Total Counted 100 11/05/20 04:00 Neutrophils % (Manual) 98 % (39-76) H 11/05/20 04:00 Band Neutrophils % 2 % (0-10) 11/04/20 05:17 Lymphocytes % (Manual) 1 % (13-43) L 11/05/20 04:00 Monocytes % (Manual) 1 % (4-9) L 11/05/20 04:00 Eosinophils % (Manual) 1 % (0-6) 10/27/20 14:48 Plt Morphology Comment Normal (NORMAL) 11/05/20 04:00 RBC Morphology Normal (NORMAL) 11/05/20 04:00 D-Dimer 3.08 ug/ml (0.0-0.57) H* 11/05/20 04:00 Sample Site Lr 11/05/20 05:00 ABG pH 7.490 (7.35-7.45) H 11/05/20 05:00 ABG pCO2 42.0 mmHg (35.0-45.0) 11/05/20 05:00 ABG pO2 55.0 mmHg (80.0-100.0) L 11/05/20 05:00 ABG HCO3 32.0 mmol/L (22-26) H* 11/05/20 05:00 ABG O2 Saturation 91.0 % (90-100) 11/05/20 05:00 ABG Base Excess 7.8 mmol/L (-2.0-2.0) H 11/05/20 05:00 Ramesh Test Pos 11/05/20 05:00 A-a Gradient 556.0 mmHg 11/05/20 05:00 FiO2 93.0 11/05/20 05:00 Blood Gas Comments [facility] well sw 11/05/20 05:00 Sodium 138 mmol/L (136-145) 11/05/20 04:00 Corrected Sodium 140 mmol/L (136-145) 11/05/20 04:00 Potassium 3.5 mmol/L (3.5-5.1) 11/05/20 04:00 Chloride 102 mmol/L (98-107) 11/05/20 04:00 Carbon Dioxide 30.2 mmol/L (21-32) 11/05/20 04:00 BUN 20 mg/dL (7-18) H 11/05/20 04:00 Creatinine 1.12 mg/dL (0.70-1.30) 11/05/20 04:00 Est GFR (MDRD) Af Amer > 60 (>60) 11/05/20 04:00 Est GFR (MDRD) Non-Af > 60 (>60) 11/05/20 04:00 Glucose 167 mg/dL (65-99) H 11/05/20 04:00 Calcium 7.3 mg/dL (8.5-10.1) L 11/05/20 04:00 Corrected Calcium 8.7 mg/dL (8.5-10.1) 11/05/20 04:00 Magnesium 2.4 mg/dL (1.7-2.9) 11/03/20 01:51 Ferritin 563 ng/mL (26-388) H 11/02/20 04:44 Total Bilirubin 0.90 mg/dL (0.2-1.0) 11/05/20 04:00 AST 40 Units/L (15-37) H 11/05/20 04:00 ALT 52 Units/L (12-78) 11/05/20 04:00 Alkaline Phosphatase 160 Units/L (46-116) H 11/05/20 04:00 C-Reactive Protein 3.30 mg/L (0-3.0) H 11/05/20 04:00 B-Natriuretic Peptide 88.2 pg/mL (0-79) H 11/05/20 04:00 Total Protein 5.6 g/dL (6.4-8.2) L 11/05/20 04:00 Albumin 2.2 g/dL (3.4-5.0) L 11/05/20 04:00 Globulin 3.4 g/dL (2.5-4.5) 11/05/20 04:00 Albumin/Globulin Ratio 0.6 Ratio (1.1-2.1) L 11/05/20 04:00 Influenza Type A (PCR) Negative (NEGATIVE) 10/27/20 15:21 Influenza Type B (PCR) Negative (NEGATIVE) 10/27/20 15:21 Blood Type O POSITIVE 10/28/20 12:30 - Plan (1) Pneumonia due to 2019 novel coronavirus Status: Acute Plan: SUPPLEMENTAL OXYGEN, NORMAL SALINE AT 75 ML/HR, REMDESIVIR 100MG IV DAILY, FORTAZ 1G IV Q12H, LEVAQUIN 750MG IV Q48H, ALBUTEROL NEBS QID, MUCOMYST IN NEBS QID, BROVANA NEBS BID, PULMICORT NEBS BID, KLONOPIN 0.5MG PO BID, ASCORBIC ACID 1500MG IV Q6H, LIPITOR 80MG PO HS, TESSALON PERLES 200MG PO TID, ZYRTEC 10MG PO DAILY, TUSSIONEX 5ML PO Q12H PRN, COLACE 100MG PO HS, LOVENOX 100MG BID, PEPCID 20MG PO BID, DIFLUCAN 100MG PO DAILY, ROBITUSSIN DM 10ML PO QID, IVERMECTIN- PHARMACY TO DOSE, MAGIC MOUTHWASH QID, MILK OF MAG BID PRN, MELATONIN 10MG PO HS, SOLU-MEDROL 125MG IV Q6H, SINGULAIR 10MG PO HS, PROTONIX 40MG PO DAILY, THIAMINE 200MG IV BID, ELIEZER-DUR 300MG PO BID, AND ZINC SULFATE 220MG PO DAILY, ZOFRAN COCKTAIL Q8H PRN NAUSEA, GI COCKTAIL 15ML PO QID, SIMETUCIBE 80MG PO TID, SCOPOLOMINE T BEDTIME, FLONASE 2 SPRAYS BID (2) Hypoxia Status: Acute
[2020-11-05] MEDS: TUSSIONEX PENNKINETIC SUSP PO SCH ×2 (11:38→22:46)
[2020-11-05] MEDS: SNACK - Diabetic Appropriate PO SCH (19:33)
[2020-11-05] MEDS: MELATONIN PO SCH (20:40)
[2020-11-05] MEDS: LIPITOR TAB 80 MG PO SCH (20:40)
[2020-11-05] MEDS: SINGULAIR TAB 10 MG PO SCH (20:40)
[2020-11-06] MEDS: MUCOMYST 20% 200 MG/ML NEB SCH ×4 (00:20→18:10)
[2020-11-06] MEDS: PROVENTIL NEB TX 0.083% 2.5MG/ 3ML NEB SCH ×4 (00:20→18:10)
[2020-11-06] MEDS: NS + KCL 20 MEQ/L 1,000 ML IV SCH ×2 (01:14→15:30)
[2020-11-06] MEDS: ASCORBIC ACID INJ MULTI-DOSE VIAL 1,500 MG in NS 50 ML IV 50 ML IV SCH ×4 (02:58→20:58)
[2020-11-06] MEDS: SOLU-Medrol 125 MG VIAL IVP SCH ×4 (02:58→21:08)
[2020-11-06] MEDS ORDERED: NS 50 ML IV 0 ML IV ONE (05:27)
[2020-11-06 05:45] LABS: ALANINE AMINOTRANSFERASE 46 Units/L (12-78); ALBUMIN 2.2 g/dL (3.4-5.0); ALKALINE PHOSPHATASE 145 Units/L (46-116); ASPARTATE AMINO TRANSFERASE 26 Units/L (15-37); BLOOD UREA NITROGEN 20 mg/dL (7-18); CALCIUM 7.4 mg/dL (8.5-10.1); CARBON DIOXIDE 31.1 mmol/L (21-32); CHLORIDE 103 mmol/L (98-107); COR CA(FOR HYPOALB) 8.8 mg/dL (8.5-10.1); COR NA(FOR HYPERGLY) 141 mmol/L (136-145); CREATININE 1.12 mg/dL (0.70-1.30); SODIUM 139 mmol/L (136-145); TOTAL PROTEIN 5.5 g/dL (6.4-8.2); eGFR NON BLACK RACES > 60 (>60)
[2020-11-06] MEDS: FORTAZ or TAZICEF VIAL INJ IV SCH ×3 (05:52→21:00)
[2020-11-06] MEDS: TESSALON PERLES PO SCH ×3 (05:52→20:59)
[2020-11-06] MEDS: MYLICON TAB 80 MG CHEW PO SCH ×3 (05:52→20:59)
[2020-11-06 05:57] LABS: BASOPHILS % (AUTO) 0.2 % (0.2-1.0); EOSINOPHILS % (AUTO) 0.1 % (0.9-2.9); HEMATOCRIT 40.3 % (42.0-54.0); HEMOGLOBIN 13.1 g/dL (13.5-18.0); LYMPHOCYTES # (AUTO) 0.1 X10^3/uL (1.3-2.9); MEAN CORPUSCULAR HEMOGLOBIN 27.5 pg (27.0-34.0); MEAN CORPUSCULAR HGB CONC 32.5 g/dL (33.0-35.0); MEAN CORPUSCULAR VOLUME 84.5 fL (80.0-100.0); MEAN PLATELET VOLUME 7.7 fL (7.4-11.0); MONOCYTES # (AUTO) 0.2 x10^3/uL (0.3-0.8); MONOCYTES % (AUTO) 1.3 % (0.0-13.0); NEUTROPHILS # (AUTO) 14.4 x10^3/uL (2.2-4.8); NEUTROPHILS % (AUTO) 97.4 % (42.0-75.0); PLATELET COUNT 260 X10^3/uL (150.0-450.0); RED BLOOD COUNT 4.77 X10^6/uL (4.7-6.0); RED CELL DISTRIBUTION WIDTH 14.1 % (11.6-16.5); WHITE BLOOD COUNT 14.7 X10^3/uL (3.6-10.0)
[2020-11-06] MEDS: PATIENT'S HOME MEDICATION PO SCH ×2 (05:58→21:30)
[2020-11-06 06:11] LABS: ABG BASE EXCESS 5.8 mmol/L (-2.0-2.0); ABG HCO3 29.8 mmol/L (22-26)
[2020-11-06 06:12] LABS: ABG ALLEN TEST POSS
--- NOTE | 2020-11-06 06:29 | RAD ---
HISTORYShortness of breath follow-up lung infiltratesSTUDYChest AP [id number] heart remains enlarged. No congestive heart failure is noted. The lungs remain hypoinflated. Bilateral infiltrates are unchanged in degree or distribution from the prior examination. Left pleural effusion is likely present. Bony thorax is unremarkable.IMPRESSIONNo change hypo inflationNo change diffuse bilateral infiltratesSuspect small left pleural effusionElectronically signed by: THOMAS GRAY (Nov 06, 2020 06:27:59)
[2020-11-06 07:21] LABS: BAND NEUTROPHILS % 1 % (0-10)
[2020-11-06 07:22] LABS: PLATELET MORPHOLOGY COMMENT NORMAL (NORMAL)
[2020-11-06] MEDS: LEVSIN/MAALOX/LIDOC VISC PO SCH ×4 (09:07→21:26)
[2020-11-06] MEDS: LOVENOX INJ 100 MG SYR SC SCH ×2 (09:07→21:31)
[2020-11-06] MEDS: MILK OF MAGNESIA PO SCH ×2 (09:07→21:08)
[2020-11-06] MEDS: ZINC SULFATE PO SCH (09:09)
[2020-11-06] MEDS: VITAMIN D3 125 mcg (5,000 UNITS) PO SCH (09:09)
[2020-11-06] MEDS: ZyrTEC TAB 10 MG PO SCH (09:09)
[2020-11-06] MEDS: THEO-DUR TAB 300 MG 12-HR PO SCH ×2 (09:10→20:59)
[2020-11-06] MEDS: PROTONIX TAB 40 MG PO SCH (09:10)
[2020-11-06] MEDS: LEVAQUIN PREMIX IV 500 MG 500 MG/100 ML BAG IV SCH (09:10)
[2020-11-06] MEDS: ROBITUSSIN DM PO SCH ×4 (09:10→21:01)
[2020-11-06] MEDS: KLONOPIN TAB 0.5 MG PO SCH ×2 (09:11→21:27)
[2020-11-06] MEDS: PEPCID TAB 20 MG PO SCH ×2 (09:11→21:27)
[2020-11-06] MEDS: COZAAR PO SCH (09:11)
[2020-11-06] MEDS: MAXZIDE 37.5/25 MG PO SCH (09:11)
[2020-11-06] MEDS: DIFLUCAN PO SCH (09:12)
[2020-11-06] MEDS: FLONASE NASAL SPRAY ENOSTRIL SCH (09:12)
[2020-11-06] MEDS: PULMICORT NEB TX 0.5 MG NEB SCH ×2 (09:25→21:15)
[2020-11-06] MEDS: BROVANA IN SCH ×2 (09:30→21:15)
[2020-11-06] MEDS: TUSSIONEX PENNKINETIC SUSP PO SCH ×2 (12:17→22:40)
[2020-11-06] MEDS: SNACK - Diabetic Appropriate PO SCH (19:19)
[2020-11-06] MEDS: LIPITOR TAB 80 MG PO SCH (21:00)
[2020-11-06] MEDS: SINGULAIR TAB 10 MG PO SCH (21:11)
[2020-11-06] MEDS: MELATONIN PO SCH (21:29)
[2020-11-07] MEDS: MUCOMYST 20% 200 MG/ML NEB SCH ×4 (00:18→16:55)
[2020-11-07] MEDS: PROVENTIL NEB TX 0.083% 2.5MG/ 3ML NEB SCH ×4 (00:18→16:55)
[2020-11-07] MEDS: ASCORBIC ACID INJ MULTI-DOSE VIAL 1,500 MG in NS 50 ML IV 50 ML IV SCH ×4 (03:02→21:27)
[2020-11-07] MEDS: SOLU-Medrol 125 MG VIAL IVP SCH ×4 (03:04→21:30)
[2020-11-07] MEDS: NS + KCL 20 MEQ/L 1,000 ML IV SCH ×2 (03:56→17:32)
[2020-11-07] MEDS: TESSALON PERLES PO SCH ×3 (05:14→22:23)
[2020-11-07] MEDS: FORTAZ or TAZICEF VIAL INJ IV SCH ×3 (05:14→21:28)
[2020-11-07] MEDS: MYLICON TAB 80 MG CHEW PO SCH ×3 (05:14→21:28)
[2020-11-07 05:44] LABS: ABG ALLEN TEST POS; ABG BASE EXCESS 2.9 mmol/L (-2.0-2.0); ABG HCO3 25.3 mmol/L (22-26)
--- NOTE | 2020-11-07 05:50 | RAD ---
PROCEDURE: Chest X-ray 1 View .HISTORY: SOB, COVID PNEUMONIA .TECHNIQUE: AP view.COMPARISON: 11/06/2020.TECHNICAL QUALITY: Satisfactory .FINDINGS:Unremarkable cardio mediastinal silhouette.Normal central vascularity.Patchy consolidation lung bases similar to previous study allowing for technical differences with no pleural fluid or pneumothorax.IMPRESSION:Unchanged bilateral pneumonia.Electronically signed by: Reji Ballesteros (Nov 07, 2020 05:48:25)
[2020-11-07 06:57] LABS: BASOPHILS # (AUTO) 0.1 X10^3/uL (0.0-0.1); BASOPHILS % (AUTO) 0.4 % (0.2-1.0); HEMATOCRIT 44.8 % (42.0-54.0); HEMOGLOBIN 14.5 g/dL (13.5-18.0); LYMPHOCYTES # (AUTO) 0.2 X10^3/uL (1.3-2.9); LYMPHOCYTES % (AUTO) 1.2 % (21.0-51.0); MEAN CORPUSCULAR HEMOGLOBIN 27.6 pg (27.0-34.0); MEAN CORPUSCULAR HGB CONC 32.2 g/dL (33.0-35.0); MEAN CORPUSCULAR VOLUME 85.4 fL (80.0-100.0); MEAN PLATELET VOLUME 8.1 fL (7.4-11.0); MONOCYTES # (AUTO) 0.3 x10^3/uL (0.3-0.8); MONOCYTES % (AUTO) 1.8 % (0.0-13.0); NEUTROPHILS # (AUTO) 18.3 x10^3/uL (2.2-4.8); NEUTROPHILS % (AUTO) 96.6 % (42.0-75.0); PLATELET COUNT 291 X10^3/uL (150.0-450.0); RED BLOOD COUNT 5.25 X10^6/uL (4.7-6.0); RED CELL DISTRIBUTION WIDTH 14.3 % (11.6-16.5); WHITE BLOOD COUNT 18.9 X10^3/uL (3.6-10.0)
[2020-11-07 07:15] LABS: ALANINE AMINOTRANSFERASE 57 Units/L (12-78); ALBUMIN 2.5 g/dL (3.4-5.0); ALKALINE PHOSPHATASE 156 Units/L (46-116); ASPARTATE AMINO TRANSFERASE 37 Units/L (15-37); BLOOD UREA NITROGEN 21 mg/dL (7-18); CALCIUM 7.5 mg/dL (8.5-10.1); CARBON DIOXIDE 26.9 mmol/L (21-32); CHLORIDE 101 mmol/L (98-107); COR CA(FOR HYPOALB) 8.7 mg/dL (8.5-10.1); COR NA(FOR HYPERGLY) 141 mmol/L (136-145); CREATININE 1.23 mg/dL (0.70-1.30); SODIUM 138 mmol/L (136-145); TOTAL PROTEIN 6.2 g/dL (6.4-8.2); eGFR NON BLACK RACES > 60 (>60)
[2020-11-07 08:01] LABS: BAND NEUTROPHILS % 4 % (0-10); PLATELET MORPHOLOGY COMMENT NORMAL (NORMAL)
[2020-11-07] MEDS: PULMICORT NEB TX 0.5 MG NEB SCH (09:30)
[2020-11-07] MEDS: BROVANA IN SCH ×2 (09:34→21:20)
[2020-11-07] MEDS: PROTONIX TAB 40 MG PO SCH (09:57)
[2020-11-07] MEDS: LOVENOX INJ 100 MG SYR SC SCH ×2 (09:59→21:32)
[2020-11-07] MEDS: MILK OF MAGNESIA PO SCH ×3 (09:59→22:22)
[2020-11-07] MEDS: VITAMIN D3 125 mcg (5,000 UNITS) PO SCH (10:00)
[2020-11-07] MEDS: LEVSIN/MAALOX/LIDOC VISC PO SCH ×5 (10:00→21:27)
[2020-11-07] MEDS: ZINC SULFATE PO SCH (10:00)
[2020-11-07] MEDS: MAXZIDE 37.5/25 MG PO SCH (10:01)
[2020-11-07] MEDS: ZyrTEC TAB 10 MG PO SCH (10:01)
[2020-11-07] MEDS: COZAAR PO SCH (10:02)
[2020-11-07] MEDS: LEVAQUIN PREMIX IV 500 MG 500 MG/100 ML BAG IV SCH (10:03)
[2020-11-07] MEDS: DIFLUCAN PO SCH (10:03)
[2020-11-07] MEDS: ROBITUSSIN DM PO SCH ×4 (10:04→21:30)
[2020-11-07] MEDS: PEPCID TAB 20 MG PO SCH ×2 (10:04→21:30)
[2020-11-07] MEDS: FLONASE NASAL SPRAY ENOSTRIL SCH (10:05)
[2020-11-07] MEDS: KLONOPIN TAB 0.5 MG PO SCH ×2 (10:05→21:32)
[2020-11-07] MEDS: THEO-DUR TAB 300 MG 12-HR PO SCH ×2 (10:06→21:29)
[2020-11-07] MEDS: TUSSIONEX PENNKINETIC SUSP PO SCH (11:44)
--- NOTE | 2020-11-07 13:42 | PCM.PROG ---
Progress Note Progress Note for Day of Date of Exam: 11/07/20 Subjective Subjective: PATIENT IS A 70 YEAR OLD MALE ADMITTED FOR TREATMENT OF PNEUMONIA DUE TO COVID-19 AND HYPOXIA. THIS MORNING HE IS SITTING ON THE SIDE OF THE BED. HE CONTINUES TO HAVE NON-PRODUCTIVE COUGH, SHORTNESS OF BREATH, AND GENERALIZED WEAKNESS. HE REPORTS VERY MINIMAL IMPROVEMENT COMPARED TO YESTERDAY AND HAS ON A NON-REBREATHER OVER HIS HEATED HIGH FLOW OXYGEN THAT IS AT 100% FI02. HIS SATURATIONS HAVE BEEN 88-92%. HE HAS RECEIVED ONE UNIT OF CONVALESCENT PLASMA SINCE ADMISSION. ON EXAMINATION, HEART IS REGULAR IN RATE AND RHYTHM. BILATERAL LUNGS ARE NOTED WITH DIMINISHED LUNG SOUNDS THROUGHOUT. ABDOMEN IS ROUND, SOFT, AND NON-TENDER WITH NORMAL BOWEL SOUNDS NOTED IN ALL QUADRANTS. HIS VITALS THIS MORNING ARE: 97.7-83-24-92%-180/91. LABS/IMAGING WERE OBTAINED AND REVEALED: WBC 18.9, HGB 14.5, PLT 291, NA 138, K 3.6, CREATININE 1.23, GLUCOSE 208, AST 37, ALT 57, ALK PHOS 156, CRP 2.10, BNP 88.2, AN ABG WAS OBTAINED AND REVEALED: PH 7.52, PC02 31, P02 51, HC03 25, 02 SAT 90%, FI02 90%. A CHEST XRAY WAS OBTAINED AND REVEALED: Patchy consolidation lung bases similar to previous study allowing for technical differences with no pleural fluid or pneumothorax. HIS TREATMENT COURSE INCLUDES: NORMAL SALINE AT 75 ML/HR, REMDESIVIR 100MG IV DAILY, FORTAZ 1G IV Q12H, LEVAQUIN 750MG IV Q48H, ALBUTEROL NEBS Q6H, BROVANA NEB TX BID, MUCOMYST IN NEBS Q6H, PULMICORT NEBS BID, KLONOPIN 0.5MG PO BID, ASCORBIC ACID 1500MG IV Q6H, LIPITOR 80MG PO HS, TESSALON PERLES 200MG PO TID, ZYRTEC 10MG PO DAILY, TUSSIONEX 5ML PO Q12H PRN, COLACE 100MG PO HS, LOVENOX 100MG BID, PEPCID 20MG PO BID, DIFLUCAN 100MG PO DAILY, ROBITUSSIN DM 10ML PO QID, IVERMECTIN- PHARMACY TO DOSE, ZOFRAN COCKTAIL Q8H PRN, GI COCKTAIL 15ML PO QID, MAGIC MOUTHWASH QID, MILK OF MAG BID PRN, MELATONIN 10MG PO HS, SOLU-MEDROL 125MG IV Q6H, SINGULAIR 10MG PO HS, PROTONIX 40MG PO DAILY, THIAMINE 200MG IV BID, ELIEZER- DUR 300MG PO BID, ZINC SULFATE 220MG PO DAILY, FLONASE 2 SPRAYS BID, SIMETHICONE 80MG PO TID, AND SCOPOLOMINE AT BEDTIME. PATIENT'S OXYGEN SATURATIONS CONTINUE TO FLUCTUATE AND GRADUALLY DECLINING TO UPPER 80's AND AT TIMES MID 80's. PATIENT IS HESITANT TO BE ON BIPAP IF NEEDED, WILL DISCUSS AND EDUCATE PATIENT MORE ON TREATMENT OPTION. OTHERWISE, CONTINUE CURRENT TREATMENT PLAN, WEAN SUPPLEMENTAL OXYGEN TOLERATED. CONTINUE TO MONITOR, FOLLOW UP LABS/IMAGING IN THE MORNING. TIME SPENT ON CLINICAL ASSESSMENT, REVIEWING LABS AND IMAGING, DECISION MAKING, AND DOCUMENTATION GREATER THAN 75 MINUTES. Past Medical Family Social History Past Med/Fam/Surg Hx: No changes since H&P Allergies: Allergies No Known Drug Allergies Allergy (Verified 10/27/20 15:06) Review of Systems ROS: No change since H&P Vital Signs and I&O's Vital Signs: Temperature 97.7 F Pulse Rate [Left Radial] 83 Pulse Rate 93 Respiratory Rate 24 Blood Pressure [Left Arm] 193/24 Blood Pressure 118/73 O2 Sat by Pulse Oximetry 84 Intake and Output: Intake & Output 11/04/20 11/05/20 11/06/20 11/07/20 23:59 23:59 23:59 23:59 Intake Total 4600 / 4600 3202 / 3202 3605 / 3605 300 / 300 Output Total 3180 / 3180 2850 / 2850 2720 / 2720 340 / 340 Balance 1420 / 1420 352 / 352 885 / 885 -40 / -40 Physical Exam Oriented: Normal Eyes: Normal Ear: Normal Nose: Normal Throat: Normal Respiratory: Generalized and Diminished Cardiovascular: Normal : Normal Auscultation: Bowel Sounds: Normal Tenderness: Normal Skin: Normal Musculoskeletal: Normal Psychiatric: Normal Mood Description: Calm Affect: Normal Speech Pattern: Clear and Delayed Laboratory and Diagnostics Result Diagrams: 11/07/20 05:26 11/07/20 05:26 Labs: 10/27/20 15:29 Blood Blood Culture - Final 10/27/20 15:24 Blood Blood Culture - Final Laboratory WBC 18.9 X10^3/uL (3.6-10.0) H 11/07/20 05:26 RBC 5.25 X10^6/uL (4.7-6.0) 11/07/20 05:26 Hgb 14.5 g/dL (13.5-18.0) 11/07/20 05:26 Hct 44.8 % (42.0-54.0) 11/07/20 05:26 MCV 85.4 fL (80.0-100.0) 11/07/20 05:26 MCH 27.6 pg (27.0-34.0) 11/07/20 05:26 MCHC 32.2 g/dL (33.0-35.0) L 11/07/20 05:26 RDW 14.3 % (11.6-16.5) 11/07/20 05:26 Plt Count 291 X10^3/uL (150.0-450.0) 11/07/20 05:26 Plt Count Comment Adequate (ADEQUATE) 11/07/20 05:26 MPV 8.1 fL (7.4-11.0) 11/07/20 05:26 Neut % (Auto) 96.6 % (42.0-75.0) H 11/07/20 05:26 Lymph % (Auto) 1.2 % (21.0-51.0) L 11/07/20 05:26 [place] % (Auto) 1.8 % (0.0-13.0) 11/07/20 05:26 Eos % (Auto) 0.0 % (0.9-2.9) L 11/07/20 05:26 Baso % (Auto) 0.4 % (0.2-1.0) 11/07/20 05:26 Neut # (Auto) 18.3 x10^3/uL (2.2-4.8) H 11/07/20 05:26 Lymph # (Auto) 0.2 X10^3/uL (1.3-2.9) L 11/07/20 05:26 [place] # (Auto) 0.3 x10^3/uL (0.3-0.8) 11/07/20 05:26 Eos # (Auto) 0.0 x10^3/uL (0.0-0.2) 11/07/20 05:26 Baso # (Auto) 0.1 X10^3/uL (0.0-0.1) 11/07/20 05:26 Absolute Nucleated RBC 0.0 /100WBC 11/07/20 05:26 Total Counted 100 11/07/20 05:26 Neutrophils % (Manual) 86 % (39-76) H 11/07/20 05:26 Band Neutrophils % 4 % (0-10) 11/07/20 05:26 Lymphocytes % (Manual) 5 % (13-43) L 11/07/20 05:26 Monocytes % (Manual) 5 % (4-9) 11/07/20 05:26 Eosinophils % (Manual) 1 % (0-6) 10/27/20 14:48 Plt Morphology Comment Normal (NORMAL) 11/07/20 05:26 RBC Morphology Normal (NORMAL) 11/07/20 05:26 D-Dimer 3.19 ug/ml (0.0-0.57) H* 11/07/20 05:26 Sample Site Rr 11/07/20 05:30 ABG pH 7.520 (7.35-7.45) H 11/07/20 05:30 ABG pCO2 31.0 mmHg (35.0-45.0) L 11/07/20 05:30 ABG pO2 51.0 mmHg (80.0-100.0) L 11/07/20 05:30 ABG HCO3 25.3 mmol/L (22-26) 11/07/20 05:30 ABG O2 Saturation 90.0 % (90-100) 11/07/20 05:30 ABG Base Excess 2.9 mmol/L (-2.0-2.0) H 11/07/20 05:30 Ramesh Test Pos 11/07/20 05:30 A-a Gradient 552.0 mmHg 11/07/20 05:30 FiO2 90.0 11/07/20 05:30 Blood Gas Comments [facility], 11/07/20 05:30 Sodium 138 mmol/L (136-145) 11/07/20 05:26 Corrected Sodium 141 mmol/L (136-145) 11/07/20 05:26 Potassium 3.6 mmol/L (3.5-5.1) 11/07/20 05:26 Chloride 101 mmol/L (98-107) 11/07/20 05:26 Carbon Dioxide 26.9 mmol/L (21-32) 11/07/20 05:26 BUN 21 mg/dL (7-18) H 11/07/20 05:26 Creatinine 1.23 mg/dL (0.70-1.30) 11/07/20 05:26 Est GFR (MDRD) Af Amer > 60 (>60) 11/07/20 05:26 Est GFR (MDRD) Non-Af > 60 (>60) 11/07/20 05:26 Glucose 208 mg/dL (65-99) H 11/07/20 05:26 POC Glucose (mg/dL) 174 mg/dL (65-99) H 11/07/20 11:53 Calcium 7.5 mg/dL (8.5-10.1) L 11/07/20 05:26 Corrected Calcium 8.7 mg/dL (8.5-10.1) 11/07/20 05:26 Magnesium 2.4 mg/dL (1.7-2.9) 11/03/20 01:51 Ferritin 563 ng/mL (26-388) H 11/02/20 04:44 Total Bilirubin 1.00 mg/dL (0.2-1.0) 11/07/20 05:26 AST 37 Units/L (15-37) 11/07/20 05:26 ALT 57 Units/L (12-78) 11/07/20 05:26 Alkaline Phosphatase 156 Units/L (46-116) H 11/07/20 05:26 C-Reactive Protein 2.10 mg/L (0-3.0) 11/07/20 05:26 B-Natriuretic Peptide 57.9 pg/mL (0-79) 11/07/20 05:26 Total Protein 6.2 g/dL (6.4-8.2) L 11/07/20 05:26 Albumin 2.5 g/dL (3.4-5.0) L 11/07/20 05:26 Globulin 3.7 g/dL (2.5-4.5) 11/07/20 05:26 Albumin/Globulin Ratio 0.7 Ratio (1.1-2.1) L 11/07/20 05:26 Influenza Type A (PCR) Negative (NEGATIVE) 10/27/20 15:21 Influenza Type B (PCR) Negative (NEGATIVE) 10/27/20 15:21 Blood Type O POSITIVE 10/28/20 12:30 Plan (1) Pneumonia due to 2019 novel coronavirus: Status: Acute Plan: SUPPLEMENTAL OXYGEN, NORMAL SALINE AT 75 ML/HR, REMDESIVIR 100MG IV DAILY, FORTAZ 1G IV Q12H, LEVAQUIN 750MG IV Q48H, ALBUTEROL NEBS QID, MUCOMYST IN NEBS QID, BROVANA NEBS BID, PULMICORT NEBS BID, KLONOPIN 0.5MG PO BID, ASCORBIC ACID 1500MG IV Q6H, LIPITOR 80MG PO HS, TESSALON PERLES 200MG PO TID, ZYRTEC 10MG PO DAILY, TUSSIONEX 5ML PO Q12H PRN, COLACE 100MG PO HS, LOVENOX 100MG BID, PEPCID 20MG PO BID, DIFLUCAN 100MG PO DAILY, ROBITUSSIN DM 10ML PO QID, IVERMECTIN- PHARMACY TO DOSE, MAGIC MOUTHWASH QID, MILK OF MAG BID PRN, MELATONIN 10MG PO HS, SOLU-MEDROL 125MG IV Q6H, SINGULAIR 10MG PO HS, PROTONIX 40MG PO DAILY, THIAMINE 200MG IV BID, ELIEZER-DUR 300MG PO BID, AND ZINC SULFATE 220MG PO DAILY, ZOFRAN COCKTAIL Q8H PRN NAUSEA, GI COCKTAIL 15ML PO QID, SIMETUCIBE 80MG PO TID, SCOPOLOMINE T BEDTIME, FLONASE 2 SPRAYS BID (2) Hypoxia: Status: Acute
[2020-11-07] MEDS ORDERED: NS 100 ML IV 100 ML IV ONE ×2 (13:58→21:42)
[2020-11-07] MEDS: SNACK - Diabetic Appropriate PO SCH ×2 (21:00→22:24)
[2020-11-07] MEDS: SINGULAIR TAB 10 MG PO SCH (21:30)
[2020-11-07] MEDS: PATIENT'S HOME MEDICATION PO SCH (21:30)
[2020-11-07] MEDS: MELATONIN PO SCH (21:31)
[2020-11-07] MEDS: LIPITOR TAB 80 MG PO SCH (21:31)
[2020-11-08] MEDS: TUSSIONEX PENNKINETIC SUSP PO SCH
[2020-11-08] MEDS: VISTARIL PO PRN ×2 (02:15→09:25)
[2020-11-08] MEDS: PROVENTIL NEB TX 0.083% 2.5MG/ 3ML NEB SCH ×4 (03:25→16:50)
[2020-11-08] MEDS: MUCOMYST 20% 200 MG/ML NEB SCH ×4 (03:25→16:50)
[2020-11-08] MEDS: ASCORBIC ACID INJ MULTI-DOSE VIAL 1,500 MG in NS 50 ML IV 50 ML IV SCH ×4 (04:14→21:48)
[2020-11-08] MEDS: SOLU-Medrol 125 MG VIAL IVP SCH ×4 (04:14→21:49)
[2020-11-08 06:01] LABS: ABG BASE EXCESS 5.1 mmol/L (-2.0-2.0); ABG HCO3 27.1 mmol/L (22-26)
[2020-11-08 06:03] LABS: ABG ALLEN TEST POSS
[2020-11-08 06:09] LABS: ALANINE AMINOTRANSFERASE 57 Units/L (12-78); ALBUMIN 2.3 g/dL (3.4-5.0); ALKALINE PHOSPHATASE 130 Units/L (46-116); ASPARTATE AMINO TRANSFERASE 36 Units/L (15-37); BLOOD UREA NITROGEN 20 mg/dL (7-18); CALCIUM 7.3 mg/dL (8.5-10.1); CARBON DIOXIDE 25.1 mmol/L (21-32); CHLORIDE 102 mmol/L (98-107); COR CA(FOR HYPOALB) 8.7 mg/dL (8.5-10.1); COR NA(FOR HYPERGLY) 140 mmol/L (136-145); CREATININE 1.09 mg/dL (0.70-1.30); SODIUM 138 mmol/L (136-145); TOTAL PROTEIN 5.8 g/dL (6.4-8.2); eGFR NON BLACK RACES > 60 (>60)
[2020-11-08 06:11] LABS: BASOPHILS % (AUTO) 0.1 % (0.2-1.0); HEMATOCRIT 43.3 % (42.0-54.0); HEMOGLOBIN 14.2 g/dL (13.5-18.0); LYMPHOCYTES # (AUTO) 0.2 X10^3/uL (1.3-2.9); LYMPHOCYTES % (AUTO) 1.2 % (21.0-51.0); MEAN CORPUSCULAR HEMOGLOBIN 27.5 pg (27.0-34.0); MEAN CORPUSCULAR HGB CONC 32.7 g/dL (33.0-35.0); MONOCYTES # (AUTO) 0.2 x10^3/uL (0.3-0.8); MONOCYTES % (AUTO) 1.5 % (0.0-13.0); NEUTROPHILS # (AUTO) 15.4 x10^3/uL (2.2-4.8); NEUTROPHILS % (AUTO) 97.2 % (42.0-75.0); PLATELET COUNT 245 X10^3/uL (150.0-450.0); RED BLOOD COUNT 5.15 X10^6/uL (4.7-6.0); RED CELL DISTRIBUTION WIDTH 14.1 % (11.6-16.5); WHITE BLOOD COUNT 15.9 X10^3/uL (3.6-10.0)
[2020-11-08] MEDS ORDERED: NS 100 ML IV 100 ML IV ONE ×3 (06:14→20:48)
--- NOTE | 2020-11-08 06:32 | RAD ---
HISTORYPneumoniaSTUDYPortable AP [id number] heart size and contour. There is no change in degree or distribution of bilateral lower lobe airspace disease. The upper lobes remain more clearly aerated. No large pleural effusion or complicating pneumothorax is seen.IMPRESSIONNo change. Stable appearance of bilateral pneumonia.Electronically signed by: DOROTHY HINDS (Nov 08, 2020 06:30:23)
[2020-11-08] MEDS: FORTAZ or TAZICEF VIAL INJ IV SCH ×3 (06:48→21:47)
[2020-11-08] MEDS: NS + KCL 20 MEQ/L 1,000 ML IV SCH (06:49)
[2020-11-08] MEDS: MYLICON TAB 80 MG CHEW PO SCH ×3 (06:49→21:49)
[2020-11-08] MEDS: TESSALON PERLES PO SCH ×3 (06:49→21:48)
[2020-11-08 07:33] LABS: BAND NEUTROPHILS % 2 % (0-10)
[2020-11-08 07:34] LABS: PLATELET MORPHOLOGY COMMENT NORMAL (NORMAL)
[2020-11-08] MEDS: ZOFRAN INJ 4 MG VIAL IVP PRN ×2 (08:45→20:00)
[2020-11-08] MEDS: LEVSIN/MAALOX/LIDOC VISC PO SCH ×4 (08:46→21:45)
[2020-11-08] MEDS: COZAAR PO SCH (08:48)
[2020-11-08] MEDS: DIFLUCAN PO SCH (08:48)
[2020-11-08] MEDS: LEVAQUIN PREMIX IV 500 MG 500 MG/100 ML BAG IV SCH (08:49)
[2020-11-08] MEDS: KLONOPIN TAB 0.5 MG PO SCH ×2 (08:49→21:52)
[2020-11-08] MEDS: FLONASE NASAL SPRAY ENOSTRIL SCH (08:49)
[2020-11-08] MEDS: LOVENOX INJ 100 MG SYR SC SCH ×2 (08:50→21:51)
[2020-11-08] MEDS: MAXZIDE 37.5/25 MG PO SCH (08:52)
[2020-11-08] MEDS: PEPCID TAB 20 MG PO SCH ×2 (08:53→21:50)
[2020-11-08] MEDS: PROTONIX TAB 40 MG PO SCH (08:53)
[2020-11-08] MEDS: ROBITUSSIN DM PO SCH ×4 (08:53→21:49)
[2020-11-08] MEDS: VITAMIN D3 125 mcg (5,000 UNITS) PO SCH (08:54)
[2020-11-08] MEDS: THEO-DUR TAB 300 MG 12-HR PO SCH ×2 (08:54→21:47)
[2020-11-08] MEDS: ZyrTEC TAB 10 MG PO SCH (08:55)
[2020-11-08] MEDS: ZINC SULFATE PO SCH (08:55)
[2020-11-08] MEDS: MILK OF MAGNESIA PO SCH ×2 (08:56→21:49)
[2020-11-08] MEDS: BROVANA IN SCH ×2 (10:00→21:13)
[2020-11-08] MEDS: PULMICORT NEB TX 0.5 MG NEB SCH ×2 (10:10→21:13)
--- NOTE | 2020-11-08 12:17 | PCM.PROG ---
Progress Note Progress Note for Day of Date of Exam: 11/08/20 Subjective Subjective: PATIENT IS A 70 YEAR OLD MALE ADMITTED FOR TREATMENT OF PNEUMONIA DUE TO COVID-19 AND HYPOXIA. THIS MORNING HE REPORTS HIS BREATHING HAS BECOME WORSE. HE HAS NOW BEEN CHANGED FROM HEATED HIGH FLOW OXYGEN TO BIPAP SUPPORT WITH FIO2 AT 100% TO MAINTAIN ADEQUATE OXYGENATION. HIS SATURATIONS WERE IN THE 80'S BUT HAS NOW IMPROVED TO MID 90'S WITH BIPAP. HE HAS RECEIVED ONE UNIT OF CONVALESCENT PLASMA SINCE ADMISSION. ON EXAMINATION, HEART IS REGULAR IN RATE AND RHYTHM. BILATERAL LUNGS ARE NOTED WITH DIMINISHED LUNG SOUNDS THROUGHOUT. ABDOMEN IS ROUND, SOFT, AND NON-TENDER WITH NORMAL BOWEL SOUNDS NOTED IN ALL QUADRANTS. HIS VITALS THIS MORNING ARE: 98-80-24-95%-150/80. LABS/IMAGING WERE O BTAINED AND REVEALED: WBC 15.9, HGB 14.2, PLT 245, NA 140, K 3.5, CREATININE 1.09, GLUCOSE 179, AST 36, ALT 57, ALK PHOS 130, AN ABG WAS OBTAINED AND REVEALED: PH 7.55, PC02 31, P02 50, HC03 27, 02 SAT 90%, FI02 100%. A CHEST XRAY WAS OBTAINED AND REVEALED: No change. Stable appearance of bilateral pneumonia. HIS TREATMENT COURSE INCLUDES: NORMAL SALINE AT 75 ML/HR, REMDESIVIR 100MG IV DAILY, FORTAZ 1G IV Q12H, LEVAQUIN 750MG IV Q48H, ALBUTEROL NEBS Q6H, BROVANA NEB TX BID, MUCOMYST IN NEBS Q6H, PULMICORT NEBS BID, KLONOPIN 0.5MG PO BID, ASCORBIC ACID 1500MG IV Q6H, LIPITOR 80MG PO HS, TESSALON PERLES 200MG PO TID, ZYRTEC 10MG PO DAILY, TUSSIONEX 5ML PO Q12H PRN, COLACE 100MG PO HS, LOVENOX 100MG BID, PEPCID 20MG PO BID, DIFLUCAN 100MG PO DAILY, ROBITUSSIN DM 10ML PO QID, IVERMECTIN- PHARMACY TO DOSE, ZOFRAN COCKTAIL Q8H PRN, GI COCKTAIL 15ML PO QID, MAGIC MOUTHWASH QID, MILK OF MAG BID PRN, MELATONIN 10MG PO HS, SOLU-MEDROL 125MG IV Q6H, SINGULAIR 10MG PO HS, PROTONIX 40MG PO DAILY, THIAMINE 200MG IV BID, ELIEZER-DUR 300MG PO BID, ZINC SULFATE 220MG PO DAILY, FLONASE 2 SPRAYS BID, SIMETHICONE 80MG PO TID, AND SCOPOLOMINE AT BEDTIME. WILL CONTINUE PATIENT ON BIPAP SUPPORT AND WEAN OXYGEN TOLERATED. OTHERWISE, CONTINUE CURRENT TREATMENT PLAN, MONITOR, AND FOLLOW UP LABS/IMAGING IN THE MORNING. CRITICAL CARE TIME SPENT ON CLINICAL ASSESSMENT, REVIEWING LABS AND IMAGING, DECISION MAKING, AND DOCUMENTATION GREATER THAN 75 MINUTES. Past Medical Family Social History Past Med/Fam/Surg Hx: No changes since H&P Allergies: Allergies No Known Drug Allergies Allergy (Verified 10/27/20 15:06) Review of Systems ROS: No change since H&P Vital Signs and I&O's Vital Signs: Temperature 97.1 F Pulse Rate [Left Radial] 104 Pulse Rate 83 Respiratory Rate 18 Blood Pressure [Left Arm] 198/93 Blood Pressure 118/73 O2 Sat by Pulse Oximetry 95 Intake and Output: Intake & Output 11/05/20 11/06/20 11/07/20 11/08/20 23:59 23:59 23:59 23:59 Intake Total 3202 / 3202 3605 / 3605 2310 / 2310 725 / 725 Output Total 2850 / 2850 2720 / 2720 2620 / 2620 400 / 400 Balance 352 / 352 885 / 885 -310 / -310 325 / 325 Physical Exam Oriented: Normal Eyes: Normal Ear: Normal Nose: Normal Throat: Normal Respiratory: Generalized and Diminished Cardiovascular: Normal : Normal Auscultation: Bowel Sounds: Normal Tenderness: Normal Skin: Normal Musculoskeletal: Normal Psychiatric: Normal Mood Description: Calm Affect: Normal Speech Pattern: Clear and Delayed Laboratory and Diagnostics Result Diagrams: 11/08/20 04:39 11/08/20 04:39 Labs: 10/27/20 15:29 Blood Blood Culture - Final 10/27/20 15:24 Blood Blood Culture - Final Laboratory WBC 15.9 X10^3/uL (3.6-10.0) H 11/08/20 04:39 RBC 5.15 X10^6/uL (4.7-6.0) 11/08/20 04:39 Hgb 14.2 g/dL (13.5-18.0) 11/08/20 04:39 Hct 43.3 % (42.0-54.0) 11/08/20 04:39 MCV 84.0 fL (80.0-100.0) 11/08/20 04:39 MCH 27.5 pg (27.0-34.0) 11/08/20 04:39 MCHC 32.7 g/dL (33.0-35.0) L 11/08/20 04:39 RDW 14.1 % (11.6-16.5) 11/08/20 04:39 Plt Count 245 X10^3/uL (150.0-450.0) 11/08/20 04:39 Plt Count Comment Adequate (ADEQUATE) 11/08/20 04:39 MPV 8.0 fL (7.4-11.0) 11/08/20 04:39 Neut % (Auto) 97.2 % (42.0-75.0) H 11/08/20 04:39 Lymph % (Auto) 1.2 % (21.0-51.0) L 11/08/20 04:39 [place] % (Auto) 1.5 % (0.0-13.0) 11/08/20 04:39 Eos % (Auto) 0.0 % (0.9-2.9) L 11/08/20 04:39 Baso % (Auto) 0.1 % (0.2-1.0) L 11/08/20 04:39 Neut # (Auto) 15.4 x10^3/uL (2.2-4.8) H 11/08/20 04:39 Lymph # (Auto) 0.2 X10^3/uL (1.3-2.9) L 11/08/20 04:39 [place] # (Auto) 0.2 x10^3/uL (0.3-0.8) L 11/08/20 04:39 Eos # (Auto) 0.0 x10^3/uL (0.0-0.2) 11/08/20 04:39 Baso # (Auto) 0.0 X10^3/uL (0.0-0.1) 11/08/20 04:39 Absolute Nucleated RBC 0.1 /100WBC 11/08/20 04:39 Total Counted 100 11/08/20 04:39 Neutrophils % (Manual) 93 % (39-76) H 11/08/20 04:39 Band Neutrophils % 2 % (0-10) 11/08/20 04:39 Lymphocytes % (Manual) 1 % (13-43) L 11/08/20 04:39 Monocytes % (Manual) 4 % (4-9) 11/08/20 04:39 Eosinophils % (Manual) 1 % (0-6) 10/27/20 14:48 Plt Morphology Comment Normal (NORMAL) 11/08/20 04:39 RBC Morphology Normal (NORMAL) 11/08/20 04:39 D-Dimer 3.19 ug/ml (0.0-0.57) H* 11/07/20 05:26 Sample Site R rad 11/08/20 05:58 ABG pH 7.550 (7.35-7.45) H 11/08/20 05:58 ABG pCO2 31.0 mmHg (35.0-45.0) L 11/08/20 05:58 ABG pO2 50.0 mmHg (80.0-100.0) L 11/08/20 05:58 ABG HCO3 27.1 mmol/L (22-26) H 11/08/20 05:58 ABG O2 Saturation 90.0 % (90-100) 11/08/20 05:58 ABG Base Excess 5.1 mmol/L (-2.0-2.0) H 11/08/20 05:58 Ramesh Test Poss 11/08/20 05:58 A-a Gradient 624.0 mmHg 11/08/20 05:58 FiO2 100.0 11/08/20 05:58 Blood Gas Comments Maude well kb 11/08/20 05:58 Sodium 138 mmol/L (136-145) 11/08/20 04:39 Corrected Sodium 140 mmol/L (136-145) 11/08/20 04:39 Potassium 3.5 mmol/L (3.5-5.1) 11/08/20 04:39 Chloride 102 mmol/L (98-107) 11/08/20 04:39 Carbon Dioxide 25.1 mmol/L (21-32) 11/08/20 04:39 BUN 20 mg/dL (7-18) H 11/08/20 04:39 Creatinine 1.09 mg/dL (0.70-1.30) 11/08/20 04:39 Est GFR (MDRD) Af Amer > 60 (>60) 11/08/20 04:39 Est GFR (MDRD) Non-Af > 60 (>60) 11/08/20 04:39 Glucose 179 mg/dL (65-99) H 11/08/20 04:39 POC Glucose (mg/dL) 174 mg/dL (65-99) H 11/07/20 11:53 Calcium 7.3 mg/dL (8.5-10.1) L 11/08/20 04:39 Corrected Calcium 8.7 mg/dL (8.5-10.1) 11/08/20 04:39 Magnesium 2.4 mg/dL (1.7-2.9) 11/03/20 01:51 Ferritin 563 ng/mL (26-388) H 11/02/20 04:44 Total Bilirubin 1.10 mg/dL (0.2-1.0) H 11/08/20 04:39 AST 36 Units/L (15-37) 11/08/20 04:39 ALT 57 Units/L (12-78) 11/08/20 04:39 Alkaline Phosphatase 130 Units/L (46-116) H 11/08/20 04:39 C-Reactive Protein 2.10 mg/L (0-3.0) 11/07/20 05:26 B-Natriuretic Peptide 57.9 pg/mL (0-79) 11/07/20 05:26 Total Protein 5.8 g/dL (6.4-8.2) L 11/08/20 04:39 Albumin 2.3 g/dL (3.4-5.0) L 11/08/20 04:39 Globulin 3.5 g/dL (2.5-4.5) 11/08/20 04:39 Albumin/Globulin Ratio 0.7 Ratio (1.1-2.1) L 11/08/20 04:39 Influenza Type A (PCR) Negative (NEGATIVE) 10/27/20 15:21 Influenza Type B (PCR) Negative (NEGATIVE) 10/27/20 15:21 Blood Type O POSITIVE 10/28/20 12:30 Plan (1) Pneumonia due to 2019 novel coronavirus: Status: Acute Plan: SUPPLEMENTAL OXYGEN, NORMAL SALINE AT 75 ML/HR, REMDESIVIR 100MG IV DAILY, FORTAZ 1G IV Q12H, LEVAQUIN 750MG IV Q48H, ALBUTEROL NEBS QID, MUC OMYST IN NEBS QID, BROVANA NEBS BID, PULMICORT NEBS BID, KLONOPIN 0.5MG PO BID, ASCORBIC ACID 1500MG IV Q6H, LIPITOR 80MG PO HS, TESSALON PERLES 200MG PO TID, ZYRTEC 10MG PO DAILY, TUSSIONEX 5ML PO Q12H PRN, COLACE 100MG PO HS, LOVENOX 100MG BID, PEPCID 20MG PO BID, DIFLUCAN 100MG PO DAILY, ROBITUSSIN DM 10ML PO QID, IVERMECTIN- PHARMACY TO DOSE, MAGIC MOUTHWASH QID, MILK OF MAG BID PRN, MELATONIN 10MG PO HS, SOLU-MEDROL 125MG IV Q6H, SINGULAIR 10MG PO HS, PROTONIX 40MG PO DAILY, THIAMINE 200MG IV BID, ELIEZER-DUR 300MG PO BID, AND ZINC SULFATE 220MG PO DAILY, ZOFRAN COCKTAIL Q8H PRN NAUSEA, GI COCKTAIL 15ML PO QID, SIMETUCIBE 80MG PO TID, SCOPOLOMINE T BEDTIME, FLONASE 2 SPRAYS BID (2) Hypoxia: Status: Acute
[2020-11-08] MEDS ORDERED: VISTARIL PO ONE (12:31)
[2020-11-08] MEDS: VISTARIL PO SCH ×2 (13:21→21:00)
[2020-11-08] MEDS: SINGULAIR TAB 10 MG PO SCH (21:48)
[2020-11-08] MEDS: PATIENT'S HOME MEDICATION PO SCH (21:50)
[2020-11-08] MEDS: MELATONIN PO SCH (21:51)
[2020-11-08] MEDS: LIPITOR TAB 80 MG PO SCH (21:51)
[2020-11-08] MEDS: SNACK - Diabetic Appropriate PO SCH (21:54)
[2020-11-09] MEDS: MUCOMYST 20% 200 MG/ML NEB SCH ×4 (00:20→17:35)
[2020-11-09] MEDS: PROVENTIL NEB TX 0.083% 2.5MG/ 3ML NEB SCH ×4 (00:20→17:35)
[2020-11-09] MEDS: VISTARIL PO SCH ×5 (01:00→19:15)
[2020-11-09] MEDS: ASCORBIC ACID INJ MULTI-DOSE VIAL 1,500 MG in NS 50 ML IV 50 ML IV SCH ×4 (02:13→21:00)
[2020-11-09] MEDS: SOLU-Medrol 125 MG VIAL IVP SCH ×4 (02:14→20:57)
[2020-11-09] MEDS: ZOFRAN INJ 4 MG VIAL IVP PRN ×2 (04:55→20:59)
[2020-11-09] MEDS ORDERED: ZOFRAN INJ 4 MG VIAL ONE (04:56)
[2020-11-09 05:34] LABS: ABG BASE EXCESS 2.4 mmol/L (-2.0-2.0); ABG HCO3 26.4 mmol/L (22-26)
[2020-11-09 05:35] LABS: ABG ALLEN TEST POS
[2020-11-09] MEDS: FORTAZ or TAZICEF VIAL INJ IV SCH ×3 (06:08→21:09)
[2020-11-09] MEDS: MYLICON TAB 80 MG CHEW PO SCH ×3 (06:09→21:09)
[2020-11-09] MEDS: TESSALON PERLES PO SCH ×3 (06:09→21:09)
[2020-11-09 06:52] LABS: BASOPHILS % (AUTO) 0.2 % (0.2-1.0); HEMATOCRIT 44.6 % (42.0-54.0); HEMOGLOBIN 14.5 g/dL (13.5-18.0); LYMPHOCYTES # (AUTO) 0.2 X10^3/uL (1.3-2.9); MEAN CORPUSCULAR HEMOGLOBIN 27.7 pg (27.0-34.0); MEAN CORPUSCULAR HGB CONC 32.5 g/dL (33.0-35.0); MEAN CORPUSCULAR VOLUME 85.2 fL (80.0-100.0); MEAN PLATELET VOLUME 8.1 fL (7.4-11.0); MONOCYTES # (AUTO) 0.3 x10^3/uL (0.3-0.8); MONOCYTES % (AUTO) 1.9 % (0.0-13.0); NEUTROPHILS # (AUTO) 17.3 x10^3/uL (2.2-4.8); NEUTROPHILS % (AUTO) 96.9 % (42.0-75.0); PLATELET COUNT 238 X10^3/uL (150.0-450.0); RED BLOOD COUNT 5.23 X10^6/uL (4.7-6.0); RED CELL DISTRIBUTION WIDTH 14.4 % (11.6-16.5); WHITE BLOOD COUNT 17.9 X10^3/uL (3.6-10.0)
[2020-11-09 07:36] LABS: BAND NEUTROPHILS % 1 % (0-10); PLATELET MORPHOLOGY COMMENT NORMAL (NORMAL)
[2020-11-09 07:40] LABS: ALANINE AMINOTRANSFERASE 64 Units/L (12-78); ALBUMIN 2.4 g/dL (3.4-5.0); ALKALINE PHOSPHATASE 125 Units/L (46-116); ASPARTATE AMINO TRANSFERASE 40 Units/L (15-37); BLOOD UREA NITROGEN 23 mg/dL (7-18); CALCIUM 7.1 mg/dL (8.5-10.1); CARBON DIOXIDE 23.9 mmol/L (21-32); CHLORIDE 103 mmol/L (98-107); COR CA(FOR HYPOALB) 8.4 mg/dL (8.5-10.1); COR NA(FOR HYPERGLY) 141 mmol/L (136-145); CREATININE 1.12 mg/dL (0.70-1.30); SODIUM 139 mmol/L (136-145); eGFR NON BLACK RACES > 60 (>60)
[2020-11-09 07:46] LABS: CKMB % 0.9 % (<4); CREATINE KINASE MB 4.2 ng/mL (0-4.0); TROPONIN I 0.19 ng/mL (0-1.5)
--- NOTE | 2020-11-09 08:02 | RAD ---
HISTORYCOVID PNEUMONIASTUDYCHEST, 1 [id number] cardiomediastinal silhouette is stable. Hypoventilatory exam with similar bilateral airspace opacities. The bony thorax appears intact.IMPRESSIONNo significant change.Electronically signed by: THOMAS GRAY (Nov 09, 2020 07:59:52)
[2020-11-09] MEDS: LEVSIN/MAALOX/LIDOC VISC PO SCH ×5 (08:17→20:54)
[2020-11-09 08:37] LABS: ABG ALLEN TEST POS; ABG HCO3 27.6 mmol/L (22-26)
[2020-11-09] MEDS: COZAAR PO SCH (09:31)
[2020-11-09] MEDS: DIFLUCAN PO SCH (09:32)
[2020-11-09] MEDS: FLONASE NASAL SPRAY ENOSTRIL SCH (09:32)
[2020-11-09] MEDS: KLONOPIN TAB 0.5 MG PO SCH ×2 (09:32→20:57)
[2020-11-09] MEDS: LOVENOX INJ 100 MG SYR SC SCH ×2 (09:33→20:56)
[2020-11-09] MEDS: LEVAQUIN PREMIX IV 500 MG 500 MG/100 ML BAG IV SCH (09:33)
[2020-11-09] MEDS: MAXZIDE 37.5/25 MG PO SCH (09:35)
[2020-11-09] MEDS: PEPCID TAB 20 MG PO SCH ×2 (09:35→20:56)
[2020-11-09] MEDS: PROTONIX TAB 40 MG PO SCH (09:35)
[2020-11-09] MEDS: MILK OF MAGNESIA PO SCH ×3 (09:35→20:58)
[2020-11-09] MEDS: THEO-DUR TAB 300 MG 12-HR PO SCH ×2 (09:36→20:55)
[2020-11-09] MEDS: ROBITUSSIN DM PO SCH ×4 (09:36→20:56)
[2020-11-09] MEDS: VITAMIN D3 125 mcg (5,000 UNITS) PO SCH (09:36)
[2020-11-09] MEDS: ZINC SULFATE PO SCH (09:37)
[2020-11-09] MEDS: ZyrTEC TAB 10 MG PO SCH (09:37)
[2020-11-09] MEDS: BROVANA IN SCH ×2 (09:55→20:15)
[2020-11-09] MEDS: PULMICORT NEB TX 0.5 MG NEB SCH ×2 (09:55→20:10)
--- NOTE | 2020-11-09 13:30 | PCM.PROG ---
Progress Note - Progress Note for Day of Date of Exam: 11/06/20 - Subjective Subjective: WAS ADMITTED FOR TREATMENT OF PNEUMONIA DUE TO COVID-19 AND HYPOXIA. TODAY, HE IS ALERT, SITTING ON THE SIDE OF THE BED ON MORNING ROUNDS. HE CONTINUES WITH COMPLAINT OF A NON-PRODUCTIVE COUGH, SHORTNESS OF BREATH, AND GENERALIZED WEAKNESS. HE REPORTS SLIGHT IMPROVEMENT IN SYMPTOMS SINCE YESTERDAY. HE IS CURRENTLY ON HEATED HIGH FLOW OXYGEN AT 84% FI02. HIS SATURATIONS HAVE BEEN 88-95% THIS MORNING AND THROUGHOUT THE NIGHT. HE HAS RECEIVED ONE UNIT OF CONVALESCENT PLASMA SINCE ADMISSION. ON EXAMINATION, HEART IS REGULAR IN RATE AND RHYTHM. BILATERAL LUNGS ARE NOTED WITH DIMINISHED LUNG SOUNDS THROUGHOUT. ABDOMEN IS ROUND, SOFT, AND NON-TENDER WITH NORMAL BOWEL SOUNDS NOTED IN ALL QUADRANTS. HIS VITALS THIS MORNING ARE: 98.1-86-22-86%HHF-138/68. LABS WERE OBTAINED. ABNORMAL LAB VALUES INCLUDE THE FOLLOWING: WBC 14.7, HGB 13.1, HCT 40.3, D-DIMER 2.82, BUN 20, GLUCOSE 184, CALCIUM 7.4, ALK PHOS 145, TOTAL PROTEIN 5.5, ALBUMIN 2.2. AN ABG WAS OBTAINED AND REVEALED: PH 7.480, PC02 40, P02 56, HC03 29.8, 02 SAT 91, BASE EXCESS 5.8, A-A GRADIENT 493, FI0 84. A CHEST XRAY WAS OBTAINED AND REVEALED: No change hypo inflation. No change diffuse bilateral infiltrates. Suspect small left pleural effusion. HE IS CURRENTLY RECEIVING NORMAL SALINE AT 75 ML/HR, REMDESIVIR 100MG IV DAILY, FORTAZ 1G IV Q12H, LEVAQUIN 750MG IV Q48H, ALBUTEROL NEBS Q6H, BROVANA NEB TX BID, MUCOMYST IN NEBS Q6H, PULMICORT NEBS BID, KLONOPIN 0.5MG PO BID, ASCORBIC ACID 1500MG IV Q6H, LIPITOR 80MG PO HS, TESSALON PERLES 200MG PO TID, ZYRTEC 10MG PO DAILY, TUSSIONEX 5ML PO Q12H, COLACE 100MG PO HS, LOVENOX 100MG BID, PEPCID 20MG PO BID, DIFLUCAN 100MG PO DAILY, ROBITUSSIN DM 10ML PO QID, IVERMECTIN- PHARMACY TO DOSE, ZOFRAN COCKTAIL Q8H PRN, GI COCKTAIL 15ML PO QID, MAGIC MOUTHWASH QID, MILK OF MAG BID PRN, MELATONIN 10MG PO HS, SOLU-MEDROL 125MG IV Q6H, SINGULAIR 10MG PO HS, PROTONIX 40MG PO DAILY, THIAMINE 200MG IV BID, ELIEZER-DUR 300MG PO BID, ZINC SULFATE 220MG PO DAILY, FLONASE 2 SPRAYS BID, SIMETHICONE 80MG PO TID, AND SCOPOLOMINE AT BEDTIME. WE WILL CONTINUE WITH CURRENT PLAN OF CARE TODAY. OTHERWISE, WE PLAN TO FOLLOW UP WITH AM LABS AND CONTINUE TO MONITOR. TIME SPENT ON CLINICAL ASSESSMENT, REVIEWING LABS AND IMAGING, DECISION MAKING, AND DOCUMENTATION GREATER THAN 75 MINUTES. - Past Medical Family Social History Past Med/Fam/Surg Hx: No changes since H&P Allergies: Allergies No Known Drug Allergies Allergy (Verified 10/27/20 15:06) - Review of Systems ROS: No change since H&P - Vital Signs and I&O's Vital Signs: Temperature 98.1 F Pulse Rate [Left Radial] 75 Pulse Rate 96 Respiratory Rate 34 Blood Pressure [Left Arm] 171/83 Blood Pressure 118/73 O2 Sat by Pulse Oximetry 96 Intake and Output: Intake & Output 11/07/20 11/08/20 11/09/20 11/10/20 11:59 11:59 11:59 11:59 Intake Total 3050 / 3050 2735 / 2735 360 / 360 Output Total 2560 / 2560 2680 / 2680 3600 / 3600 Balance 490 / 490 55 / 55 -3240 / -3240 - Physical Exam Oriented: Normal Eyes: Normal Ear: Normal Nose: Normal Throat: Normal Respiratory: Generalized, Diminished Cardiovascular: Normal : Normal Auscultation: Bowel Sounds: Normal Palpation: Normal Tenderness: Normal Skin: Normal Musculoskeletal: Normal Psychiatric: Normal Mood Description: Calm Affect: Normal Speech Pattern: Clear, Delayed - Laboratory and Diagnostics Result Diagrams: 11/09/20 05:42 11/09/20 05:42 Labs: 10/27/20 15:29 Blood Blood Culture - Final 10/27/20 15:24 Blood Blood Culture - Final Laboratory WBC 17.9 X10^3/uL (3.6-10.0) H 11/09/20 05:42 RBC 5.23 X10^6/uL (4.7-6.0) 11/09/20 05:42 Hgb 14.5 g/dL (13.5-18.0) 11/09/20 05:42 Hct 44.6 % (42.0-54.0) 11/09/20 05:42 MCV 85.2 fL (80.0-100.0) 11/09/20 05:42 MCH 27.7 pg (27.0-34.0) 11/09/20 05:42 MCHC 32.5 g/dL (33.0-35.0) L 11/09/20 05:42 RDW 14.4 % (11.6-16.5) 11/09/20 05:42 Plt Count 238 X10^3/uL (150.0-450.0) 11/09/20 05:42 Plt Count Comment Adequate (ADEQUATE) 11/09/20 05:42 MPV 8.1 fL (7.4-11.0) 11/09/20 05:42 Neut % (Auto) 96.9 % (42.0-75.0) H 11/09/20 05:42 Lymph % (Auto) 1.0 % (21.0-51.0) L 11/09/20 05:42 [place] % (Auto) 1.9 % (0.0-13.0) 11/09/20 05:42 Eos % (Auto) 0.0 % (0.9-2.9) L 11/09/20 05:42 Baso % (Auto) 0.2 % (0.2-1.0) 11/09/20 05:42 Neut # (Auto) 17.3 x10^3/uL (2.2-4.8) H 11/09/20 05:42 Lymph # (Auto) 0.2 X10^3/uL (1.3-2.9) L 11/09/20 05:42 [place] # (Auto) 0.3 x10^3/uL (0.3-0.8) 11/09/20 05:42 Eos # (Auto) 0.0 x10^3/uL (0.0-0.2) 11/09/20 05:42 Baso # (Auto) 0.0 X10^3/uL (0.0-0.1) 11/09/20 05:42 Absolute Nucleated RBC 0.1 /100WBC 11/09/20 05:42 Total Counted 100 11/09/20 05:42 Neutrophils % (Manual) 96 % (39-76) H 11/09/20 05:42 Band Neutrophils % 1 % (0-10) 11/09/20 05:42 Lymphocytes % (Manual) Not Reportable 11/09/20 05:42 Monocytes % (Manual) 3 % (4-9) L 11/09/20 05:42 Eosinophils % (Manual) 1 % (0-6) 10/27/20 14:48 Plt Morphology Comment Normal (NORMAL) 11/09/20 05:42 RBC Morphology Normal (NORMAL) 11/09/20 05:42 D-Dimer 2.81 ug/ml (0.0-0.57) H* 11/09/20 05:42 Sample Site Rr 11/09/20 08:26 ABG pH 7.530 (7.35-7.45) H 11/09/20 08:26 ABG pCO2 33.0 mmHg (35.0-45.0) L 11/09/20 08:26 ABG pO2 62.0 mmHg (80.0-100.0) L 11/09/20 08:26 ABG HCO3 27.6 mmol/L (22-26) H 11/09/20 08:26 ABG O2 Saturation 94.0 % (90-100) 11/09/20 08:26 ABG Base Excess 5.0 mmol/L (-2.0-2.0) H 11/09/20 08:26 Ramesh Test Pos 11/09/20 08:26 A-a Gradient 610.0 mmHg 11/09/20 08:26 FiO2 100.0 11/09/20 08:26 Blood Gas Comments Pt [email or web address] 11/09/20 08:26 Sodium 139 mmol/L (136-145) 11/09/20 05:42 Corrected Sodium 141 mmol/L (136-145) 11/09/20 05:42 Potassium 3.7 mmol/L (3.5-5.1) 11/09/20 05:42 Chloride 103 mmol/L (98-107) 11/09/20 05:42 Carbon Dioxide 23.9 mmol/L (21-32) 11/09/20 05:42 BUN 23 mg/dL (7-18) H 11/09/20 05:42 Creatinine 1.12 mg/dL (0.70-1.30) 11/09/20 05:42 Est GFR (MDRD) Af Amer > 60 (>60) 11/09/20 05:42 Est GFR (MDRD) Non-Af > 60 (>60) 11/09/20 05:42 Glucose 177 mg/dL (65-99) H 11/09/20 05:42 POC Glucose (mg/dL) 174 mg/dL (65-99) H 11/07/20 11:53 Calcium 7.1 mg/dL (8.5-10.1) L 11/09/20 05:42 Corrected Calcium 8.4 mg/dL (8.5-10.1) L 11/09/20 05:42 Magnesium 2.4 mg/dL (1.7-2.9) 11/03/20 01:51 Ferritin 633 ng/mL (26-388) H 11/09/20 05:42 Total Bilirubin 1.20 mg/dL (0.2-1.0) H 11/09/20 05:42 AST 40 Units/L (15-37) H 11/09/20 05:42 ALT 64 Units/L (12-78) 11/09/20 05:42 Alkaline Phosphatase 125 Units/L (46-116) H 11/09/20 05:42 Creatine Kinase 476 Units/L (39-308) H 11/09/20 05:42 CK-MB (CK-2) 4.2 ng/mL (0-4.0) H* 11/09/20 05:42 CK/CKMB % Calc 0.9 % (<4) 11/09/20 05:42 Troponin I 0.19 ng/mL (0-1.5) 11/09/20 05:42 C-Reactive Protein 0.90 mg/L (0-3.0) 11/09/20 05:42 B-Natriuretic Peptide 54.3 pg/mL (0-79) 11/09/20 05:42 Total Protein 6.0 g/dL (6.4-8.2) L 11/09/20 05:42 Albumin 2.4 g/dL (3.4-5.0) L 11/09/20 05:42 Globulin 3.6 g/dL (2.5-4.5) 11/09/20 05:42 Albumin/Globulin Ratio 0.7 Ratio (1.1-2.1) L 11/09/20 05:42 Influenza Type A (PCR) Negative (NEGATIVE) 10/27/20 15:21 Influenza Type B (PCR) Negative (NEGATIVE) 10/27/20 15:21 Blood Type O POSITIVE 10/28/20 12:30 - Plan (1) Pneumonia due to 2019 novel coronavirus Status: Acute Plan: SUPPLEMENTAL OXYGEN, NORMAL SALINE AT 75 ML/HR, FORTAZ 1G IV Q12H, LEVAQUIN 750MG IV Q48H, ALBUTEROL NEBS QID, MUCOMYST IN NEBS QID, BROVANA NEBS BID, PULMICORT NEBS BID, KLONOPIN 0.5MG PO BID, ASCORBIC ACID 1500MG IV Q6H, LIPITOR 80MG PO HS, TESSALON PERLES 200MG PO TID, ZYRTEC 10MG PO DAILY, TUSSIONEX 5ML PO Q12H PRN, COLACE 100MG PO HS, LOVENOX 100MG BID, PEPCID 20MG PO BID, DIFLUCAN 100MG PO DAILY, ROBITUSSIN DM 10ML PO QID, IVERMECTIN- PHARMACY TO DOSE, MAGIC MOUTHWASH QID, MILK OF MAG BID PRN, MELATONIN 10MG PO HS, SOLU- MEDROL 125MG IV Q6H, SINGULAIR 10MG PO HS, PROTONIX 40MG PO DAILY, THIAMINE 200M G IV BID, ELIEZER-DUR 300MG PO BID, AND ZINC SULFATE 220MG PO DAILY, ZOFRAN COCKTAIL Q8H PRN NAUSEA, GI COCKTAIL 15ML PO QID, SIMETUCIBE 80MG PO TID, SCOPOLOMINE AT BEDTIME, FLONASE 2 SPRAYS BID (2) Hypoxia Status: Acute
[2020-11-09 13:47] LABS: CKMB % 0.9 % (<4); CREATINE KINASE MB 3.6 ng/mL (0-4.0); TROPONIN I 0.18 ng/mL (0-1.5)
[2020-11-09] MEDS ORDERED: NS 100 ML IV + SPIKE MINIBAG* 100 ML IV ONE (14:22)
[2020-11-09] MEDS: NS + KCL 20 MEQ/L 1,000 ML IV SCH ×2 (16:41→22:11)
--- NOTE | 2020-11-09 17:57 | PCM.PROG ---
Progress Note - Progress Note for Day of Date of Exam: 11/09/20 - Subjective Subjective: WAS ADMITTED FOR TREATMENT OF PNEUMONIA DUE TO COVID-19 AND HYPOXIA. TODAY, HE IS ALERT, SITTING ON THE SIDE OF THE BED ON MORNING ROUNDS. HE CONTINUES WITH COMPLAINT OF A NON-PRODUCTIVE COUGH, SHORTNESS OF BREATH, AND GENERALIZED WEAKNESS. HE WAS PLACED ON THE BIPAP OVER THE WEEKEND. HE IS CURRENTLY ON 100% FI02. HE HAD AN EPISODE OF INCREASED SHORTNESS OF BREATH AND COUGH THIS MORNING. HIS SATURATIONS HAVE BEEN 90s THIS MORNING AND THROUGHOUT THE NIGHT. HE HAS RECEIVED ONE UNIT OF CONVALESCENT PLASMA SINCE ADMISSION. ON EXAMINATION, HEART IS REGULAR IN RATE AND RHYTHM. BILATERAL LUNGS ARE NOTED WITH DIMINISHED LUNG SOUNDS THROUGHOUT. ABDOMEN IS ROUND, SOFT, AND NON-TENDER WITH NORMAL BOWEL SOUNDS NOTED IN ALL QUADRANTS. HIS VITALS THIS MORNING ARE: 97.8-82-28-96%BIPAP-198/86. LABS WERE OBTAINED. ABNORMAL LAB VALUES INCLUDE THE FOLLOWING: WBC 17.9, D-DIMER 2.81, BUN 23, GLUCOSE 177, CALCIUM 7.1, FERRITIN 633, TOTAL BILI 1.20, AST 40, ALK PHOS 125, CREATINE KINASE 476, CK-MB 4.2, TOTAL PROTEIN 6.0, ALBUMIN 2.4. AN ABG WAS OBTAINED AND REVEALED: PH 7.480, PC02 40, P02 56, HC03 29.8, 02 SAT 91, BASE EXCESS 5.8, A-A GRADIENT 493, FI0 84. A CHEST XRAY WAS OBTAINED AND REVEALED: cardiomediastinal silhouette is stable. Hypoventilatory exam with similar bilateral airspace opacities. The bony thorax appears intact. HE IS CURRENTLY RECEIVING NORMAL SALINE AT 75 ML/HR, R EMDESIVIR 100MG IV DAILY, FORTAZ 1G IV Q12H, LEVAQUIN 750MG IV Q48H, ALBUTEROL NEBS Q6H, BROVANA NEB TX BID, MUCOMYST IN NEBS Q6H, PULMICORT NEBS BID, KLONOPIN 0.5MG PO BID, ASCORBIC ACID 1500MG IV Q6H, LIPITOR 80MG PO HS, TESSALON PERLES 200MG PO TID, VISTARIL 25MG PO Q6H, ZYRTEC 10MG PO DAILY, TUSSIONEX 5ML PO Q12H, COLACE 100MG PO HS, LOVENOX 100MG BID, PEPCID 20MG PO BID, DIFLUCAN 100MG PO RONAL LY, ROBITUSSIN DM 10ML PO QID, IVERMECTIN- PHARMACY TO DOSE, ZOFRAN COCKTAIL Q8H PRN, GI COCKTAIL 15ML PO QID, MAGIC MOUTHWASH QID, MILK OF MAG BID PRN, MELATONIN 10MG PO HS, SOLU-MEDROL 125MG IV Q6H, SINGULAIR 10MG PO HS, PROTONIX 40MG PO DAILY, THIAMINE 200MG IV BID, ELIEZER-DUR 300MG PO BID, ZINC SULFATE 220MG PO DAILY, FLONASE 2 SPRAYS BID, SIMETHICONE 80MG PO TID, AND SCOPOLOMINE AT BEDTIME. WE WILL CONTINUE WITH CURRENT PLAN OF CARE TODAY. OTHERWISE, WE PLAN TO FOLLOW UP WITH AM LABS AND CONTINUE TO MONITOR. TIME SPENT ON CLINICAL ASSESSMENT, REVIEWING LABS AND IMAGING, DECISION MAKING, AND DOCUMENTATION GREATER THAN 75 MINUTES. - Past Medical Family Social History Past Med/Fam/Surg Hx: No changes since H&P Allergies: Allergies No Known Drug Allergies Allergy (Verified 10/27/20 15:06) - Review of Systems ROS: No change since H&P - Vital Signs and I&O's Vital Signs: Temperature 98.1 F Pulse Rate [Left Radial] 75 Pulse Rate 96 Respiratory Rate 24 Blood Pressure [Left Arm] 171/83 Blood Pressure 118/73 O2 Sat by Pulse Oximetry 96 Intake and Output: Intake & Output 11/07/20 11/08/20 11/09/20 11/10/20 11:59 11:59 11:59 11:59 Intake Total 3050 / 3050 2735 / 2735 360 / 360 660 / 660 Output Total 2560 / 2560 2680 / 2680 3600 / 3600 1020 / 1020 Balance 490 / 490 55 / 55 -3240 / -3240 -360 / -360 - Physical Exam Oriented: Normal Eyes: Normal Ear: Normal Nose: Normal Throat: Normal Respiratory: Generalized, Diminished Cardiovascular: Normal : Normal Auscultation: Bowel Sounds: Normal Palpation: Normal Tenderness: Normal Skin: Normal Musculoskeletal: Normal Psychiatric: Normal Mood Description: Calm Affect: Normal Speech Pattern: Clear, Delayed - Laboratory and Diagnostics Result Diagrams: 11/09/20 05:42 11/09/20 05:42 Labs: 10/27/20 15:29 Blood Blood Culture - Final 10/27/20 15:24 Blood Blood Culture - Final Laboratory WBC 17.9 X10^3/uL (3.6-10.0) H 11/09/20 05:42 RBC 5.23 X10^6/uL (4.7-6.0) 11/09/20 05:42 Hgb 14.5 g/dL (13.5-18.0) 11/09/20 05:42 Hct 44.6 % (42.0-54.0) 11/09/20 05:42 MCV 85.2 fL (80.0-100.0) 11/09/20 05:42 MCH 27.7 pg (27.0-34.0) 11/09/20 05:42 MCHC 32.5 g/dL (33.0-35.0) L 11/09/20 05:42 RDW 14.4 % (11.6-16.5) 11/09/20 05:42 Plt Count 238 X10^3/uL (150.0-450.0) 11/09/20 05:42 Plt Count Comment Adequate (ADEQUATE) 11/09/20 05:42 MPV 8.1 fL (7.4-11.0) 11/09/20 05:42 Neut % (Auto) 96.9 % (42.0-75.0) H 11/09/20 05:42 Lymph % (Auto) 1.0 % (21.0-51.0) L 11/09/20 05:42 [place] % (Auto) 1.9 % (0.0-13.0) 11/09/20 05:42 Eos % (Auto) 0.0 % (0.9-2.9) L 11/09/20 05:42 Baso % (Auto) 0.2 % (0.2-1.0) 11/09/20 05:42 Neut # (Auto) 17.3 x10^3/uL (2.2-4.8) H 11/09/20 05:42 Lymph # (Auto) 0.2 X10^3/uL (1.3-2.9) L 11/09/20 05:42 [place] # (Auto) 0.3 x10^3/uL (0.3-0.8) 11/09/20 05:42 Eos # (Auto) 0.0 x10^3/uL (0.0-0.2) 11/09/20 05:42 Baso # (Auto) 0.0 X10^3/uL (0.0-0.1) 11/09/20 05:42 Absolute Nucleated RBC 0.1 /100WBC 11/09/20 05:42 Total Counted 100 11/09/20 05:42 Neutrophils % (Manual) 96 % (39-76) H 11/09/20 05:42 Band Neutrophils % 1 % (0-10) 11/09/20 05:42 Lymphocytes % (Manual) Not Reportable 11/09/20 05:42 Monocytes % (Manual) 3 % (4-9) L 11/09/20 05:42 Eosinophils % (Manual) 1 % (0-6) 10/27/20 14:48 Plt Morphology Comment Normal (NORMAL) 11/09/20 05:42 RBC Morphology Normal (NORMAL) 11/09/20 05:42 D-Dimer 2.81 ug/ml (0.0-0.57) H* 11/09/20 05:42 Sample Site Rr 11/09/20 08:26 ABG pH 7.530 (7.35-7.45) H 11/09/20 08:26 ABG pCO2 33.0 mmHg (35.0-45.0) L 11/09/20 08:26 ABG pO2 62.0 mmHg (80.0-100.0) L 11/09/20 08:26 ABG HCO3 27.6 mmol/L (22-26) H 11/09/20 08:26 ABG O2 Saturation 94.0 % (90-100) 11/09/20 08:26 ABG Base Excess 5.0 mmol/L (-2.0-2.0) H 11/09/20 08:26 Ramesh Test Pos 11/09/20 08:26 A-a Gradient 610.0 mmHg 11/09/20 08:26 FiO2 100.0 11/09/20 08:26 Blood Gas Comments [email or web address] 11/09/20 08:26 Sodium 139 mmol/L (136-145) 11/09/20 05:42 Corrected Sodium 141 mmol/L (136-145) 11/09/20 05:42 Potassium 3.7 mmol/L (3.5-5.1) 11/09/20 05:42 Chloride 103 mmol/L (98-107) 11/09/20 05:42 Carbon Dioxide 23.9 mmol/L (21-32) 11/09/20 05:42 BUN 23 mg/dL (7-18) H 11/09/20 05:42 Creatinine 1.12 mg/dL (0.70-1.30) 11/09/20 05:42 Est GFR (MDRD) Af Amer > 60 (>60) 11/09/20 05:42 Est GFR (MDRD) Non-Af > 60 (>60) 11/09/20 05:42 Glucose 177 mg/dL (65-99) H 11/09/20 05:42 POC Glucose (mg/dL) 174 mg/dL (65-99) H 11/07/20 11:53 Calcium 7.1 mg/dL (8.5-10.1) L 11/09/20 05:42 Corrected Calcium 8.4 mg/dL (8.5-10.1) L 11/09/20 05:42 Magnesium 2.4 mg/dL (1.7-2.9) 11/03/20 01:51 Ferritin 633 ng/mL (26-388) H 11/09/20 05:42 Total Bilirubin 1.20 mg/dL (0.2-1.0) H 11/09/20 05:42 AST 40 Units/L (15-37) H 11/09/20 05:42 ALT 64 Units/L (12-78) 11/09/20 05:42 Alkaline Phosphatase 125 Units/L (46-116) H 11/09/20 05:42 Creatine Kinase 414 Units/L (39-308) H 11/09/20 12:44 CK-MB (CK-2) 3.6 ng/mL (0-4.0) 11/09/20 12:44 CK/CKMB % Calc 0.9 % (<4) 11/09/20 12:44 Troponin I 0.18 ng/mL (0-1.5) 11/09/20 12:44 C-Reactive Protein 0.90 mg/L (0-3.0) 11/09/20 05:42 B-Natriuretic Peptide 54.3 pg/mL (0-79) 11/09/20 05:42 Total Protein 6.0 g/dL (6.4-8.2) L 11/09/20 05:42 Albumin 2.4 g/dL (3.4-5.0) L 11/09/20 05:42 Globulin 3.6 g/dL (2.5-4.5) 11/09/20 05:42 Albumin/Globulin Ratio 0.7 Ratio (1.1-2.1) L 11/09/20 05:42 Influenza Type A (PCR) Negative (NEGATIVE) 10/27/20 15:21 Influenza Type B (PCR) Negative (NEGATIVE) 10/27/20 15:21 Blood Type O POSITIVE 10/28/20 12:30 - Plan (1) Pneumonia due to 2019 novel coronavirus Status: Acute Plan: SUPPLEMENTAL OXYGEN, NORMAL SALINE AT 75 ML/HR, FORTAZ 1G IV Q12H, LEVAQUIN 750MG IV Q48H, ALBUTEROL NEBS QID, MUCOMYST IN NEBS QID, BROVANA NEBS BID, PULMICORT NEBS BID, KLONOPIN 0.5MG PO BID, ASCORBIC ACID 1500MG IV Q6H, LIPITOR 80MG PO HS, TESSALON PERLES 200MG PO TID, ZYRTEC 10MG PO DAILY, TUSSIONEX 5ML PO Q12H PRN, COLACE 100MG PO HS, LOVENOX 100MG BID, PEPCID 20MG PO BID, DIFLUCAN 100MG PO DAILY, ROBITUSSIN DM 10ML PO QID, IVERMECTIN- PHARMACY TO DOSE, MAGIC MOUTHWASH QID, MILK OF MAG BID PRN, MELATONIN 10MG PO HS, SOLU- MEDROL 125MG IV Q6H, SINGULAIR 10MG PO HS, PROTONIX 40MG PO DAILY, THIAMINE 200MG IV BID, ELIEZER-DUR 300MG PO BID, AND ZINC SULFATE 220MG PO DAILY, ZOFRAN COCKTAIL Q8H PRN NAUSEA, GI COCKTAIL 15ML PO QID, SIMETUCIBE 80MG PO TID, SCOPOLOMINE AT BEDTIME, FLONASE 2 SPRAYS BID (2) Hypoxia Status: Acute
[2020-11-09 20:14] LABS: TROPONIN I 0.16 ng/mL (0-1.5)
[2020-11-09] MEDS: SINGULAIR TAB 10 MG PO SCH (20:55)
[2020-11-09] MEDS: MELATONIN PO SCH (20:57)
[2020-11-09] MEDS: SNACK - Diabetic Appropriate PO SCH (20:58)
[2020-11-09] MEDS: LIPITOR TAB 80 MG PO SCH (20:59)
[2020-11-09] MEDS: PATIENT'S HOME MEDICATION PO SCH (23:26)
[2020-11-10] MEDS: MUCOMYST 20% 200 MG/ML NEB SCH ×4 (00:03→17:45)
[2020-11-10] MEDS: PROVENTIL NEB TX 0.083% 2.5MG/ 3ML NEB SCH ×4 (00:03→17:45)
[2020-11-10] MEDS: VISTARIL PO SCH ×4 (01:42→22:00)
[2020-11-10] MEDS: SOLU-Medrol 125 MG VIAL IVP SCH ×4 (02:05→22:00)
[2020-11-10] MEDS: ASCORBIC ACID INJ MULTI-DOSE VIAL 1,500 MG in NS 50 ML IV 50 ML IV SCH ×2 (02:26→09:37)
[2020-11-10] MEDS ORDERED: MORPHINE SULFATE INJ 2 MG INJ ONE (05:08)
[2020-11-10] MEDS ORDERED: MORPHINE SULFATE INJ 2 MG INJ IVP ONE (05:16)
[2020-11-10 05:23] LABS: ABG ALLEN TEST POS; ABG BASE EXCESS 1.6 mmol/L (-2.0-2.0); ABG HCO3 24.4 mmol/L (22-26)
--- NOTE | 2020-11-10 05:41 | RAD ---
PROCEDURE: Chest X-ray 1 View .HISTORY: Short of breath.TECHNIQUE: AP view .COMPARISON: 11/09/2020.TECHNICAL QUALITY: Satisfactory .FINDINGS:Unremarkable cardiomediastinal silhouette.Normal central vascularity.Continued patchy consolidation lung bases left greater than right that is unchanged with no pleural fluid or pneumothorax.IMPRESSION:Unchanged bibasilar pneumonia greatest on the left.Electronically signed by: Reji Ballesteros (Nov 10, 2020 05:40:07)
[2020-11-10] MEDS: MYLICON TAB 80 MG CHEW PO SCH ×3 (06:05→22:30)
[2020-11-10] MEDS: FORTAZ or TAZICEF VIAL INJ IV SCH ×3 (06:28→22:30)
[2020-11-10] MEDS: TESSALON PERLES PO SCH ×3 (06:29→22:29)
[2020-11-10 06:38] LABS: BASOPHILS % (AUTO) 0.2 % (0.2-1.0); HEMATOCRIT 40.9 % (42.0-54.0); HEMOGLOBIN 13.2 g/dL (13.5-18.0); LYMPHOCYTES # (AUTO) 0.2 X10^3/uL (1.3-2.9); LYMPHOCYTES % (AUTO) 1.1 % (21.0-51.0); MEAN CORPUSCULAR HEMOGLOBIN 27.4 pg (27.0-34.0); MEAN CORPUSCULAR HGB CONC 32.2 g/dL (33.0-35.0); MEAN CORPUSCULAR VOLUME 85.1 fL (80.0-100.0); MEAN PLATELET VOLUME 8.2 fL (7.4-11.0); MONOCYTES # (AUTO) 0.4 x10^3/uL (0.3-0.8); MONOCYTES % (AUTO) 2.2 % (0.0-13.0); NEUTROPHILS # (AUTO) 18.9 x10^3/uL (2.2-4.8); NEUTROPHILS % (AUTO) 96.5 % (42.0-75.0); PLATELET COUNT 207 X10^3/uL (150.0-450.0); RED CELL DISTRIBUTION WIDTH 14.5 % (11.6-16.5); WHITE BLOOD COUNT 19.5 X10^3/uL (3.6-10.0)
[2020-11-10] MEDS: ZOFRAN INJ 4 MG VIAL IVP PRN ×2 (06:42→19:52)
[2020-11-10 07:11] LABS: BILIRUBIN,URINE NEGATIVE (NEGATIVE); BLOOD/HEMOGLOBIN,URINE NEGATIVE (NEGATIVE); GLUCOSE, URINE NEGATIVE (NEGATIVE); KETONES,URINE NEGATIVE (NEGATIVE); LEUKOCYTE ESTERASE ,URINE NEGATIVE (NEGATIVE); NITRITES,URINE NEGATIVE (NEGATIVE); PROTEIN,URINE 1+ (NEGATIVE); UROBILINOGEN,URINE NORMAL (NORMAL)
[2020-11-10 07:24] LABS: APPEARANCE,URINE CLEAR (CLEAR); COLOR,URINE YELLOW (YELLOW)
[2020-11-10 07:40] LABS: ALANINE AMINOTRANSFERASE 63 Units/L (12-78); ALBUMIN 2.2 g/dL (3.4-5.0); ALKALINE PHOSPHATASE 84 Units/L (46-116); ASPARTATE AMINO TRANSFERASE 37 Units/L (15-37); BLOOD UREA NITROGEN 28 mg/dL (7-18); CALCIUM 6.9 mg/dL (8.5-10.1); CARBON DIOXIDE 23.3 mmol/L (21-32); CHLORIDE 106 mmol/L (98-107); COR CA(FOR HYPOALB) 8.3 mg/dL (8.5-10.1); COR NA(FOR HYPERGLY) 143 mmol/L (136-145); CREATININE 1.16 mg/dL (0.70-1.30); SODIUM 140 mmol/L (136-145); TOTAL PROTEIN 5.5 g/dL (6.4-8.2); eGFR NON BLACK RACES > 60 (>60)
[2020-11-10 07:41] LABS: BAND NEUTROPHILS % 1 % (0-10); PLATELET MORPHOLOGY COMMENT NORMAL (NORMAL)
[2020-11-10 07:53] LABS: BACTERIA,URINE NEGATIVE /HPF (NEGATIVE); RBC,URINE 0-2 /HPF (0-3); SQUAMOUS EPITHELIAL CELL,UR RARE /HPF (NEGATIVE)
[2020-11-10 08:18] LABS: ABG BASE EXCESS 3.6 mmol/L (-2.0-2.0); ABG HCO3 26.3 mmol/L (22-26)
[2020-11-10] MEDS ORDERED: MORPHINE SULFATE JET NEB NEB SCH (08:45)
[2020-11-10] MEDS: THEO-DUR TAB 300 MG 12-HR PO SCH ×2 (09:37→22:29)
[2020-11-10] MEDS: COZAAR PO SCH (09:37)
[2020-11-10] MEDS: ZINC SULFATE PO SCH (09:39)
[2020-11-10] MEDS: ROBITUSSIN DM PO SCH ×4 (09:39→22:29)
[2020-11-10] MEDS: ZyrTEC TAB 10 MG PO SCH (09:39)
[2020-11-10] MEDS: PEPCID TAB 20 MG PO SCH ×2 (09:40→22:00)
[2020-11-10] MEDS: VITAMIN D3 125 mcg (5,000 UNITS) PO SCH (09:40)
[2020-11-10] MEDS: MILK OF MAGNESIA PO SCH ×2 (09:40→22:33)
[2020-11-10] MEDS: PROTONIX TAB 40 MG PO SCH (09:41)
[2020-11-10] MEDS: LEVSIN/MAALOX/LIDOC VISC PO SCH ×4 (09:41→22:31)
[2020-11-10] MEDS: MAXZIDE 37.5/25 MG PO SCH (09:41)
[2020-11-10] MEDS: KLONOPIN TAB 0.5 MG PO SCH ×2 (09:42→22:31)
[2020-11-10] MEDS: LOVENOX INJ 100 MG SYR SC SCH ×2 (09:42→22:31)
[2020-11-10] MEDS: LEVAQUIN PREMIX IV 500 MG 500 MG/100 ML BAG IV SCH (09:42)
[2020-11-10] MEDS: DIFLUCAN PO SCH (09:43)
[2020-11-10] MEDS: FLONASE NASAL SPRAY ENOSTRIL SCH (09:43)
[2020-11-10] MEDS ORDERED: NS 500 ML IV 500 ML IV ONE (09:59)
[2020-11-10] MEDS: PULMICORT NEB TX 0.5 MG NEB SCH ×2 (10:09→22:06)
[2020-11-10] MEDS: BROVANA IN SCH ×2 (10:09→21:56)
[2020-11-10] MEDS ORDERED: NS 100 ML IV + SPIKE MINIBAG* 100 ML IV ONE (13:03)
[2020-11-10] MEDS: MORPHINE SULFATE JET NEB NEB SCH ×2 (13:40→17:45)
[2020-11-10] MEDS: MORPHINE SULFATE INJ 2 MG INJ IVP PRN ×2 (14:29→20:55)
[2020-11-10] MEDS: NS + KCL 20 MEQ/L 1,000 ML IV SCH (14:30)
[2020-11-10] MEDS ORDERED: CLINIMIX 5 %/20 % 1,000 ML with MVI INJ (ADULT) 10 ML, TRACE ELEMENTS INJ 10 ML, TPN EL... IV SCH ×5 (16:00)
[2020-11-10] MEDS: CLINIMIX 5 %/20 % 1,000 ML with MVI INJ (ADULT) 10 ML, TRACE ELEMENTS INJ 10 ML, TPN EL... IV SCH ×12 (18:38→21:34)
[2020-11-10] MEDS: SNACK - Diabetic Appropriate PO SCH (21:33)
[2020-11-10] MEDS: SINGULAIR TAB 10 MG PO SCH (22:00)
[2020-11-10] MEDS: LIPITOR TAB 80 MG PO SCH (22:00)
[2020-11-10] MEDS: MELATONIN PO SCH (22:30)
[2020-11-10] MEDS ORDERED: QUELICIN (OR ANECTINE) ONE (23:16)
[2020-11-10] MEDS ORDERED: VERSED ONE (23:16)
[2020-11-10] MEDS ORDERED: DIPRIVAN PREMIX 1 GRAM IV 1,000 MG/100 ML VIAL ONE (23:37)
[2020-11-10] MEDS ORDERED: MORPHINE SULFATE PCA 30 MG ONE (23:42)
[2020-11-10] MEDS: MORPHINE SULFATE PCA 30 MG IVP PRN (23:50)
[2020-11-11] MEDS: MORPHINE SULFATE PCA 30 MG IVP PRN ×3 (00:15→05:15)
[2020-11-11] MEDS ORDERED: NORCURON INJ 10 MG VIAL ONE (00:30)
[2020-11-11] MEDS ORDERED: NS 50 ML IV 50 ML IV ONE (00:31)
[2020-11-11 00:36] LABS: ABG BASE EXCESS -5.7 mmol/L (-2.0-2.0); ABG HCO3 22.5 mmol/L (22-26)
[2020-11-11] MEDS: PATIENT'S HOME MEDICATION PO SCH (01:11)
[2020-11-11] MEDS ORDERED: DIPRIVAN PREMIX 1 GRAM IV 1,000 MG/100 ML VIAL IV PRN (01:16)
[2020-11-11] MEDS ORDERED: NORCURON INJ 10 MG VIAL 50 MG in NS 50 ML IV 50 ML IV PRN (01:16)
[2020-11-11] MEDS ORDERED: VERSED IVP ONE (01:16)
[2020-11-11] MEDS ORDERED: QUELICIN (OR ANECTINE) IVP ONE (01:16)
--- NOTE | 2020-11-11 01:17 | RAD ---
PROCEDURE: Chest X-ray 1 View .HISTORY: Endotracheal tube placement.TECHNIQUE: AP portable view done at 11:24 p.m..COMPARISON: 11/10/2020 chest x-ray done at 4:03 a.m..TECHNICAL QUALITY: Satisfactory .FINDINGS:Endotracheal tube tip 6.5 cm above the graham and repositioning more distally 3 cm may be helpful.Cardio mediastinal silhouettes unchanged.Normal central vascularity.Unchanged consolidation lung bases consistent with pneumonia with no pleural fluid or pneumothorax.IMPRESSION:1. High endotracheal tube and repositioning more distally 3 cm may be helpful.2. Unchanged bilateral pneumonia.Electronically signed by: Reji Ballesteros (Nov 11, 2020 01:15:28)
[2020-11-11] MEDS ORDERED: VERSED IVP PRN ×2 (01:26→03:00)
[2020-11-11 02:22] LABS: ABG BASE EXCESS -7.7 mmol/L (-2.0-2.0); ABG HCO3 21.9 mmol/L (22-26)
[2020-11-11 02:24] LABS: ABG ALLEN TEST POS
[2020-11-11] MEDS: VISTARIL PO SCH (02:39)
[2020-11-11] MEDS: MORPHINE SULFATE JET NEB NEB SCH ×2 (03:50→05:45)
[2020-11-11] MEDS: MUCOMYST 20% 200 MG/ML NEB SCH ×2 (03:51→05:45)
[2020-11-11] MEDS: PROVENTIL NEB TX 0.083% 2.5MG/ 3ML NEB SCH ×2 (03:51→05:45)
[2020-11-11] MEDS: SOLU-Medrol 125 MG VIAL IVP SCH (04:10)
--- NOTE | 2020-11-11 04:57 | RAD ---
PROCEDURE: Chest X-ray 1 View .HISTORY: Endotracheal tube adjustment.TECHNIQUE: AP portable view done at 4:21 a.m..COMPARISON: 11/10/2020.TECHNICAL QUALITY: Satisfactory .FINDINGS:Endotracheal tube tip 3 cm above the graham in good position.Normal size heart.Mediastinum and hilar regions show no masses or lymphadenopathy .Normal central vascularity .Unchanged consolidation lung bases with no pleural fluid or pneumothorax.No acute bony abnormality .IMPRESSION:1. Good endotracheal tube placement.2. Unchanged bilateral pneumonia.Electronically signed by: Reji Ballesteros (Nov 11, 2020 04:55:17)
[2020-11-11] MEDS: TESSALON PERLES PO SCH (05:13)
[2020-11-11] MEDS: MYLICON TAB 80 MG CHEW PO SCH (05:13)
[2020-11-11] MEDS: FORTAZ or TAZICEF VIAL INJ IV SCH (05:34)
[2020-11-11 06:09] LABS: ABG BASE EXCESS -13.5 mmol/L (-2.0-2.0); ABG HCO3 18.4 mmol/L (22-26)
[2020-11-11 06:11] LABS: ABG ALLEN TEST POS
[2020-11-11 07:00] VITALS: BP 75/52
[2020-11-11 07:07] LABS: BASOPHILS # (AUTO) 0.1 X10^3/uL (0.0-0.1); BASOPHILS % (AUTO) 0.3 % (0.2-1.0); EOSINOPHILS # (AUTO) 0.1 x10^3/uL (0.0-0.2); EOSINOPHILS % (AUTO) 0.3 % (0.9-2.9); HEMATOCRIT 34.3 % (42.0-54.0); HEMOGLOBIN 10.3 g/dL (13.5-18.0); LYMPHOCYTES # (AUTO) 0.3 X10^3/uL (1.3-2.9); LYMPHOCYTES % (AUTO) 1.1 % (21.0-51.0); MEAN CORPUSCULAR HEMOGLOBIN 27.4 pg (27.0-34.0); MEAN CORPUSCULAR HGB CONC 30.1 g/dL (33.0-35.0); MEAN CORPUSCULAR VOLUME 91.1 fL (80.0-100.0); MEAN PLATELET VOLUME 8.3 fL (7.4-11.0); MONOCYTES # (AUTO) 0.1 x10^3/uL (0.3-0.8); MONOCYTES % (AUTO) 0.4 % (0.0-13.0); NEUTROPHILS # (AUTO) 28.7 x10^3/uL (2.2-4.8); NEUTROPHILS % (AUTO) 97.9 % (42.0-75.0); PLATELET COUNT 178 X10^3/uL (150.0-450.0); RED BLOOD COUNT 3.77 X10^6/uL (4.7-6.0); RED CELL DISTRIBUTION WIDTH 15.5 % (11.6-16.5); WHITE BLOOD COUNT 29.3 X10^3/uL (3.6-10.0)
[2020-11-11 07:14] LABS: CALCIUM 7.1 mg/dL (8.5-10.1); CARBON DIOXIDE 18.2 mmol/L (21-32); COR CA(FOR HYPOALB) 8.7 mg/dL (8.5-10.1); CREATININE 2.52 mg/dL (0.70-1.30); TOTAL PROTEIN 5.3 g/dL (6.4-8.2)
[2020-11-11 07:38] LABS: BAND NEUTROPHILS % 7 % (0-10); PLATELET MORPHOLOGY COMMENT NORMAL (NORMAL)
[2020-11-11 08:00] LABS: PREALBUMIN 33.1 mg/dL (18-35.7)
[2020-11-11] MEDS ORDERED: LEVAQUIN PREMIX IV 250 MG 250 MG/50 ML BAG IV SCH (09:00)
[2020-11-11] MEDS ORDERED: PEPCID TAB 20 MG PO SCH (09:00)
[2020-11-12] MEDS ORDERED: FORTAZ or TAZICEF VIAL INJ IV SCH (09:00)
--- NOTE | 2021-01-05 19:35 | PCM.PROG ---
Progress Note - Progress Note for Day of Date of Exam: 11/10/20 - Subjective Subjective: WAS ADMITTED FOR TREATMENT OF PNEUMONIA DUE TO COVID-19 AND HYPOXIA. TODAY, HE IS ALERT, SITTING ON THE SIDE OF THE BED ON MORNING ROUNDS. HE CONTINUES WITH COMPLAINT OF A NON-PRODUCTIVE COUGH, SHORTNESS OF BREATH, AND GENERALIZED WEAKNESS. HE WAS PLACED ON THE BIPAP OVER THE WEEKEND. HE IS CURRENTLY ON 100% FI02. HE DOES APPEAR TO HAVE LABORED BREATHING THIS MORNING. HIS SATURATIONS DROPPED TO THE 70s MULTIPLE TIMES THROUGHOUT THE NIGHT, BUT RECOVED TO 88-94%. HE HAS RECEIVED ONE UNIT OF CONVALESCENT PLASMA SINCE ADMISSION. ON EXAMINATION, HEART IS REGULAR IN RATE AND RHYTHM. BILATERAL LUNGS ARE NOTED WITH DIMINISHED LUNG SOUNDS THROUGHOUT. ABDOMEN IS ROUND, SOFT, AND NON-TENDER WITH NORMAL BOWEL SOUNDS NOTED IN ALL QUADRANTS. HIS VITALS THIS MORNING ARE: 97.9-84-28-94%-135/89. LABS WERE OBTAINED. ABNORMAL LAB VALUES INCLUDE THE FOLLOWING: WBC 19.5, HGB 13.2, HCT 40.9, D-DIMER 1.90, BUN 28, GLUCOSE 206, CALCIUM 6.9, FERRITIN 682, TOTAL PROTEIN 5.5, ALBUMIN 2.2. AN ABG W OBTAINED AND REVEALED: PH 7.510, PC02 33, P02 66, HC03 26.3, 02 SAT 95, BASE EXCESS 3.6, A-A GRADIENT 606, FI02 100. A CHEST XRAY WAS OBTAINED AND REVEALED: Unchanged bibasilar pneumonia greatest on the left. HE IS CURRENTLY RECEIVING NORMAL SALINE AT 75 ML/HR, REMDESIVIR 100MG IV DAILY, FORTAZ 1G IV Q12H, LEVAQUIN 750MG IV Q48H, ALBUTEROL NEBS Q6H, BROVANA NEB TX BID, MUCOMYST IN NEBS Q6H, PULMICORT NEBS BID, KLONOPIN 0.5MG PO BID, ASCORBIC ACID 1500MG IV Q6H, LIPITOR 80MG PO HS, TESSALON PERLES 200MG PO TID, VISTARIL 25MG PO Q6H, ZYRTEC 10MG PO DAILY, TUSSIONEX 5ML PO Q12H, COLACE 100MG PO HS, LOVENOX 100MG BID, PEPCID 20MG PO BID, DIFLUCAN 100MG PO DAILY, ROBITUSSIN DM 10ML PO QID, IVERMECTIN- PHARMACY TO DOSE, ZOFRAN COCKTAIL Q8H PRN, GI COCKTAIL 15ML PO QID, MAGIC MOUTHWASH QID, MILK OF MAG BID PRN, MELATONIN 10MG PO HS, SOLU-MEDROL 125MG IV Q6H, SINGULAIR 10MG PO HS, PROTONIX 40MG PO DAILY, THIAMINE 200MG IV BID, ELIEZER-DUR 300MG PO BID, ZINC SULFATE 220MG PO DAILY, FLONASE 2 SPRAYS BID, SIMETHICONE 80MG PO TID, AND SCOPOLOMINE AT BEDTIME. WE WILL CONTINUE WITH CURRENT PLAN OF CARE TODAY AND ADD TPN, ALBUMIN, AND CHECK A THEOPHYLLINE LEVEL TWICE A WEEK. OTHERWISE, WE PLAN TO FOLLOW UP WITH AM LABS AND CONTINUE TO MONITOR. TIME SPENT ON CLINICAL ASSESSMENT, REVIEWING LABS AND IMAGING, DECISION MAKING, AND DOCUMENTATION GREATER THAN 75 MINUTES. - Past Medical Family Social History Past Med/Fam/Surg Hx: No changes since H&P Allergies: Allergies No Known Drug Allergies Allergy (Verified 10/27/20 15:06) - Review of Systems ROS: No change since H&P - Vital Signs and I&O's Vital Signs: Temperature 97.2 F Pulse Rate [Left Radial] 75 Pulse Rate 117 Respiratory Rate 30 Blood Pressure [Left Arm] 171/83 Blood Pressure 75/52 O2 Sat by Pulse Oximetry 59 - Physical Exam Oriented: Normal Eyes: Normal Ear: Normal Nose: Normal Throat: Normal Respiratory: Generalized, Diminished Cardiovascular: Normal : Normal Auscultation: Bowel Sounds: Normal Tenderness: Normal Skin: Normal Musculoskeletal: Normal Psychiatric: Normal Mood Description: Calm Affect: Normal Speech Pattern: Clear, Delayed - Laboratory and Diagnostics Result Diagrams: 11/11/20 06:47 11/11/20 06:47 Labs: 10/27/20 15:29 Blood Blood Culture - Final 10/27/20 15:24 Blood Blood Culture - Final Laboratory WBC 29.3 X10^3/uL (3.6-10.0) H D 11/11/20 06:47 RBC 3.77 X10^6/uL (4.7-6.0) L 11/11/20 06:47 Hgb 10.3 g/dL (13.5-18.0) L D 11/11/20 06:47 Hct 34.3 % (42.0-54.0) L 11/11/20 06:47 MCV 91.1 fL (80.0-100.0) 11/11/20 06:47 MCH 27.4 pg (27.0-34.0) 11/11/20 06:47 MCHC 30.1 g/dL (33.0-35.0) L 11/11/20 06:47 RDW 15.5 % (11.6-16.5) 11/11/20 06:47 Plt Count 178 X10^3/uL (150.0-450.0) 11/11/20 06:47 Plt Count Comment Adequate (ADEQUATE) 11/11/20 06:47 MPV 8.3 fL (7.4-11.0) 11/11/20 06:47 Neut % (Auto) 97.9 % (42.0-75.0) H 11/11/20 06:47 Lymph % (Auto) 1.1 % (21.0-51.0) L 11/11/20 06:47 [place] % (Auto) 0.4 % (0.0-13.0) 11/11/20 06:47 Eos % (Auto) 0.3 % (0.9-2.9) L 11/11/20 06:47 Baso % (Auto) 0.3 % (0.2-1.0) 11/11/20 06:47 Neut # (Auto) 28.7 x10^3/uL (2.2-4.8) H 11/11/20 06:47 Lymph # (Auto) 0.3 X10^3/uL (1.3-2.9) L 11/11/20 06:47 [place] # (Auto) 0.1 x10^3/uL (0.3-0.8) L 11/11/20 06:47 Eos # (Auto) 0.1 x10^3/uL (0.0-0.2) 11/11/20 06:47 Baso # (Auto) 0.1 X10^3/uL (0.0-0.1) 11/11/20 06:47 Absolute Nucleated RBC 0.4 /100WBC 11/11/20 06:47 Total Counted 100 11/11/20 06:47 Neutrophils % (Manual) 89 % (39-76) H 11/11/20 06:47 Band Neutrophils % 7 % (0-10) 11/11/20 06:47 Lymphocytes % (Manual) Not Reportable 11/11/20 06:47 Monocytes % (Manual) 4 % (4-9) 11/11/20 06:47 Eosinophils % (Manual) 1 % (0-6) 10/27/20 14:48 Plt Morphology Comment Normal (NORMAL) 11/11/20 06:47 RBC Morphology Normal (NORMAL) 11/11/20 06:47 D-Dimer 1.97 ug/ml (0.0-0.57) H* 11/11/20 06:47 Sample Site [place] 11/11/20 06:06 ABG pH 7.010 (7.35-7.45) L* 11/11/20 06:06 ABG pCO2 73.0 mmHg (35.0-45.0) H* 11/11/20 06:06 ABG pO2 54.0 mmHg (80.0-100.0) L 11/11/20 06:06 ABG HCO3 18.4 mmol/L (22-26) L 11/11/20 06:06 ABG O2 Saturation 68.0 % (90-100) L* 11/11/20 06:06 ABG Base Excess -13.5 mmol/L (-2.0-2.0) L 11/11/20 06:06 Ramesh Test Pos 11/11/20 06:06 A-a Gradient 568.0 mmHg 11/11/20 06:06 FiO2 100.0 11/11/20 06:06 Blood Gas Comments [facility] 11/11/20 06:06 Sodium 141 mmol/L (136-145) 11/11/20 06:47 Corrected Sodium 148 mmol/L (136-145) H 11/11/20 06:47 Potassium 5.9 mmol/L (3.5-5.1) H 11/11/20 06:47 Chloride 107 mmol/L (98-107) 11/11/20 06:47 Carbon Dioxide 18.2 mmol/L (21-32) L 11/11/20 06:47 BUN 46 mg/dL (7-18) H 11/11/20 06:47 Creatinine 2.52 mg/dL (0.70-1.30) H 11/11/20 06:47 Est GFR (MDRD) Af Amer 33 (>60) L 11/11/20 06:47 Est GFR (MDRD) Non-Af 27 (>60) L 11/11/20 06:47 Glucose 374 mg/dL (65-99) H 11/11/20 06:47 POC Glucose (mg/dL) 174 mg/dL (65-99) H 11/07/20 11:53 Lactic Acid 9.2 mmol/L (0.4-2.0) H 11/11/20 06:47 Calcium 7.1 mg/dL (8.5-10.1) L 11/11/20 06:47 Corrected Calcium 8.7 mg/dL (8.5-10.1) 11/11/20 06:47 Magnesium 2.4 mg/dL (1.7-2.9) 11/03/20 01:51 Ferritin 6396 ng/mL (26-388) H 11/11/20 06:47 Total Bilirubin 0.80 mg/dL (0.2-1.0) 11/11/20 06:47 AST 233 Units/L (15-37) H 11/11/20 06:47 ALT 343 Units/L (12-78) H 11/11/20 06:47 Alkaline Phosphatase 75 Units/L (46-116) 11/11/20 06:47 Creatine Kinase 403 Units/L (39-308) H 11/09/20 18:40 CK-MB (CK-2) 4.0 ng/mL (0-4.0) 11/09/20 18:40 CK/CKMB % Calc 1.0 % (<4) 11/09/20 18:40 Troponin I 0.16 ng/mL (0-1.5) 11/09/20 18:40 C-Reactive Protein 1.10 mg/L (0-3.0) 11/11/20 06:47 B-Natriuretic Peptide 17.2 pg/mL (0-79) 11/11/20 06:47 Total Protein 5.3 g/dL (6.4-8.2) L 11/11/20 06:47 Albumin 2.0 g/dL (3.4-5.0) L 11/11/20 06:47 Globulin 3.3 g/dL (2.5-4.5) 11/11/20 06:47 Albumin/Globulin Ratio 0.6 Ratio (1.1-2.1) L 11/11/20 06:47 Prealbumin 33.1 mg/dL (18-35.7) 11/11/20 06:47 Specimen Type Catherized urine 11/10/20 06:05 Urine Color Yellow (YELLOW) 11/10/20 06:05 Urine Appearance Clear (CLEAR) 11/10/20 06:05 Urine pH 7.0 (5.0 - 8.0) 11/10/20 06:05 Ur Specific [place] 1.015 (1.000-1.030) 11/10/20 06:05 Urine Protein 1+ (NEGATIVE) 11/10/20 06:05 Urine Glucose (UA) Negative (NEGATIVE) 11/10/20 06:05 Urine Ketones Negative (NEGATIVE) 11/10/20 06:05 Urine Occult Blood Negative (NEGATIVE) 11/10/20 06:05 Urine Nitrite Negative (NEGATIVE) 11/10/20 06:05 Urine Bilirubin Negative (NEGATIVE) 11/10/20 06:05 Urine Urobilinogen Normal (NORMAL) 11/10/20 06:05 Ur Leukocyte Esterase Negative (NEGATIVE) 11/10/20 06:05 Urine RBC 0-2 /HPF (0-3) 11/10/20 06:05 Urine WBC 0-2 /HPF (0-5) 11/10/20 06:05 Ur Squamous Epith Cells Rare /HPF (NEGATIVE) 11/10/20 06:05 Urine Bacteria Negative /HPF (NEGATIVE) 11/10/20 06:05 Ur Culture Indicated? No/not indicated 11/10/20 06:05 Theophylline 7.0 ug/mL (10-20) L 11/10/20 05:34 Influenza Type A (PCR) Negative (NEGATIVE) 10/27/20 15:21 Influenza Type B (PCR) Negative (NEGATIVE) 10/27/20 15:21 Miscellaneous Test Resp panel 11/10/20 18:35 Blood Type O POSITIVE 10/28/20 12:30 - Plan (1) Pneumonia due to 2019 novel coronavirus Status: Acute Plan: SUPPLEMENTAL OXYGEN, NORMAL SALINE AT 75 ML/HR, TPN, ALBUMIN, FORTAZ 1G IV Q12H, LEVAQUIN 750MG IV Q48H, ALBUTEROL NEBS QID, MUCOMYST IN NEBS QID, BROVANA NEBS BID, PULMICORT NEBS BID, KLONOPIN 0.5MG PO BID, ASCORBIC ACID 1500MG IV Q6H, LIPITOR 80MG PO HS, TESSALON PERLES 200MG PO TID, ZYRTEC 10MG PO DAILY, TUSSIONEX 5ML PO Q12H PRN, COLACE 100MG PO HS, LOVENOX 100MG BID, PEPCID 20MG PO BID, DIFLUCAN 100MG PO DAILY, ROBITUSSIN DM 10ML PO QID, IVERMECTIN- PHARMACY TO DOSE, MAGIC MOUTHWASH QID, MILK OF MAG BID PRN, MELATONIN 10MG PO HS, SOLU-MEDROL 125MG IV Q6H, SINGULAIR 10MG PO HS, PROTONIX 40MG PO DAILY, THIAMINE 200MG IV BID, ELIEZER-DUR 300MG PO BID, AND ZINC SULFATE 220MG PO DAILY, ZOFRAN COCKTAIL Q8H PRN NAUSEA, GI COCKTAIL 15ML PO QID, SIMETUCIBE 80MG PO TID, SCOPOLOMINE AT BEDTIME, FLONASE 2 SPRAYS BID (2) Hypoxia Status: Acute
== END 2020-11-11 07:05 | disposition expired | DRG 177 ==
LOC: ER 14:17 → EDSTATUS 14:55 → MED/SURG 16:45 → ICU 11-09 11:33
PROVIDERS: ADMIT Internal Medicine; ATTEND Internal Medicine
DX: J12.82 Pneumonia due to coronavirus disease 2019; I46.9 Cardiac arrest, cause unspecified; I10 Essential (primary) hypertension; U07.1 COVID-19; R79.82 Elevated C-reactive protein (CRP); R79.89 Other specified abnormal findings of blood chemistry; R26.89 Other abnormalities of gait and mobility; R06.02 Shortness of breath; I87.2 Venous insufficiency (chronic) (peripheral)